=== PATIENT | male | born 1945 | race Caucasian/White ===

== ENCOUNTER → 2023-04-09 09:44 | Outpatient (REF) | payer OTHER, SELFPAY ==
[2023-04-09 10:12] VITALS: BP 131/87; BP_SYST 81
[2023-04-09 10:40] VITALS: BP 122/81
== END ==
LOC: RADI 09:44
PROVIDERS: ATTENDING PHYSICIAN Nurse Practitioner Family; FAMILY PHYSICIAN Nurse Practitioner Family; REFERRING PHYSICIAN Internal Medicine Hematology & Oncology
DX: J90 Pleural effusion, not elsewhere classified (principal)
CPT/HCPCS: 32555; 71045

== ENCOUNTER → 2023-04-30 11:28 | Outpatient (REF) | payer OTHER, SELFPAY ==
[2023-04-30 11:45] VITALS: BP 126/90; BP_SYST 73
[2023-04-30 12:21] VITALS: BP 122/90; BP_SYST 67
== END ==
LOC: RADI 11:28
PROVIDERS: ATTENDING PHYSICIAN Internal Medicine Hematology & Oncology; FAMILY PHYSICIAN Nurse Practitioner Family
DX: C91.10 Chronic lymphocytic leukemia of B-cell type not having achieved remission (principal); J91.0 Malignant pleural effusion
CPT/HCPCS: 32555; 71045; 71260; 74177; Q9967

== ENCOUNTER → 2023-06-01 10:08 | Outpatient (REF) | payer OTHER, SELFPAY ==
[2023-06-01 10:19] VITALS: BP 119/83; BP_SYST 94
[2023-06-01 10:51] VITALS: BP 105/76
== END ==
LOC: RADI 10:08
PROVIDERS: ATTENDING PHYSICIAN Nurse Practitioner Family
DX: J90 Pleural effusion, not elsewhere classified (principal); R06.02 Shortness of breath
CPT/HCPCS: 32555; 71045

== ENCOUNTER → 2023-07-03 09:33 | Outpatient (REF) | payer OTHER, SELFPAY ==
[2023-07-03 10:45] VITALS: BP 142/98; BP_SYST 94
[2023-07-03 12:22] LABS: Blood Urea Nitrogen 17 mg/dl (9-20); Calcium 9.2 mg/dl (8.4-10.2); Carbon Dioxide 29 mmol/L (22-30); Chloride 104 mmol/L (98-107); Glucose 109 mg/dl (70-99); Potassium 4.4 mmol/L (3.5-5.1); Sodium 142 mmol/L (135-145); eGFR > 60.00
[2023-07-03 12:26] LABS: Body Fluid Mononuclear 66.7 %; Body Fluid Polymorphonuclear 33.3 %; Body Fluid WBC 285 /CUMM
[2023-07-03 12:32] LABS: Body Fluid pH 7.47
[2023-07-03 12:52] LABS: TSH Reflex To Free T4 1.55 uIU/ml (0.47-4.68)
[2023-07-03 12:57] LABS: Body Fluid Second Tech BP
[2023-07-03 13:04] LABS: Body Fluid Creatinine 0.8 mg/dl; Body Fluid Glucose 120 mg/dl; Body Fluid LDH 150 U/L
[2023-07-03 13:06] LABS: Body Fluid Triglycerides < 30 mg/dl
[2023-07-03 13:20] LABS: Body Fluid Protein 3.7 g/dl
== END ==
LOC: RADI 09:33
PROVIDERS: Nurse Practitioner Family; ATTENDING PHYSICIAN Nurse Practitioner Family
DX: J90 Pleural effusion, not elsewhere classified (principal); R06.02 Shortness of breath
CPT/HCPCS: 88305; 32555; 36415; 71045; 80048; 82570; 82945; 83615; 83986; 84157; 84443; 84478; 87015; 87070; 87102; 87116; 87205; 88112; 88341; 88342; 89051

== ENCOUNTER → 2023-07-20 06:42 | Outpatient (REF) | payer OTHER, SELFPAY | LOC: HWRAD 06:42 | PROVIDERS: ATTENDING PHYSICIAN Internal Medicine Critical Care Medicine; FAMILY PHYSICIAN Nurse Practitioner Family | DX: J90 Pleural effusion, not elsewhere classified (principal) | CPT/HCPCS: 76700; 93975 ==

== ENCOUNTER → 2023-07-27 09:12 | Outpatient (REF) | payer OTHER, SELFPAY ==
[2023-07-27 09:45] VITALS: BP 134/92; BP_SYST 96
[2023-07-27 10:18] VITALS: BP 111/87; BP_SYST 89
[2023-07-27 10:36] VITALS: BP 111/87
== END ==
LOC: RADI 09:12
PROVIDERS: ATTENDING PHYSICIAN Nurse Practitioner Family
DX: J90 Pleural effusion, not elsewhere classified (principal); I10 Essential (primary) hypertension; E78.5 Hyperlipidemia, unspecified; Z86.73 Personal history of transient ischemic attack (TIA), and cerebral infarction without residual deficits
CPT/HCPCS: 32555; 71045

== ENCOUNTER → 2023-08-16 09:24 | Outpatient (REF) | payer OTHER, SELFPAY ==
[2023-08-16 09:30] VITALS: BP 121/92; BP_SYST 76
[2023-08-16 10:30] VITALS: BP 113/89; BP_SYST 80
== END ==
LOC: RADI 09:24
PROVIDERS: ATTENDING PHYSICIAN Internal Medicine Critical Care Medicine
DX: J90 Pleural effusion, not elsewhere classified (principal)
CPT/HCPCS: 88305; 32555; 71045; 88112

== ENCOUNTER → 2023-09-12 10:56 | Outpatient (REF) | payer OTHER, SELFPAY ==
[2023-09-12 11:21] VITALS: BP 128/90; BP_SYST 77
[2023-09-12 11:45] VITALS: BP 105/77
== END ==
LOC: RADI 10:56
PROVIDERS: ATTENDING PHYSICIAN Internal Medicine Critical Care Medicine; FAMILY PHYSICIAN Nurse Practitioner Family
DX: J90 Pleural effusion, not elsewhere classified (principal); J81.1 Chronic pulmonary edema
CPT/HCPCS: 32555; 71045

== ENCOUNTER → 2023-09-25 06:54 | Outpatient (REF) | payer OTHER, SELFPAY | LOC: PAVMRI 06:54 | PROVIDERS: ATTENDING PHYSICIAN Orthopaedic Surgery; FAMILY PHYSICIAN Nurse Practitioner Family | DX: M54.50 Low back pain, unspecified (principal) | CPT/HCPCS: 72148 ==

== ENCOUNTER → 2023-10-05 08:24 | Outpatient (REF) | payer OTHER, SELFPAY ==
[2023-10-05 08:48] VITALS: BP 131/90; BP_SYST 85
[2023-10-05 09:13] VITALS: BP 114/79; BP_SYST 82
== END ==
LOC: RADI 08:24
PROVIDERS: ATTENDING PHYSICIAN Nurse Practitioner Family
DX: J90 Pleural effusion, not elsewhere classified (principal)
CPT/HCPCS: 32555; 71045

== ENCOUNTER → 2023-11-02 08:19 | Outpatient (REF) | payer OTHER, SELFPAY ==
[2023-11-02 08:30] VITALS: BP 119/85; BP_SYST 76
[2023-11-02 09:15] VITALS: BP 124/88
== END ==
LOC: RADI 08:19
PROVIDERS: ATTENDING PHYSICIAN Internal Medicine Critical Care Medicine
DX: J90 Pleural effusion, not elsewhere classified (principal)
CPT/HCPCS: 32555; 71045

== ENCOUNTER → 2023-11-05 07:38 | Outpatient (REF) | payer OTHER, SELFPAY | LOC: HWRAD 07:38 | PROVIDERS: ATTENDING PHYSICIAN Internal Medicine Hematology & Oncology; FAMILY PHYSICIAN Nurse Practitioner Family | DX: C91.10 Chronic lymphocytic leukemia of B-cell type not having achieved remission (principal); D64.9 Anemia, unspecified | CPT/HCPCS: 71260; 74177; Q9967 ==

== ENCOUNTER → 2023-11-23 11:57 | Outpatient (REF) | payer OTHER, SELFPAY ==
[2023-11-23 12:30] VITALS: BP 125/90; BP_SYST 73
== END ==
LOC: RADI 11:57
PROVIDERS: ATTENDING PHYSICIAN Internal Medicine Critical Care Medicine; FAMILY PHYSICIAN Nurse Practitioner Family
DX: J90 Pleural effusion, not elsewhere classified (principal)
CPT/HCPCS: 32555; 71045

== ENCOUNTER → 2023-12-19 08:24 | Outpatient (REF) | payer OTHER, SELFPAY ==
[2023-12-19 08:39] VITALS: BP 125/76; BP_SYST 75
[2023-12-19 09:07] VITALS: BP 107/76; BP_SYST 69
== END ==
LOC: RADI 08:24
PROVIDERS: ATTENDING PHYSICIAN Nurse Practitioner Family; FAMILY PHYSICIAN Nurse Practitioner Family
DX: J90 Pleural effusion, not elsewhere classified (principal)
CPT/HCPCS: 32555; 71045

== ENCOUNTER → 2024-01-03 09:53 | Outpatient (REF) | payer OTHER, SELFPAY | LOC: HWRAD 09:53 | PROVIDERS: ATTENDING PHYSICIAN Nurse Practitioner Family | DX: R06.09 Other forms of dyspnea (principal) | CPT/HCPCS: 71046 ==

== ENCOUNTER → 2024-01-04 07:14 | Outpatient (REF) | payer OTHER, SELFPAY ==
[2024-01-04 07:25] VITALS: BP 127/94; BP_SYST 98
[2024-01-04 08:06] VITALS: BP 115/88; BP_SYST 86
[2024-01-04 08:17] VITALS: BP 115/88
== END ==
LOC: RADI 07:14
PROVIDERS: ATTENDING PHYSICIAN Nurse Practitioner Family; FAMILY PHYSICIAN Nurse Practitioner Family
DX: J90 Pleural effusion, not elsewhere classified (principal)
CPT/HCPCS: 32555; 71045

== ENCOUNTER → 2024-01-18 07:06 | Outpatient (REF) | payer OTHER, SELFPAY ==
[2024-01-18 07:15] VITALS: BP 130/93; BP_SYST 96
[2024-01-18 08:05] VITALS: BP 122/84; BP_SYST 88
== END ==
LOC: RADI 07:06
PROVIDERS: ATTENDING PHYSICIAN Nurse Practitioner Family; FAMILY PHYSICIAN Nurse Practitioner Family
DX: J90 Pleural effusion, not elsewhere classified (principal)
CPT/HCPCS: 32555; 71045

== ENCOUNTER → 2024-01-31 07:29 | Outpatient (REF) | payer OTHER, SELFPAY ==
[2024-01-31 07:55] VITALS: BP 138/103; BP_SYST 94
[2024-01-31 08:12] VITALS: BP 96/75
== END ==
LOC: RADI 07:29
PROVIDERS: ATTENDING PHYSICIAN Nurse Practitioner Family
DX: J90 Pleural effusion, not elsewhere classified (principal)
CPT/HCPCS: 32555; 71045

== ENCOUNTER → 2024-02-11 09:19 | Outpatient (REF) | payer OTHER, SELFPAY ==
[2024-02-11 09:50] VITALS: BP 124/71; BP_SYST 87
[2024-02-11 10:10] VITALS: BP 111/64
== END ==
LOC: RADI 09:19
PROVIDERS: ATTENDING PHYSICIAN Nurse Practitioner Family
DX: J90 Pleural effusion, not elsewhere classified (principal)
CPT/HCPCS: 32555; 71045

== ENCOUNTER → 2024-02-25 14:54 | Outpatient (REF) | payer OTHER, SELFPAY ==
[2024-02-25 08:58] VITALS: BP 132/93; BP_SYST 92
== END ==
LOC: RADI 14:54
PROVIDERS: ATTENDING PHYSICIAN Nurse Practitioner Family
DX: J90 Pleural effusion, not elsewhere classified (principal)
CPT/HCPCS: 32555; 71045

== ENCOUNTER → 2024-03-05 09:13 | Outpatient (REF) | payer OTHER, SELFPAY ==
[2024-03-05 09:25] VITALS: BP 128/78; BP_SYST 85
[2024-03-05 10:25] VITALS: BP 110/84
== END ==
LOC: RADI 09:13
PROVIDERS: ATTENDING PHYSICIAN Nurse Practitioner Family
DX: J90 Pleural effusion, not elsewhere classified (principal); C91.10 Chronic lymphocytic leukemia of B-cell type not having achieved remission
CPT/HCPCS: 88305; 32555; 71045; 88112

== ENCOUNTER → 2024-03-14 09:48 | Outpatient (REF) | payer OTHER, SELFPAY ==
[2024-03-14 09:55] VITALS: BP 125/81; BP_SYST 91
== END ==
LOC: RADI 09:48
PROVIDERS: ATTENDING PHYSICIAN Nurse Practitioner Family
DX: J90 Pleural effusion, not elsewhere classified (principal)
CPT/HCPCS: 32555; 71045

== ENCOUNTER → 2024-03-19 09:18 | Outpatient (REF) | payer OTHER, SELFPAY | LOC: PET 09:18 | PROVIDERS: ATTENDING PHYSICIAN Internal Medicine Medical Oncology | DX: C91.10 Chronic lymphocytic leukemia of B-cell type not having achieved remission (principal) | CPT/HCPCS: 78815; A9552 ==

== ENCOUNTER → 2024-03-24 09:05 | Outpatient (REF) | payer OTHER, SELFPAY ==
[2024-03-24 09:30] VITALS: BP 115/69; BP_SYST 87
[2024-03-24 10:15] VITALS: BP 103/79
== END ==
LOC: RADI 09:05
PROVIDERS: ATTENDING PHYSICIAN Nurse Practitioner Family
DX: J90 Pleural effusion, not elsewhere classified (principal)
CPT/HCPCS: 32555; 71045

== ENCOUNTER → 2024-04-01 09:25 | Outpatient (REF) | payer OTHER, SELFPAY ==
[2024-04-01 09:35] VITALS: BP 114/71; BP_SYST 88
[2024-04-01 10:21] VITALS: BP 111/83; BP_SYST 92
[2024-04-01 10:54] VITALS: BP 111/83
== END ==
LOC: RADI 09:25
PROVIDERS: ATTENDING PHYSICIAN Nurse Practitioner Family; FAMILY PHYSICIAN Nurse Practitioner Family
DX: J90 Pleural effusion, not elsewhere classified (principal)
CPT/HCPCS: 32555; 71045

== ENCOUNTER → 2024-04-09 09:26 | Outpatient (REF) | payer OTHER, SELFPAY ==
[2024-04-09 09:44] VITALS: BP 121/75; BP_SYST 96
[2024-04-09 10:18] VITALS: BP 104/74
== END ==
LOC: RADI 09:26
PROVIDERS: ATTENDING PHYSICIAN Internal Medicine Critical Care Medicine; FAMILY PHYSICIAN Nurse Practitioner Family
DX: J90 Pleural effusion, not elsewhere classified (principal)
CPT/HCPCS: 32555; 71045

== ENCOUNTER → 2024-04-21 13:03 | Outpatient (REF) | payer OTHER, SELFPAY | LOC: RAD 13:03 | PROVIDERS: ATTENDING PHYSICIAN Nurse Practitioner Adult Health; FAMILY PHYSICIAN Nurse Practitioner Family | DX: M79.89 Other specified soft tissue disorders (principal) | CPT/HCPCS: 93971 ==

== ENCOUNTER → 2024-04-23 09:01 | Outpatient (REF) | payer OTHER, SELFPAY ==
[2024-04-23 09:15] VITALS: BP 110/79; BP_SYST 103
[2024-04-23 09:39] VITALS: BP 114/94; BP_SYST 95
== END ==
LOC: RADI 09:01
PROVIDERS: ATTENDING PHYSICIAN Internal Medicine Critical Care Medicine; FAMILY PHYSICIAN Nurse Practitioner Family
DX: J90 Pleural effusion, not elsewhere classified (principal)
CPT/HCPCS: 32555; 71045

== ENCOUNTER → 2024-04-30 09:47 | Outpatient (REF) | payer OTHER, SELFPAY ==
[2024-04-30 10:04] VITALS: BP 122/99; BP_SYST 98
[2024-04-30 10:40] VITALS: BP 101/83
== END ==
LOC: RADI 09:47
PROVIDERS: ATTENDING PHYSICIAN Nurse Practitioner Family; FAMILY PHYSICIAN Nurse Practitioner Family
DX: J90 Pleural effusion, not elsewhere classified (principal)
CPT/HCPCS: 32555; 71045

== ENCOUNTER → 2024-05-06 12:40 | Outpatient (REF) | payer OTHER, SELFPAY ==
[2024-05-06 12:45] VITALS: BP 120/88; BP_SYST 89
[2024-05-06 12:59] VITALS: BP 102/77
[2024-05-06 13:30] VITALS: BP 90/65; BP_SYST 82
[2024-05-06 13:35] VITALS: BP 90/65
== END ==
LOC: RADI 12:40
PROVIDERS: ATTENDING PHYSICIAN Internal Medicine Critical Care Medicine; FAMILY PHYSICIAN Nurse Practitioner Family
DX: J90 Pleural effusion, not elsewhere classified (principal)
CPT/HCPCS: 32555; 71045

== ENCOUNTER 2024-05-13 12:25 | Inpatient (IN) | payer OTHER, SELFPAY ==
[2024-05-13] VITALS (15 sets, daily range): BP systolic 87–133; BP diastolic 63–82; BMI 33.0; BMI 27.9
[2024-05-13 07:29] LABS: % Basophils 0.3 % (0-2); % Eosinophils 0.5 % (0-6); % Immature Granulocytes 0.6 % (0-0.5); % Lymphocytes 32.2 % (20.5-51.1); % Monocytes 6.1 % (1.7-9.3); % Neutrophils 60.3 % (42.2-75.2); Absolute Eosinophils 0.1 10^3/uL (0-0.7); Absolute Immature Granulocytes 0.1 10^3/uL (0-0.05); Absolute Lymphocytes 4.5 10^3/uL (1.2-3.4); Absolute Monocytes 0.9 10^3/uL (0.1-0.6); Absolute Neutrophils 8.5 10^3/uL (1.4-6.5); Hematocrit 33.7 % (39.0-52.0); Hemoglobin 10.2 g/dL (13.0-18.0); Mean Corp Hgb Conc. 30.3 g/dL (33.0-37.0); Mean Corpuscular Hgb 24.8 pg (27.0-31.0); Mean Platelet Volume 10.1 fL (7.4-10.4); Nucleated Red Blood Cells % 0.1 % (-); Platelet Count 207 10^3/uL (130-400); Red Blood Cell Count 4.11 10^6/uL (4.70-6.10); Red Cell Dist. Width 17.7 % (11.5-14.5)
[2024-05-13 07:38] LABS: ALT (SGPT) 19 U/L (0-50); AST (SGOT) 20 U/L (17-59); Albumin 3.2 g/dl (3.5-5.0); Alkaline Phosphatase 84 U/L (38-126); Blood Urea Nitrogen 19 mg/dl (9-20); Calcium 8.8 mg/dl (8.4-10.2); Carbon Dioxide 28 mmol/L (22-30); Chloride 104 mmol/L (98-107); Estimated Creatinine Clearance 88 ml/min; Glucose 211 mg/dl (70-99); Potassium 4.2 mmol/L (3.5-5.1); Sodium 140 mmol/L (135-145); Total Bilirubin 1.2 mg/dl (0.2-1.3); Total Protein 5.9 g/dl (6.3-8.2); eGFR > 60.00
--- NOTE | 2024-05-13 07:46 | ED.GENMED ---
History of Present Illness
General
Chief Complaint: Cardiac Symptoms
Source: patient
Exam Limitations: none
Time Seen by Provider: 05/13/24 06:43
Nursing documentation reviewed up to this point in time: agreed with
History of Present Illness
History of Present Illness:
78-year-old male with a past medical history of hypertension, hyperlipidemia, CLL who presents to the emergency room with for evaluation of shortness of breath. Patient is currently receiving treatment through [facility] for CLL; he
has recurrent pleural effusions and has been receiving frequent thoracentesis via interventional radiology here at [place] and in fact is scheduled for thoracentesis later this afternoon. He presents to the emergency room today with his for
evaluation of increased shortness of breath and edema. The symptoms have been ongoing for at least the past week although weight gain and edema have been ongoing for about a month�patient cites about a 25 pound weight gain. Over the past few days
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 was not able to
convince him to come to the hospital until today when shortness of breath was worsening. He denies any chest pain. He denies any fever, chills, cough. He denies any other complaints. He does take daily Lasix 40 mg p.o. however says he is
only intermittently compliant.
Past History
Past History
ED Past Medical History: CVA, HTN, Hypercholesterolemia and Other (Hernia)
ED Past Surgical History: None
Social History
Tobacco: Non-smoker
Alcohol: Occasional
Drug: None
Personal:
Living: with family
Employment: Employed
Family History
Family History: Other (Noncontributory)
Review of Systems
Review of Systems
All Other Systems: ROS reviewed and negative except as documented in HPI and ROS
Constitutional: Reports weight gain and fatigue; Denies fever or chills
Respiratory: Reports trouble breathing; Denies cough
Cardiac: Denies chest pain
ABD/GI: Denies abdominal pain, nausea or vomiting
: Denies flank pain
Musculoskeletal: Reports edema
Neurological: Denies headache
Phy Exam
Physical Exam
Physical Exam:
General: Awake, alert, oriented x3; chronically ill appearing
Head: Normocephalic, atraumatic
Eyes: Conjunctiva normal, sclera anicteric
Throat: Airway intact, handling secretions
Neck: Trachea midline, + JVD noted
Lungs: Tachypnea with mild hypoxia requiring 2 L nasal cannula; breath sounds are diminished at the lung bases and he has faint rales bilaterally
Heart: Regular rate and irregular rhythm, no murmurs, gallops, or rubs�triage tachycardia resolved by my assessment
Abd: Soft, non distended, nontender
Neuro: No gross deficits
Extremities: Anasarca with edema in all extremities; extremities are warm and well-perfused
Scores
Heart Failure Risk
Heart Failure Risk Score: Yes
History of Stroke or TIA: Yes
History of intubation for respiratory distress: No
Heart rate on ED arrival >/= 110: Yes
SaO2 <90% on arrival on room air: Yes
HR >/=110 during 3min walk test (or too ill to perform test): Yes
ECG has acute ischemic changes: No
Urea >/=12mmol/L (BUN 33.6mg/dL): No
Serum CO2>/=35mmol/L: No
Troponin I or T elevated to [place] Level (0.4mg/dL): No
NT-proBNP >/=5,000ng/L (5,000pg/ml): Yes
HF Risk Score: 5
Admission Status: VERY HIGH RISK 39.8% Consider admission to hospital
Heart Score for Chest Pain Patients
STEMI patient?: Not applicable
Withdrawal Assessment of Alcohol
Withdrawal Assessment Completed?: Not applicable
Course
Orders/Labs/Results
Orders:
Orders
05/13/24 06:43
Electrocardiogram (*1) Urgent
Reason for Study: Shortness of Breath
EKG- Treatment ONCE
CR Chest Portable - 1 View Urgent
Comment:
Reason For Exam: sob
Reason Study Needs to be Portable: Unable to Transport
05/13/24 07:16
Complete Blood Count/With Diff Urgent
Comprehensive Metabolic Panel Urgent
NT-proBNP Urgent
05/13/24 07:42
IRAD CONSULT Urgent
Consulting Provider: Desmond Iyer
Was physician already notified: Yes
Reason for Consult/Procedure: throracentesis
Acknowledgement that appropriate orders are entered: Yes
05/13/24 07:46
Furosemide [Lasix] 40 mg IV NOW STA
Abnormal Lab Results
05/13/24
07:16
WBC 14.0 H 10^3/uL
(4.8-10.8)
RBC 4.11 L 10^6/uL
(4.70-6.10)
Hgb 10.2 L g/dL
(13.0-18.0)
Hct 33.7 L %
(39.0-52.0)
MCH 24.8 L pg
(27.0-31.0)
MCHC 30.3 L g/dL
(33.0-37.0)
RDW 17.7 H %
(11.5-14.5)
Abs Immat Gran (auto) 0.1 H 10^3/uL
(0-0.05)
Absolute Neuts (auto) 8.5 H 10^3/uL
(1.4-6.5)
Absolute Lymphs (auto) 4.5 H 10^3/uL
(1.2-3.4)
Absolute Monos (auto) 0.9 H 10^3/uL
(0.1-0.6)
Immature Gran % 0.6 H %
(0-0.5)
Glucose 211 H mg/dl
(70-99)
Total Protein 5.9 L g/dl
(6.3-8.2)
Albumin 3.2 L g/dl
(3.5-5.0)
05/13/24 07:16
05/13/24 07:16
Vital Signs
Initial and Last Documented VS:
Initial Vital Signs
Pulse Resp BP Pulse Ox
116 28 112/82 100
05/13/24 06:38 05/13/24 06:38 05/13/24 06:38 05/13/24 06:38
Last Documented Vital Signs
Pulse Resp BP Pulse Ox
93 23 112/82 95
05/13/24 07:30 05/13/24 07:30 05/13/24 06:38 05/13/24 07:36
MDM/Problems Addressed
Differential Diagnosis Includes:
CHF, pneumonia, anemia, pleural effusion
MDM/Problems Addressed:
78-year-old male presents for evaluation of shortness of breath associated with weight gain and edema; known history of CLL and recurrent pleural effusions scheduled for outpatient thoracentesis later today. Vitals and exam as above�certainly by
exam he appears volume overloaded and suspect there is an element of CHF. Although likely pleural effusion contributing as well. Will place an IV check labs including a CBC and a CMP, proBNP. Check an EKG and chest x-ray. Monitor closely
reassess after the above.
Labs reviewed: CBC shows leukocytosis in the setting of known CLL; mild anemia essentially stable. CMP shows random glucose 211 no other clinically significant abnormalities, no signs of DKA. Chest x-ray reviewed by me does show bilateral pleural
effusions as well as pulmonary edema. EKG shows A-fib. Will plan to treat with IV diuretic. Discussed with interventional radiology to notify that patient will be admitted to the hospital and to facilitate thoracentesis inpatient. Case discussed
with hospitalist for admission for continued management of acute hypoxic respiratory failure secondary to CHF and recurrent pleural effusions.
Chronic conditions affecting care:
CLL
*Radiology
Radiology exam reviewed: preliminary read by ED provider
*Pulse Oximetry
Patient hypoxic: yes
*EKG
Interpreted by ED Provider?: Yes
Heart Rate: 127
Rate: tachycardiac
Rhythm: a-fib
[place]: normal axis
Interval: normal interval
QRS Pattern: low voltage
Ischemia: other (Nonspecific T wave abnormality)
*Critical Care Note
Total Time (30-74mins, 75-104mins- exclusive of procedures): Not Applicable
Data Reviewed
Review of Other/Old Records Reveals: Labs and Records
Source: patient, records and spouse
Patient Management
Discussion with other providers: Hospitalist (Discussed with hospitalist) and Optician Manager (Discussed with interventional radiologist)
Escalation/DeEscalation of care consider admission/obs:
Admission indicated
ED Attending Note
-
Portions of this chart may have been created with voice recognition software.� Occasional wrong word or��sound alike� substitutions may have occurred due to the inherent limitations of voice recognition software.
Discharge Plan
Departure
Patient Disposition: Admit
Date of Disposition: 05/13/24
Time of Disposition: 07:59
Admit to doctor: Montiel
Presentation/result/management discussed w/ accepting MD/DO: Hospitalist
Discharge Problem:
Acute hypoxic respiratory failure, Pleural effusion, CHF (congestive heart failure), Anasarca, Atrial fibrillation, Hyperglycemia
Prescriptions:
No Action
latanoprost 0.005 % Drops
1 drp LEFT EYE HS
fluticasone propionate [Flonase] 50 mcg/actuation [place],Suspension
1 spray INTRANASAL BIDPRN PRN (Reason: allergies)
rosuvastatin [Crestor] 40 mg Tablet
40 mg PO DAILY
furosemide 40 mg Tablet
40 mg PO DAILY
cyanocobalamin (vitamin B-12) [Vitamin B-12] 1,000 mcg Tablet
1,000 mcg PO DAILY
famotidine 20 mg Tablet
20 mg PO DAILY
Brukinsa 80 mg Capsule
160 mg PO BID
acyclovir 400 mg Tablet
400 mg PO BID
aspirin 81 mg Tablet
81 mg PO DAILY
Interventions
Interventions:
*Risk Screen - Suicide Last Done: 05/13/24 06:38
*General Assessment Last Done: 05/13/24 07:09
*Neglect/Abuse Screening Last Done: 05/13/24 06:38
*ED- Fall Risk Assessment Last Done: 05/13/24 07:09
*ED COVID-19 Vaccine History Last Done: 05/13/24 07:09
ED- Pulmonary Assessment Last Done: 05/13/24 07:36
ED- Cardiac Assessment Last Done: 05/13/24 07:11
Discharge Date and Time
Print Language: MACEDONIAN
[2024-05-13 07:47] LABS: NT-proBNP 1470 pg/ml
[2024-05-13] MEDS: LASIX 40 MG IV (07:56)
--- NOTE | 2024-05-13 10:22 | CON.CAR ---
Addendum entered and electronically signed by Kiel Mcclain MD 05/13/24 11:18:
I saw and examined the patient.
The ROUTE DELIVERY DRIVER or PA's note was reviewed and I agree with the note.
Comment: General: Well developed, well nourished in NAD.
Neck: Supple, no JVD, HJR, carotids +2 B/L, no bruits bilaterally.
Heart: Non displaced PMI, RRR, no murmurs, No S3, S4, no rubs.
Lungs: Scattered rhonchi at the bases
Extremities: No clubbing, cyanosis or edema bilaterally.
Neuro: Grossly nonfocal, awake, alert and oriented x3.
Jaxson has a history of CLL on Brukinsa since January 2023 and more recently on [facility] followed by [place] [facility], recurrent pleural effusions with thoracenteses approximately once per week, hypertension, hyperlipidemia, CVA in October 2019. He was
seen in our office on 05/12/2024 with lower extremity edema and shortness of breath. He was scheduled for outpatient thoracentesis later this week but presented with short of breath and found to be in CHF with bilateral pleural effusions and a
proBNP of 1470. Telemetry with episodes of likely atrial tachycardia
Will treat with IV Lasix. Will check echocardiogram. Will add low-dose Toprol for atrial tachycardia episodes if blood pressure tolerates.
Addendum entered and electronically signed by Gillian Chen PA-C 05/13/24 11:12:
of note, patient's reports on prior thoracentesis, malignant cells were found in fluid.
Original Note:
Consultation
Consultation Request
Date/Time Consultation Performed: 05/13/24
Requesting Provider: Dr. Argueta
Performing Provider: Gillian Chen PA-C for Dr. Mcclain
Reason for Consultation: CHF, B/L pleural effusions
Medical History
-
Chief Complaint: SOB
History of Present Illness:
Patient is a 78 yo M with PMH of CLL on Brukinsa since 01/2023 and more recently [facility] followed by [place] [facility], recurrent pleural effusions with thoracenteses approximately once per week (dose of Brukinsa had been decreased in past as felt to be
contributing to effusions), hypertension, hyperlipidemia, history of stroke in 10/2019 who was seen in cardiology office 05/12/24 with SOB, LE edema. He was scheduled for OP thoracentesis today and is planned for echo on Tuesday 05/16. CXR with evidence
of CHF with chronic B/L pleural effusions. ProBNP 1470. Not chronically on supp O2 at home although patient and feel would be beneficial to patient. There has been question in past about atrial fibrillation, and historically has not been felt
to have afib but SR with frequent PACs and brief runs of atrial tachycardia. Cardiology consulted for evaluation.
PMH:
recurrent pleural effusions with thoracenteses approximately once per week (dose of Brukinsa had been decreased in past as felt to be contributing to effusions)
Chronic HFpEF
CLL on Brukinsa since 01/2023 and more recently [facility] followed by [place] [facility]
PACs
Paroxysmal atrial tachycardia
hypertension
hyperlipidemia
history of stroke in 10/2019
GERD
Past Medical History
Past Medical History: Other (in HPI)
Social History
Tobacco: Non-Smoker
Personal:
Living: With Family
Employment: Retired
Family History
Family History: Diabetes
Allergies / Home Medications
Allergy/AdvReac Type Severity Reaction Status Date / Time
No Known Allergies Allergy Verified 04/23/24 09:37
�Medication �Instructions �Recorded �Confirmed �Type
fluticasone propionate 50 1 spray intranasal BIDPRN PRN 12/07/22 05/13/24 History
mcg/actuation nasal allergies
spray,suspension
latanoprost 0.005 % eye drops 1 drp LEFT EYE HS 12/07/22 05/13/24 History
rosuvastatin 40 mg tablet (Crestor) 40 mg PO HS 12/07/22 05/13/24 History
cyanocobalamin (vitamin B-12) 1,000 mcg PO DAILY 12/14/22 05/13/24 History
1,000 mcg tablet (Vitamin B-12)
famotidine 20 mg tablet 20 mg PO DAILY 12/14/22 05/13/24 History
furosemide 40 mg tablet 80 mg PO DAILY 12/14/22 05/13/24 History
zanubrutinib 80 mg capsule 160 mg PO BID 02/26/23 05/13/24 History
(Brukinsa)
acyclovir 400 mg tablet 400 mg PO Q12H 04/09/24 05/13/24 History
Beet Root Gummy 1 gummy PO DAILY 05/13/24 History
aspirin 81 mg tablet,delayed 81 mg PO DAILY 05/13/24 05/13/24 History
release
dextromethorphan-guaifenesin 30 2 tab PO DAILYPRN PRN COUGH 05/13/24 05/13/24 History
mg-600 mg tablet extended
hr (Mucinex DM)
assfqbeb-ichtwrpw-vad C 250 1 tab PO DAILY 05/13/24 05/13/24 History
mg-herbal no.124 11.66 mg
chewable tablet (Airborne Gummy)
obinutuzumab 1,000 mg/40 mL 1,000 mg IV QMONTH 05/13/24 05/13/24 History
intravenous solution
potassium chloride 20 mEq 40 meq PO DAILY 05/13/24 05/13/24 History
tablet,extended release
therapeutic multivitamin 1 tab PO DAILY 05/13/24 05/13/24 History
Review of Systems
-
History Source: Patient and Family
All other systems: Negative unless noted
Physical Exam
Vital Signs
Temp Pulse Resp BP Pulse Ox
98.6 F 104 21 109/80 92
05/13/24 09:53 05/13/24 09:30 05/13/24 09:30 05/13/24 09:00 05/13/24 09:30
Lab Results
05/13/24 07:16
05/13/24 07:16
Oxx-F-Qlpaawqqlbd Pept 1470 pg/ml 05/13/24 07:16
Physical Exam
General: No Apparent Distress, Comfortable and Other (on supp O2)
HEENT: Normocephalic, Anicteric and Moist Mucous Membranes
Respiratory: Non Labored Respirations and Other (decreased BS B/L)
Cardiac: S1/S2, Regular Rhythm and Other (brief runs of atach on tele while in room)
GI: Soft, Non Tender, Non Distended and Normal Bowel Sounds
Musculoskeletal: No Clubbing, No Cyanosis and Edema (3+ edema of B/L LE)
Skin: Warm and Dry
Neuro: AO x 3
Impression / Plan
-
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
Assessment:
Presentation with SOB
Recurrent, symptomatic pleural effusions with thoracenteses approximately once per week (dose of Brukinsa had been decreased in past as felt to be contributing to effusions)
s/p thoracenteses 12/15/2022, 02/26/2023, 04/09/2023, 04/30/2023, 06/01/2023, 07/03/2023, 07/27/2023, 08/16/2023, 09/12/2023, 10/05/2023, 11/02/2023, 11/23/2023, 12/19/2023, 01/04/2024, 01/31/2024, 02/11/2024, 02/25/2024, 03/05/2024, 03/14/2024, 03/24/2024,
04/01/2024, 04/09/2024, 04/23/2024, 04/30/2024, 05/06/2024
Acute on chronic HFpEF
Leukocytosis
CLL on Brukinsa since 01/2023 and more recently [facility] followed by [place] [facility]
PACs
Paroxysmal, rapid atrial tachycardia
hypertension
hyperlipidemia
history of stroke in 10/2019
GERD
Hypoalbuminemia, mild
Chronic anemia
ECHO 12/07/22: EF 60 to 65%, technically difficult study, no significant valvular pathology, trivial pericardial effusion, pleural effusion noted, IVC dilated and does not collapse
Plan:
-Patient with known CLL, followed by [place] [facility] also with history of chronic heart failure with preserved EF who has undergone B/L thoracenteses, if counts of correctly totaling 25 procedures with an the last year and a half. He was seen in the
office yesterday and felt to be significantly volume overloaded and had complained of shortness of breath at rest. He was referred to the ER. He was scheduled for outpatient thoracentesis today and echo Tuesday 05/16.
-Per patient's , pleural effusions felt to be at least in part secondary to his CLL. He is on Brukinsa, of which dose has been decreased in the past as felt to be contributing to effusions.
-She tells me that in past he was not felt to be a candidate for Pleurx catheter due to elevated risk of infection, and was not requiring thoracenteses frequently enough. Within the last several months he has essentially been requiring
thoracentesis once per week. would consider repeat eval for pleurx catheter
-no recent fluid analysis noted. d/w hospitalist, will obtain with thoracentesis today
-proBNP 1470. CXR with evidence of CHF superimposed on chronic pleural effusions. continue diuresis with IV lasix. on po lasix 80mg daily as OP
-check echo, last from 2022 as above
-wean supp O2 as able. not on supp O2 as OP. will eval for home O2 prior to DC.
-noted to be in SR with PACs and brief runs of rapid atach on review of tele in ER. no clear atrial fibrillation. will follow on admission. will attempt to add low dose BB as BP allows, low but stable in ER.
-prognosis regarding cancer unclear at this time. would recommend inpatient oncology evaluation.
- reports palliative care was previously discussed to some extent however per primary oncologist, he was 'not felt to be there yet' when previously discussed. appears palliative care would be appropriate
-will need to confirm code status.
-d/w patient and at bedside in detail.
Data Reviewed
-
EKG: Tracing Personally Visualized and interpreted
Radiology: Report Reviewed by me
Medical Tests (Nuc Med, Echo etc): Report Reviewed by me
Labs: Labs Reviewed by me
Old Records: Reviewed
[2024-05-13 11:21] LABS: Body Fluid pH 7.45
[2024-05-13 11:32] LABS: LDH 202 U/L (120-246)
[2024-05-13 11:53] LABS: Body Fluid Amylase < 30 U/L; Body Fluid Glucose 125 mg/dl; Body Fluid LDH 132 U/L; Body Fluid Protein < 2.0 g/dl; Body Fluid Triglycerides < 30 mg/dl
--- NOTE | 2024-05-13 11:56 | HPS.HSE ---
Family Physician
-
Family Physician: NOEL Hubbard
Chief Complaint
-
CHF
History of Present Illness
78 y/o M with PMH of CLL on Brukinsa since 01/2023 and more recently [facility] followed by [facility], recurrent pleural effusions with thoracenteses approximately once per week (dose of Brukinsa had been decreased in past as felt to be contributing
to effusions), hypertension, hyperlipidemia, history of stroke in 10/2019 presents to today for SOB and edema. Ongoing for past 1 week although weight increasing for 1 month - roughly 25 lbs. He was seen in cardiology office 05/12/24 with SOB, LE
edema. He was scheduled for OP thoracentesis today and for echo on Tuesday 05/16. in ER, CXR showed bilateral pleural effusions and elvated BNP. Weight up 25 lbs from dry weight. Patient was sent to IR for thoracentesis and admitted for IV diuresis.
Cards consulted.
Medical History
Past Medical History
Past Medical History: Reports Other (PMH of CLL on Brukinsa since 01/2023 and more recently [facility] followed by [facility], recurrent pleural effusions with thoracenteses approximately once per week (dose of Brukinsa had been decreased in past as
felt to be contributing to effusions), hypertension, hyperlipidemia, history of stroke i)
Past Surgical History: Reports None
Social History
Tobacco: Non-smoker
Alcohol: Occasional
Drug: None
Personal:
Living: With Family
Employment: Employed
Family History
Family History: Not pertinent
Allergies / Home Medications
Allergies reflects when Allergies were last updated in [facility].
Home Medications with original date entered in [facility]
Allergy/Medication List:
Allergies
Allergy/AdvReac Type Severity Reaction Status Date / Time
No Known Allergies Allergy Verified 04/23/24 09:37
Home Medications
fluticasone propionate 50 mcg/actuation nasal spray,suspension 1 spray intranasal BIDPRN PRN allergies 12/07/22
latanoprost 0.005 % eye drops 1 drp LEFT EYE HS 12/07/22
rosuvastatin 40 mg tablet (Crestor) 40 mg PO HS 12/07/22
cyanocobalamin (vitamin B-12) 1,000 mcg tablet (Vitamin B-12) 1,000 mcg PO DAILY 12/14/22
famotidine 20 mg tablet 20 mg PO DAILY 12/14/22
furosemide 40 mg tablet 80 mg PO DAILY 12/14/22
zanubrutinib 80 mg capsule (Brukinsa) 160 mg PO BID 02/26/23
acyclovir 400 mg tablet 400 mg PO Q12H 04/09/24
Beet Root Gummy 1 gummy PO DAILY 05/13/24
Immune Retore 1 cap PO DAILY 05/13/24
aspirin 81 mg tablet,delayed release 81 mg PO DAILY 05/13/24
dextromethorphan-guaifenesin 30 mg-600 mg tablet extended hr (Mucinex DM) 2 tab PO DAILYPRN PRN COUGH 05/13/24
sbrudzcg-fldcsybn-vde C 250 mg-herbal no.124 11.66 mg chewable tablet (Airborne Gummy) 1 tab PO DAILY 05/13/24
obinutuzumab 1,000 mg/40 mL intravenous solution 1,000 mg IV QMONTH 05/13/24
potassium chloride 20 mEq tablet,extended release 40 meq PO DAILY 05/13/24
therapeutic multivitamin 1 tab PO DAILY 05/13/24
Review of Systems
-
A 12 point ROS was completed and negative except as noted: Yes
Physical Exam
Vital Signs
Vital Signs
Temp Pulse Resp BP Pulse Ox
98 F 105 15 105/73 95
05/13/24 10:05 05/13/24 11:00 05/13/24 10:57 05/13/24 11:00 05/13/24 10:27
Physical Exam
General: No Apparent Distress and Appears Chronically Ill
HEENT: NormoCephalic, Anicteric and Other (+JVD)
Respiratory: Crackles and Decreased Breath Sounds
Cardiac: Irregular Rhythm
GI: Soft and Non Tender
Musculoskeletal: Edema, Left Lower Extremity and Edema, Right Lower Extremity
Neuro: AO x 3
Psych: Calm
Laboratory Results
-
05/13/24 07:16
05/13/24 07:16
Laboratory Results
Total Bilirubin 1.2 mg/dl (0.2-1.3) 05/13/24 07:16
AST 20 U/L (17-59) 05/13/24 07:16
ALT 19 U/L (0-50) 05/13/24 07:16
Alkaline Phosphatase 84 U/L (38-126) 05/13/24 07:16
Data Reviewed
-
Lab Data: Labs Reviewed by me
Impression/Plan
-
Assessment:
Acute on chronic HFpEF
- tele admission
- continue IV Lasix - requires intensive monitoring of I/Os, weights, lytes
- check Echo
- DCA Cards following
- salt and fluid restrictions
Bilateral pleural effusions
Recurrent, symptomatic pleural effusions with thoracenteses approximately once per week (dose of Brukinsa had been decreased in past as felt to be contributing to effusions)
- s/p L thoracentesis 05/13: 1500 cc removed. fluid labs pending
- may need to consider PleurX placement as nearly 25 procedures in last 18 months.
Leukocytosis
CLL on Brukinsa since 01/2023 and more recently [facility] followed by [facility]
- Onc consult for prognosis.
PACs
Paroxysmal, rapid atrial tachycardia
- low dose beta-qiana
Essential hypertension
hyperlipidemia
- statin
history of stroke in 10/2019
- continue ASA
GERD
Hypoalbuminemia, mild
Chronic anemia
DVT ppx: Lovenox
Code: Full
[2024-05-13 12:02] LABS: Body Fluid Polymorphonuclear 38.2 %; Body Fluid WBC 225 /CUMM
[2024-05-13 12:03] LABS: Body Fluid Mononuclear 61.8 %
[2024-05-13 12:05] LABS: Body Fluid Second Tech CF
[2024-05-13] MEDS: TOPROL XL PO (13:06)
--- NOTE | 2024-05-13 15:48 | CARDSERVLU ---
Echocardiogram with Lumason completed after protocol screening completed. Allergies verified.
Patent IV site: _Right antecubital IV site clear____
IV site flushed with 0.9% NaCl pre and post administration.
Diluted bolus method utilized to enhance visualization of ventricular herbert.
Total volume given: __4__ mL
Patient tolerated all procedures well without complications.
[2024-05-13] MEDS: TOPROL XL 12.5 MG PO (16:56)
[2024-05-13] MEDS: LOVENOX 40 MG SC (16:56)
[2024-05-13] MEDS: ZOVIRAX 400 MG PO (20:46)
[2024-05-13] MEDS: NON-FORMULARY ITEM 160 MG PO (20:48)
[2024-05-13] MEDS: CRESTOR 40 MG PO (20:53)
[2024-05-13] MEDS: XALATAN OPHTHALMIC SOLUTION 1 DROP LEFT EYE (20:54)
[2024-05-14] VITALS (7 sets, daily range): BP systolic 94–116; BP diastolic 59–80; PULSE 78–135; O2SAT 94; BMI 27.6
[2024-05-14] MEDS: ASPIR LOW (ENTERIC COATED) 81 MG PO (08:17)
[2024-05-14] MEDS: KCL 40 MEQ PO (08:23)
[2024-05-14] MEDS: PEPCID 20 MG PO (08:23)
[2024-05-14] MEDS: VITAMIN B-12 1000 MCG PO (08:24)
[2024-05-14] MEDS: THERAGRAN 1 TABLET PO (08:24)
[2024-05-14] MEDS: TOPROL XL PO (08:24)
[2024-05-14] MEDS: NON-FORMULARY ITEM 160 MG PO ×2 (08:25→21:16)
[2024-05-14] MEDS: ZOVIRAX 400 MG PO ×2 (08:27→21:16)
--- NOTE | 2024-05-14 08:38 | CON.ONC ---
Impression
Impression
78 year old male
CLL
Recurrent BL Pleural Effusions
Plan
Plan
- WBC counts are slightly elevated at 14 with lymphocytes 32%, outpatient WBC counts have been stable. Leukocytosis at this time is more likely reactive to BL pleural effusions than disease progression of CLL.
- Flow cytometry on fluid analysis from 03/15/24 demonstrating 18% monoclonal B-cells with CD5 and partial CD23 compatible with CLL. Fluid analysis from 05/13/24 overall is exudative by Light's criteria. Will follow repeat fluid cytology results from
05/13/24.
- On Brukinsa and Gazyva for CLL, will continue. Has follow up with [facility] in May.
- Given stable cell counts, lack of constitutional symptoms and PET scan imaging from 03/19, these recurrent pleural effusions seem less likely to be due to CLL progression, though there is likely some contribution. Would recommend Pulmonology
evaluation for Pleurex catheter placement.
Patient History
History of Present Illness
Shiv is a 78 year old man with a past medical history of CLL initially followed by Dr. Blanc but recently switched to [facility], on Brukinsa and Gazyva, h/o frequent recurrent bilateral pleural effusions with increasing frequency of
therapeutic thoracentesis, hypertension, hyperlipidemia, h/o CVA in 2019 who presented to the ED with complaints of worsening SOB and lower extremity edema. He was seen as OP by Cardiology on 05/13/24 and scheduled for thoracentesis on 05/16, however
he presented to the ED before he could receive it. He has not been having any fevers, chills, night sweats or other constitutional symptoms during this time period. He cannot recall his oncologists name nor whether they had a comment on what they
felt was the cause of the pleural effusions. He had been evaluated in the past for a pleurex catheter but at that time was not felt to be a good candidate. He reports that he takes his Furosemide daily, but that it will work intermittently. When
asked how much he takes, he said 'three of the 20s,' however, his home dose is listed as 80mg.
Past-Medical/Surgical History
Past Medical History: CLL, Hypertension, Hyperlipidemia, h/o CVA, Back pain, hernia, arthritis
Past Surgical History: Robotic hernia repair 2021, wisdom tooth extraction
Patient Medication
�Medication �Instructions �Recorded �Confirmed �Last Taken �Type
fluticasone propionate 50 1 spray intranasal BIDPRN PRN 12/07/22 05/13/24 05/06/24 History
mcg/actuation nasal allergies
spray,suspension
latanoprost 0.005 % eye drops 1 drp LEFT EYE HS Eye Condition 12/07/22 05/13/24 05/12/24 History
rosuvastatin 40 mg tablet (Crestor) 40 mg PO HS High Cholesterol 12/07/22 05/13/24 05/12/24 History
cyanocobalamin (vitamin B-12) 1,000 mcg PO DAILY Supplement 12/14/22 05/13/24 05/12/24 History
1,000 mcg tablet (Vitamin B-12)
famotidine 20 mg tablet 20 mg PO DAILY Gastrointestinal 12/14/22 05/13/24 05/12/24 History
Issue
furosemide 40 mg tablet 80 mg PO DAILY Fluid 12/14/22 05/13/24 05/12/24 History
Retention/Swelling
zanubrutinib 80 mg capsule 160 mg PO BID Cancer 02/26/23 05/13/24 05/13/24 History
(Brukinsa)
acyclovir 400 mg tablet 400 mg PO Q12H Infection 04/09/24 05/13/24 05/13/24 History
Beet Root Gummy 1 gummy PO DAILY 05/13/24 05/13/24 05/12/24 History
Immune Retore 1 cap PO DAILY 05/13/24 05/13/24 05/12/24 History
aspirin 81 mg tablet,delayed 81 mg PO DAILY Blood Clot 05/13/24 05/13/24 05/12/24 History
release Prevention/Tx
dextromethorphan-guaifenesin 30 2 tab PO DAILYPRN PRN COUGH 05/13/24 05/13/24 Unknown History
mg-600 mg tablet extended
hr (Mucinex DM)
hpsapjhg-ltqbynuw-cun C 250 1 tab PO DAILY Supplement 05/13/24 05/13/24 05/12/24 History
mg-herbal no.124 11.66 mg
chewable tablet (Airborne Gummy)
obinutuzumab 1,000 mg/40 mL 1,000 mg IV QMONTH Cancer 05/13/24 05/13/24 05/08/24 History
intravenous solution
potassium chloride 20 mEq 40 meq PO DAILY Supplement 05/13/24 05/13/24 05/12/24 History
tablet,extended release
therapeutic multivitamin 1 tab PO DAILY Supplement 05/13/24 05/13/24 05/12/24 History
Active Medications
Generic Name Dose Route Start Last Admin
Trade Name Freq PRN Reason Stop Dose Admin
Acetaminophen 650 mg 05/13/24 15:34
Acetaminophen 325 Mg Tablet PO 06/10/24 15:33
Q4HPRN PRN
mild pain/FRIEND/temp> 100.4F
Acyclovir Sodium 400 mg 05/13/24 20:00 05/13/24 20:46
Acyclovir Sodium 200 Mg Capsule PO 05/23/24 19:59 400 mg
Q12 BIBI Administration
Aspirin 81 mg 05/14/24 08:00
Aspirin 81 Mg (Enteric Coated) Tablet PO 06/11/24 07:59
DAILY BIBI
Bisacodyl 10 mg 05/13/24 14:38
Bisacodyl 10 Mg Rectal Suppository RECTAL 06/10/24 14:37
[id number] PRN
constipation
Cyanocobalamin 1,000 mcg 05/14/24 08:00
Cyanocobalamin 1,000 Mcg Tablet PO 06/11/24 07:59
DAILY BIBI
Enoxaparin Sodium 40 mg 05/13/24 18:00 05/13/24 16:56
Enoxaparin Sodium 40 Mg/0.4 Ml Syringe SC 06/10/24 17:59 40 mg
QPM BIBI Administration
Famotidine 20 mg 05/14/24 08:00
Famotidine 20 Mg Tablet PO 06/11/24 07:59
DAILY BIBI
Furosemide 80 mg 05/14/24 08:00
Furosemide 100 Mg (10 Mg/Ml) 10 Ml Vial IV 06/11/24 07:59
DAILY BIBI
Latanoprost 0 drop 05/13/24 22:00 05/13/24 20:54
Latanoprost 0.005% (Ophthalmic Solution) 2.5 Ml Bottle LEFT EYE 06/10/24 21:59 1 drop
HS BIBI Administration
Metoprolol Succinate 12.5 mg 05/13/24 12:00 05/13/24 13:06
Metoprolol 12.5 Mg Extended Release Dose (1/2 Of 25 Mg Xl Tablet) PO 06/10/24 11:59 Not Given
DAILY BIBI
Metoprolol Tartrate 2.5 mg 05/13/24 16:03
Metoprolol 5 Mg/5 Ml Vial IV 06/10/24 16:02
Q6HPRN PRN
sustained tachycardia, HR>130
Multivitamins Therapeutic 1 tablet 05/14/24 08:00
Multivitamin Tablet PO 06/11/24 07:59
DAILY BIBI
Zanubrutinib [ 0 mg 05/13/24 20:00 05/13/24 20:48
Brukinsa] 80 Mg PO 06/10/24 19:59 160 mg
Capsule: Two BID BIBI Administration
Capsules (160mg) Po
Twice Daily
Ondansetron HCl 4 mg 05/13/24 14:38
Ondansetron 4 Mg/2 Ml Vial IV 06/10/24 14:37
Q6HPRN PRN
nausea and vomiting
Polyethylene Glycol 17 grams 05/13/24 14:38
Polyethylene Glycol Powder 17 Grams Packet PO 06/10/24 14:37
DAILYPRN PRN
constipation
Potassium Chloride 40 meq 05/14/24 08:00
Potassium Chloride 20 Meq Extended Release Tablet PO 06/11/24 07:59
DAILY BIBI
Rosuvastatin Calcium 40 mg 05/13/24 22:00 05/13/24 20:53
Rosuvastatin (Crestor) 40 Mg Tablet PO 06/10/24 21:59 40 mg
HS BIBI Administration
Senna/Docusate Sodium 1 tablet 05/13/24 15:36
Docusate W/Senna (Meseret-Colace) Tablet PO 06/10/24 15:35
BIDPRN PRN
constipation
Sodium Chloride 0 flush 05/13/24 14:00
Sodium Chloride 0.9% (Flush) Syringe IV 06/10/24 13:59
PER PROTOCOL BIBI
Review of Systems
-
History Source: Patient
All Other Systems: Reviewed and Negative
Constitutional: Reports Weight Gain; Denies Fever, Fatigue, Night Sweats or Chills
EENT: Reports No Symptoms
Respiratory: Reports Cough and Trouble Breathing; Denies Wheezing or Pleurisy
Cardiac: Denies Chest Pain, Diaphoresis, Palpitations or Syncope
GI: Denies Abdominal Pain, Nausea, Vomiting, Diarrhea or Constipated
Breast: Reports N/A
: Reports No Symptoms
Musculoskeletal: Reports Edema
Skin: Reports No Symptoms
Neuro: Reports No Symptoms
Endocrine: Reports No Symptoms
Hematologic/Lymphatic: Denies Swollen Glands, Bruising or Lymphedema
Physical Exam
-
General: Well Developed, Well Nourished, No Apparent Distress and Comfortable
HEENT: Moist Mucous Membranes; Negative Jaundice
Cardiology: S1, S2, Irregular Rate/Rhythm and No Murmur
Pulmonary: Rales; Negative Clear, Wheezes or Rhonchi
GI: Soft and Normal Bowel Sounds
Musculoskeletal: No Clubbing, No Cyanosis, Edema. Left Upper Extrem, Edema, Right Lower Extrem and Edema, Left Lower Extrem
Neurology: Non Focal
Skin: Warm, Dry and IV Access / Catheter Site
Hematologic / Lymphatic: No Petechiae
Psych: Other (Forgetful)
Labs
Lab Results
WBC 14.0 10^3/uL (4.8-10.8) H 05/13/24 07:16
RBC 4.11 10^6/uL (4.70-6.10) L 05/13/24 07:16
Hgb 10.2 g/dL (13.0-18.0) L 05/13/24 07:16
Hct 33.7 % (39.0-52.0) L 05/13/24 07:16
MCV 82.0 fL (80.0-94.0) 05/13/24 07:16
MCH 24.8 pg (27.0-31.0) L 05/13/24 07:16
MCHC 30.3 g/dL (33.0-37.0) L 05/13/24 07:16
RDW 17.7 % (11.5-14.5) H 05/13/24 07:16
Plt Count 207 10^3/uL (130-400) 05/13/24 07:16
MPV 10.1 fL (7.4-10.4) 05/13/24 07:16
Abs Immat Gran (auto) 0.1 10^3/uL (0-0.05) H 05/13/24 07:16
Absolute Neuts (auto) 8.5 10^3/uL (1.4-6.5) H 05/13/24 07:16
Absolute Lymphs (auto) 4.5 10^3/uL (1.2-3.4) H 05/13/24 07:16
Absolute Monos (auto) 0.9 10^3/uL (0.1-0.6) H 05/13/24 07:16
Absolute Eos (auto) 0.1 10^3/uL (0-0.7) 05/13/24 07:16
Absolute Basos (auto) 0.0 10^3/uL (0-0.2) 05/13/24 07:16
Immature Gran % 0.6 % (0-0.5) H 05/13/24 07:16
Neutrophils % 60.3 % (42.2-75.2) 05/13/24 07:16
Lymphocytes % 32.2 % (20.5-51.1) 05/13/24 07:16
Monocytes % 6.1 % (1.7-9.3) 05/13/24 07:16
Eosinophils % 0.5 % (0-6) 05/13/24 07:16
Basophils % 0.3 % (0-2) 05/13/24 07:16
Creatinine 0.7 mg/dL (0.7-1.3) 05/13/24 07:16
Vital Signs
Vital Signs
Temp Pulse Resp BP Pulse Ox
98.1 F 89 22 94/59 95
05/14/24 08:06 05/14/24 08:06 05/14/24 08:06 05/14/24 08:06 05/14/24 08:06
[2024-05-14 09:30] LABS: Hematocrit 30.5 % (39.0-52.0); Mean Corp Hgb Conc. 29.5 g/dL (33.0-37.0); Mean Corpuscular Hgb 24.3 pg (27.0-31.0); Mean Corpuscular Volume 82.4 fL (80.0-94.0); Platelet Count 201 10^3/uL (130-400); Red Cell Dist. Width 17.7 % (11.5-14.5); White Blood Cell Count 10.1 10^3/uL (4.8-10.8)
[2024-05-14] MEDS: TOPROL XL 12.5 MG PO (09:46)
[2024-05-14 10:33] LABS: Blood Urea Nitrogen 17 mg/dl (9-20); Calcium 8.1 mg/dl (8.4-10.2); Carbon Dioxide 30 mmol/L (22-30); Chloride 103 mmol/L (98-107); Estimated Creatinine Clearance 77 ml/min; Glucose 84 mg/dl (70-99); Magnesium 2.1 mg/dl (1.6-2.3); Potassium 4.3 mmol/L (3.5-5.1); Sodium 139 mmol/L (135-145); eGFR > 60.00
[2024-05-14] MEDS: LASIX 80 MG IV (11:34)
--- NOTE | 2024-05-14 11:44 | W.PN.CARDCBS ---
Addendum entered and electronically signed by Carl Duggan MD 05/14/24 15:26:
I saw and examined the patient.
The Bridge Rigger's note was reviewed and I agree with the note.
Comment:
GEN: No distress, awake, Ox3
HEENT: supple, anicteric, mmm
LUNGS: dec Bs at base
CV: Reg, S1/S2, 02/24 syst LSB, no gallop
ABD: soft, BS+, NT/ND
EXT: No edema
NEURO: Gross non-focal
SKIN: No rash
Plan:
Feels better after thoracentesis. Would consider pulmonary evaluation to help manage continued pleural effusions.
Continue IV Lasix. Would switch to oral torsemide as an outpatient. Weight is overall down to 192.
Continue Toprol.
Echo does have some RV dysfunction.
Original Note:
Today's Communication / Plan
-
continue IV lasix
thora fluid exudative
consider pulm consult
toprol 12.5mg daily
Impression / Plan
-
Primary Faculty Support Coordinator: Dr. Mcclain
Assessment:
Presentation with SOB
Recurrent, symptomatic pleural effusions with thoracenteses approximately once per week (dose of Brukinsa had been decreased in past as felt to be contributing to effusions)
s/p thoracenteses 12/15/2022, 02/26/2023, 04/09/2023, 04/30/2023, 06/01/2023, 07/03/2023, 07/27/2023, 08/16/2023, 09/12/2023, 10/05/2023, 11/02/2023, 11/23/2023, 12/19/2023, 01/04/2024, 01/31/2024, 02/11/2024, 02/25/2024, 03/05/2024, 03/14/2024, 03/24/2024,
04/01/2024, 04/09/2024, 04/23/2024, 04/30/2024, 05/06/2024, 05/13/24
Acute on chronic HFpEF
Leukocytosis
CLL on Brukinsa since 01/2023 and more recently Cristina followed by [facility]
PACs
Paroxysmal, rapid atrial tachycardia
hypertension
hyperlipidemia
history of stroke in 10/2019
GERD
Hypoalbuminemia, mild
Chronic anemia
ECHO 12/07/22: EF 60 to 65%, technically difficult study, no significant valvular pathology, trivial pericardial effusion, pleural effusion noted, IVC dilated and does not collapse
ECHO 05/13/24: EF 60 to 65%, mild concentric LVH, aortic sclerosis, trace AR, top normal size, pleural effusion, enlarged RV size with reduced RV systolic function
Plan:
-He has had 26 thoracenteses in the last year and a half, most recent was 05/13/2024
-by light's criteria, fluid from tap 05/13 is exudative.
-patient's had told me yesterday that there had been concern in past that pleural fluid was secondary to brukinsa and his dose was decreased. she also relayed that there were previously malignant cells in pleural fluid.
-echo with normal EF. suspect component of acute CHF however likely multifactorial as do not feel his degree of CHF should necessitate weekly thoracenteses
-patient very agitated today and wants to leave. we discussed he is not ready for discharge at this time and if he would leave it would be AMA.
-I discussed pulmonary evaluation for pleurx catheter. he states he does not want a pleurx and that he is fine coming in for a tap once a week. we discussed that his need for taps will likely increase over time and this may impact his quality of
life. per discussion with yesterday he also previously declined palliative care. he has poor insight into his illnesses and their severity. he is a DNR. prognosis appears poor
-continue IV lasix. was on po lasix 80mg daily as OP, consider transition to torsemide upon DC
-noted to be in SR with PACs and brief runs of rapid atach and SVT on review of tele in ER. no clear atrial fibrillation and not sustained. patient asymptomatic. continue toprol 12.5mg daily.
-d/w nursing, hospitalist.
Progress Note - Faculty Support Coordinator
Subjective
Date of Service: May 14, 2024
angry. wants to leave. no SOB
Objective
Labs:
05/14/24 07:24
05/14/24 07:24
Labs
Hgb 9.0 g/dL (13.0-18.0) L 05/14/24 07:24
Hct 30.5 % (39.0-52.0) L 05/14/24 07:24
Plt Count 201 10^3/uL (130-400) 05/14/24 07:24
Sodium 139 mmol/L (135-145) 05/14/24 07:24
Potassium 4.3 mmol/L (3.5-5.1) 05/14/24 07:24
BUN 17 mg/dl (9-20) 05/14/24 07:24
Creatinine 0.8 mg/dL (0.7-1.3) 05/14/24 07:24
Glucose 84 mg/dl (70-99) 05/14/24 07:24
Vital Signs and I&O:
Vital Signs
Temp Pulse Resp BP Pulse Ox
98.1 F 77 22 97/68 95
05/14/24 08:06 05/14/24 09:46 05/14/24 08:06 05/14/24 09:46 05/14/24 08:06
Vital Signs
Temp Pulse Resp BP Pulse Ox
98.1 F 77 22 97/68 95
05/14/24 08:06 05/14/24 09:46 05/14/24 08:06 05/14/24 09:46 05/14/24 08:06
Intake & Output
05/12/24 05/13/24 05/14/24 05/15/24
07:59 07:59 07:59 07:59
Intake Total 240 / 240
Balance 240 / 240
Physical Exam
Physical Exam
GEN: No distress, awake, alert, oriented x3. sitting in chair
HEENT: supple, anicteric, mmm, eomi
LUNGS: Crackles LLB, no wheezes
CV: Reg, S1/S2, no murmur
ABD: soft, BS+, NT/ND
EXT: No cyanosis, clubbing. 1+ edema of B/L LE
NEURO: Gross non-focal
SKIN: Warm, pink, dry. No rash
--- NOTE | 2024-05-14 11:49 | W.PN.HOSP.TC ---
Today's Communication/Plan
-
continue IV Lasix
continue rate control with Toprol XL
Assessment / Plan
Assessment / Plan
Assessment:
Acute on chronic HFpEF
- continue IV Lasix - requires intensive monitoring of I/Os, weights, lytes
- Echo: Normal left ventricular chamber size. Normal left ventricular systolic function. Left ventricular ejection fraction is 60-65%. Normal regional wall motion. Mild concentric left ventricular hypertrophy. Diastolic function normal. Aortic valve
opens normally. Aortic sclerosis without stenosis. Trace aortic regurgitation is seen. Top normal aorta size. Ao Sinus Diameter 3.7 m. Pleural effusion present. Enlarged right ventricular size. Reduced right ventricular systolic function. Since
echo November 2022, right ventricle is dilated and hypokinetic.
- [facility] Cards following
- salt and fluid restrictions
Bilateral pleural effusions
Recurrent, symptomatic pleural effusions with thoracenteses approximately once per week (dose of Brukinsa had been decreased in past as felt to be contributing to effusions)
- s/p L thoracentesis 05/13: 1500 cc removed. fluid labs suggestive of transudative process
- discussed PleurX placement as nearly 25 procedures for thoracentesis in last 18 months. Patient refusing on account of higher risk of infection concern as discussed previously with his treating doctors at [facility]
Leukocytosis
CLL on Brukinsa since 01/2023 and more recently Cristina followed by [facility]
- Onc following; reporting 'relatively good prognosis as patient does not have significant familia disease or hematologic involvement from his CLL'
- Follow up with [facility] in May
PACs
Paroxysmal, rapid atrial tachycardia
- continue Toprol XL
Essential hypertension
hyperlipidemia
- statin
history of stroke in 10/2019
- continue ASA
GERD
Hypoalbuminemia, mild
Chronic anemia
DVT ppx: Lovenox
Code: Full
Anticipated Discharge: > 48 hours
Subjective/Interval History
-
Date of Service: May 14, 2024
denies any SOB
refuses PleurX placement; states his prior doctors recommended against it due to infection risk
Objective Data
-
Labs:
Laboratory Results
05/14/24
07:24
WBC 10.1
Hgb 9.0 L
Hct 30.5 L
Plt Count 201
Sodium 139
Potassium 4.3
Chloride 103
Carbon Dioxide 30
BUN 17
Creatinine 0.8
Glucose 84
Calcium 8.1 L
Vital Signs:
Vital Signs
Temp Pulse Resp BP Pulse Ox
98.1 F 77 22 97/68 95
05/14/24 08:06 05/14/24 09:46 05/14/24 08:06 05/14/24 09:46 05/14/24 08:06
I&O
05/13/24 05/14/24 05/15/24
06:59 06:59 06:59
Intake Total 240 / 240
Balance 240 / 240
Physical Exam
-
General: No Apparent Distress
HEENT: Normocephalic and Atraumatic
Respiratory: Crackles and Decreased Breath Sounds
Cardiac: Irregular Rhythm and Tachycardic
GI: Soft
Genito-urinary: No Costovertebral Tender
Neuro: AO x 3
Psych: Calm
Data Reviewed
-
Total Time Spent with Patient (in minutes): 51
Labs: Labs Reviewed by me
--- NOTE | 2024-05-14 16:43 | CON.PUL ---
Consultation
Consultation Request
Date/Time Consultation Requested: 05/14/2024
Date/Time Consultation Performed: 05/14/2024
Requesting Provider:
Performing Provider: Dr. Aaron Jaeger
Reason for Consultation: Recurrent pleural effusion
Medical History
-
History of Present Illness:
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
October 2019 presented to [facility] complaining of shortness of breath and edema.
Symptoms worsen for about a week but his weight has been increasing over a month apparently.
He is up 25 pounds compared to prior.
Evaluation showed a chest x-ray with bilateral pleural effusion, elevated proBNP.
He was admitted for IV diuresis
We were consulted on 05/14/2024 for evaluation of pleural effusions.
He is known to me from the outpatient office, last time seen in our office 04/29/2024
Evaluation in the past including flow cytometry showed monoclonal spike of cell consistent with his history of lymphoma/CLL.
Otherwise negative, negative liver function, no proteinuria, no central airway obstruction, no other malignancy on cytology.
Past Medical History
Past Medical History: Other (See assessment and plan)
Social History
Tobacco: Non-smoker
Alcohol: None
Drug: None
Family History
Family History: Reviewed & Not Pertinent
Allergies / Home Medications
Allergies
Allergy/AdvReac Type Severity Reaction Status Date / Time
No Known Allergies Allergy Verified 04/23/24 09:37
Home Medications
�Medication �Instructions �Recorded �Confirmed �Last Taken �Type
fluticasone propionate 50 1 spray intranasal BIDPRN PRN 12/07/22 05/13/24 05/06/24 History
mcg/actuation nasal allergies
spray,suspension
latanoprost 0.005 % eye drops 1 drp LEFT EYE HS Eye Condition 10/19/23 03/25/25 03/24/25 History
rosuvastatin 40 mg tablet (Crestor) 40 mg PO HS High Cholesterol 12/07/22 05/13/24 05/12/24 History
cyanocobalamin (vitamin B-12) 1,000 mcg PO DAILY Supplement 12/14/22 05/13/24 05/12/24 History
1,000 mcg tablet (Vitamin B-12)
famotidine 20 mg tablet 20 mg PO DAILY Gastrointestinal 12/14/22 05/13/24 05/12/24 History
Issue
furosemide 40 mg tablet 80 mg PO DAILY Fluid 12/14/22 05/13/24 05/12/24 History
Retention/Swelling
zanubrutinib 80 mg capsule 160 mg PO BID Cancer 02/26/23 05/13/24 05/13/24 History
(Brukinsa)
acyclovir 400 mg tablet 400 mg PO Q12H Infection 04/09/24 05/13/24 05/13/24 History
Beet Root Gummy 1 gummy PO DAILY 05/13/24 05/13/24 05/12/24 History
Immune Retore 1 cap PO DAILY 05/13/24 05/13/24 05/12/24 History
aspirin 81 mg tablet,delayed 81 mg PO DAILY Blood Clot 05/13/24 05/13/24 05/12/24 History
release Prevention/Tx
dextromethorphan-guaifenesin 30 2 tab PO DAILYPRN PRN COUGH 05/13/24 05/13/24 Unknown History
mg-600 mg tablet extended
hr (Mucinex DM)
stagowts-msmvltrs-taq C 250 1 tab PO DAILY Supplement 05/13/24 05/13/24 05/12/24 History
mg-herbal no.124 11.66 mg
chewable tablet (Airborne Gummy)
obinutuzumab 1,000 mg/40 mL 1,000 mg IV QMONTH Cancer 05/13/24 05/13/24 05/08/24 History
intravenous solution
potassium chloride 20 mEq 40 meq PO DAILY Supplement 05/13/24 05/13/24 05/12/24 History
tablet,extended release
therapeutic multivitamin 1 tab PO DAILY Supplement 05/13/24 05/13/24 05/12/24 History
Review of Systems
-
History Source: Patient
All other systems: Negative unless noted
Vitals / Labs / Diagnostic Testing
Vital Signs
Temp Pulse Resp BP Pulse Ox
98.1 F 82 16 96/60 96
05/14/24 15:12 05/14/24 15:12 05/14/24 15:12 05/14/24 15:12 05/14/24 15:12
Lab Data
05/14/24 07:24
05/14/24 07:24
Microbiology
05/13/24 10:45 Pleural Fluid Fungal Smear - Final
No yeast or fungal elements seen.
05/13/24 10:45 Pleural Fluid Fungal Culture - Preliminary
Culture in progress.
Positive cultures are reported as soon as detected.
Final report to follow in four to five weeks.
05/13/24 10:45 Pleural Fluid Body Fluid Culture - Preliminary
No Growth After 18-24 Hours
05/13/24 10:45 Pleural Fluid Gram Stain - Preliminary
Diagnostic Testing:
Physical Exam
-
HEENT: Normocephalic
Cardiovascular: S1/S2
Respiratory: Non-Labored Respirations
GI: Soft and Non Distended
Neurology: Awake, Alert, AO x 3 and No Motor Deficits
Skin: Warm and Other (Anasarca)
General: Comfortable
Assessment
-
78-year-old man known to my office for recurrent pleural effusions. Since 2022 has been having recurrent bilateral pleural effusions. More recently in question the reaccumulation on the left. Also reaccumulation in the right but more slowly. In
the past flow cytometry with monoclonal population of lymphocytes consistent with lymphoproliferative disorder. Readmitted with shortness of breath and anasarca. We were consulted for evaluation of recurrent pleural effusions.
Bilateral recurrent pleural effusion status post left thoracentesis-over 25 thoracentesis in the last 2 years.
Based on [facility] records patient in the past decline intrapleural catheter.
1500 cc of clear yellow pleural fluid
pH 7.45/white blood cells 225/61% mononuclear/38% polymorphs/125 glucose/total protein less than 2/LDH 132/fluid amylase less than 30/triglycerides less than 30.
Cytology: Few reactive mesothelial cells. Numerous macrophages present. Mixed inflammatory cells.
Last right thoracentesis 04/23/2024:
Cytology on the right 03/05/2024: Lymphocytes present. No evidence for malignancy. 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
Acute on chronic heart failure with preserved ejection fraction.
Elevated proBNP 1470
Conditions present prior admission:
History of CLL
Hypertension
Hyperlipidemia
Prior history of CVA-residual slurred speech from a stroke.
Recurrent pleural effusion
Atrial fibrillation
Chronic anemia
Assessment and plan:
Recurrent bilateral pleural effusions thought to be related to underlying lymphoproliferative disorder based on flow cytometry, also possibly cardiac etiology.
-
No other etiology has been found in the past: Normal liver, no proteinuria, cytology negative for other type of malignancy, in 2022 echocardiogram was normal as well.
With thought that chemotherapeutic -CLL on [facility] since 01/2023 and more recently [facility] followed by [place] [facility].
Echocardiogram 05/13/2024: Normal LVEF. Normal regional wall motion. Mild LVH enlarged right ventricular size. Reduced right ventricular size and function.(RV dysfunction is new compared to 2022)
-
Unfortunately for the last year or so reaccumulation has been rapid. More recently undergoing thoracentesis almost weekly.
12/15/2022, 02/26/2023, 04/09/2023, 04/30/2023, 06/01/2023, 07/03/2023, 07/27/2023, 08/16/2023, 09/12/2023, 10/05/2023, 11/02/2023, 11/23/2023, 12/19/2023, 01/04/2024, 01/31/2024, 02/11/2024, 02/25/2024, 03/05/2024, 03/14/2024, 03/24/2024, 04/01/2024, 04/09/2024,
04/23/2024, 04/30/2024, 05/06/2024, 05/13/24.
-
Improved after left thoracentesis this admission.
-
In the outpatient setting intrapleural catheter has been discussed and he has declined. Now it is evident that unfortunately thoracentesis can be performed on a weekly basis.
He has declined palliative care.
Currently he is DNR.
-
It has been discussed with him in the outpatient setting in the past regarding more aggressive intervention such as VATS pleurodesis versus intrapleural catheter. He has declined based on [facility] records and my recollection.
-
Now he has mild hypoproteinemia that may be contributing. In the past his albumin was normal.
-
Continue with diuresis for now.
It is uncertain why patient has RV dysfunction which is new compared to 2022.
Lower extremity Dopplers 04/21/2024: No evidence for deep venous thrombosis on the left upper extremity.
Will obtain lower extremity Dopplers to start.
May need to obtain CT angiogram to evaluate for pulmonary embolism.
Continue DVT prophylaxis for now.
-
I have offered him to arrange for intrapleural catheter. He is more agreeable and would like to think about it. Would recommend to place it on left as right side appears loculated. I will discuss with him in AM.
-
Will follow
--- NOTE | 2024-05-14 16:53 | CM ---
Attempted to meet with patient to obtain information for assessment, however he stated to defer to his as he has had difficulty communicating since his stroke. Placed a call to patient's . She stated that patient lives with her in a
bilevel single home with one step to enter and a full flight to get to the upstairs. Patient's stated that she assists patient with all of his personal care, ADLs, bathing and dressing. She does all the oleo hasher and renderer, cooing, cleaning and
laundry. She stated that patient is very difficult to interact with and often gets hostile verbally. She stated that she would like to explore whether hospice is an option as per his , patient has not had any quality of life.
Patient has a prescription plan and uses, [facility] [place].
Patient's PCP is Aleksey Torres.
Will update attending that patient's was asking about hospice and if that is appropriate as she feels that patient is tired and she is not sure that he will get better.
Plan: Case management will continue to follow and assist with discharge planning. Will explore options as stated that she feels patient is at end of life. Will contact attending.
[2024-05-14] MEDS: LOVENOX 40 MG SC (17:24)
--- NOTE | 2024-05-14 18:09 | PTCARENOTE ---
at 0832, patient's b/p 94/59, HR spiking to 140's to 160's (afib)while sitting at rest then will go down to 80's spontaneously. asymptomatic. Dr. Argueta notified via tiger text as patient due to get Lasix 80mgs IV and Toprol to be held per
parameters. Dr. Argueta wanted to wait to give Lasix. at 0836 ordering EKG and EKG results 0845 were NSR with PACS and PVCS. at 0908 b/p 97/68 and HR 77. at 0911 communicating with Gillian LYNCH and she is changing Toprol parameters and Toprol to
be given. at 11:07 b/p 103/64 and HR 80. Lasix to be given. at 11:28 after PT and OT, b/p 116/80 and HR 78. placed on Room air during therapy session with sao2 92%, will continue to monitor.
[2024-05-14] MEDS: CRESTOR 40 MG PO (21:16)
[2024-05-14] MEDS: XALATAN OPHTHALMIC SOLUTION 1 DROP LEFT EYE (21:16)
[2024-05-15 03:00] VITALS: BP 114/75
--- NOTE | 2024-05-15 04:37 | PTCARENOTE ---
Pt appeared agitated this morning. Per PCT, pt awake, OOB and unsteady. Attempted to educate patient re: fall risk and O2 needs and patient reports 'I just woke up and I want to be left alone.' This RN instructed patient to call for assistance
with ambulating, and patient replied 'I can walk out of here if I wanted to.' Per dayshift RN report, pt had verbalized possibly leaving AMA. Discussed with dry charge process attendant and TALLIER made aware. Pt remains alert and oriented. Per patient report, he went
to that bathroom and had about 3 small urine output. Re-educated patient to call RN prior to voiding or use urinal to properly document I/Os.
--- NOTE | 2024-05-15 04:55 | PTCARENOTE ---
Hygiene was not performed on patient because they refused.
[2024-05-15 06:00] VITALS: BMI 27.0
[2024-05-15 06:49] LABS: Blood Urea Nitrogen 20 mg/dl (9-20); Calcium 8.3 mg/dl (8.4-10.2); Carbon Dioxide 32 mmol/L (22-30); Chloride 101 mmol/L (98-107); Estimated Creatinine Clearance 77 ml/min; Glucose 110 mg/dl (70-99); Potassium 4.2 mmol/L (3.5-5.1); Sodium 139 mmol/L (135-145); eGFR > 60.00
[2024-05-15 06:50] LABS: Hematocrit 30.7 % (39.0-52.0); Hemoglobin 9.3 g/dL (13.0-18.0); Mean Corp Hgb Conc. 30.3 g/dL (33.0-37.0); Mean Corpuscular Hgb 24.7 pg (27.0-31.0); Mean Corpuscular Volume 81.4 fL (80.0-94.0); Mean Platelet Volume 10.5 fL (7.4-10.4); Platelet Count 208 10^3/uL (130-400); Red Blood Cell Count 3.77 10^6/uL (4.70-6.10); Red Cell Dist. Width 17.6 % (11.5-14.5); White Blood Cell Count 10.3 10^3/uL (4.8-10.8)
[2024-05-15 07:31] VITALS: BP 127/75
[2024-05-15] MEDS: ASPIR LOW (ENTERIC COATED) 81 MG PO (08:10)
[2024-05-15] MEDS: KCL 40 MEQ PO (08:11)
[2024-05-15] MEDS: PEPCID 20 MG PO (08:12)
[2024-05-15] MEDS: TOPROL XL 12.5 MG PO (08:13)
[2024-05-15] MEDS: THERAGRAN 1 TABLET PO (08:13)
[2024-05-15] MEDS: VITAMIN B-12 1000 MCG PO (08:14)
[2024-05-15] MEDS: NON-FORMULARY ITEM 160 MG PO ×2 (08:15→21:26)
[2024-05-15] MEDS: ZOVIRAX 400 MG PO ×2 (08:16→21:25)
[2024-05-15] MEDS: LASIX 80 MG IV (08:17)
--- NOTE | 2024-05-15 09:39 | W.PN.HOSP.TC ---
Today's Communication/Plan
-
IRAD consult for intrapleural catheter
follow pulm recs
follow Cards recs; continue IV Lasix. Likely Torsemide at dc
Assessment / Plan
Assessment / Plan
Assessment:
Acute on chronic HFpEF
- continue IV Lasix - requires intensive monitoring of I/Os, weights, lytes
- Echo: Normal left ventricular chamber size. Normal left ventricular systolic function. Left ventricular ejection fraction is 60-65%. Normal regional wall motion. Mild concentric left ventricular hypertrophy. Diastolic function normal. Aortic valve
opens normally. Aortic sclerosis without stenosis. Trace aortic regurgitation is seen. Top normal aorta size. Ao Sinus Diameter 3.7 m. Pleural effusion present. Enlarged right ventricular size. Reduced right ventricular systolic function. Since
echo November 2022, right ventricle is dilated and hypokinetic.
- [facility] Cards following
- salt and fluid restrictions
Bilateral pleural effusions
Recurrent, symptomatic pleural effusions with thoracenteses approximately once per week (dose of Brukinsa had been decreased in past as felt to be contributing to effusions)
- s/p L thoracentesis 05/13: 1500 cc removed. fluid labs suggestive of transudative process
- discussed PleurX placement as nearly 25 procedures for thoracentesis in last 18 months. Patient refusing on account of higher risk of infection concern as discussed previously with his treating doctors at [facility]; but now agreeable after
re-evaluation and discussion with Pulmonary. IRAD consulted.
Leukocytosis
CLL on Brukinsa since 01/2023 and more recently Gazyva followed by [place] [facility]
- Onc following; reporting 'relatively good prognosis as patient does not have significant familia disease or hematologic involvement from his CLL'
- Follow up with [facility] in May
PACs
Paroxysmal, rapid atrial tachycardia
- continue Toprol XL
Essential hypertension
hyperlipidemia
- statin
history of stroke in 10/2019
- continue ASA
GERD
Hypoalbuminemia, mild
Chronic anemia
DVT ppx: Lovenox
Code: Full
Anticipated Discharge: 24 - 48 hours
Subjective/Interval History
-
Date of Service: May 15, 2024
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
weight down to 85kg
now agreeable to intrapleural catheter.
Objective Data
-
Labs:
Laboratory Results
05/15/24
06:15
WBC 10.3
Hgb 9.3 L
Hct 30.7 L
Plt Count 208
Sodium 139
Potassium 4.2
Chloride 101
Carbon Dioxide 32 H
BUN 20
Creatinine 0.8
Glucose 110 H
Calcium 8.3 L
Vital Signs:
Vital Signs
Temp Pulse Resp BP Pulse Ox
98.0 F 80 18 127/75 94
05/15/24 07:31 05/15/24 08:17 05/15/24 07:31 05/15/24 08:17 05/15/24 07:31
I&O
05/14/24 05/15/24 05/16/24
06:59 06:59 06:59
Intake Total 240 / 240 1470 / 1470
Output Total 900 / 900
Balance 240 / 240 570 / 570
Physical Exam
-
General: No Apparent Distress
HEENT: Normocephalic and Atraumatic
Respiratory: Decreased Breath Sounds; Negative Wheezes
Cardiac: Regular Rhythm and S1/S2
GI: Soft and Nontender
Neuro: AO x 3
Psych: Calm
Data Reviewed
-
Total Time Spent with Patient (in minutes): 51
Labs: Labs Reviewed by me
--- NOTE | 2024-05-15 09:42 | W.PN.CARDCBS ---
Today's Communication / Plan
-
On discharge will start torsemide 20 mg daily (likely tomorrow)
We will arrange an outpatient office visit and BMP/proBNP in 1 week
Defer Pleurx catheter to primary service and pulmonary.
Impression / Plan
-
Primary Service Captain: Dr. Mcclain
Assessment:
Presentation with SOB
Recurrent, symptomatic pleural effusions with thoracenteses approximately once per week (dose of Brukinsa had been decreased in past as felt to be contributing to effusions)
s/p thoracenteses 12/15/2022, 02/26/2023, 04/09/2023, 04/30/2023, 06/01/2023, 07/03/2023, 07/27/2023, 08/16/2023, 09/12/2023, 10/05/2023, 11/02/2023, 11/23/2023, 12/19/2023, 01/04/2024, 01/31/2024, 02/11/2024, 02/25/2024, 03/05/2024, 03/14/2024, 03/24/2024,
04/01/2024, 04/09/2024, 04/23/2024, 04/30/2024, 05/06/2024, 05/13/24
Acute on chronic HFpEF
Leukocytosis
CLL on Brukinsa since 01/2023 and more recently [place] followed by [place] [facility]
PACs
Paroxysmal, rapid atrial tachycardia
hypertension
hyperlipidemia
history of stroke in 10/2019
GERD
Hypoalbuminemia, mild
Chronic anemia
ECHO 12/07/22: EF 60 to 65%, technically difficult study, no significant valvular pathology, trivial pericardial effusion, pleural effusion noted, IVC dilated and does not collapse
ECHO 05/13/24: EF 60 to 65%, mild concentric LVH, aortic sclerosis, trace AR, top normal size, pleural effusion, enlarged RV size with reduced RV systolic function
Plan:
Acute on chronic heart failure with preserved ejection fraction in the setting of mild right ventricular dysfunction, CLL (positive cells in pleural fluid prior) and volume overload. I visually reviewed both echo as noted above and feel that there
was limited views of the right ventricle 11/2022 and likely the suggestion of right ventricular dysfunction at that time also. It is possible that right ventricular dysfunction is multifactorial and may be in part related to recurrent pleural
effusions and increased volume.
-He has had 26 thoracenteses in the last year and a half, most recent was 05/13/2024
-by light's criteria, fluid from tap 05/13 is exudative.
-Given heart failure with preserved ejection fraction discussed with the patient and his at great length diuretic treatment. Will start torsemide 20 mg daily on discharge in place of IV Lasix with close follow-up in the office. We will
arrange an outpatient office visit and BMP/proBNP in 1 week. They know to call if he gains 3 pounds in 1 day or 5 pounds in 1 week.
-It is possible in addition that Brukinsa is contributing to increased volume that patient has however unclear if contributing to pleural effusions.
-Echo with normal EF. Mild right ventricular dysfunction. No significant valve disease.
-He was seen by pulmonary and plan for pleurx catheter. He is agreeable to that currently. W
-As noted in prior notes during this admission discussion with in which he previously declined palliative care. He has poor insight into his illnesses and their severity. He is a DNR. Overall prognosis appears poor given multiple medical
problems.
-Telemetry reviewed noted to be in SR with PACs and brief runs of rapid atach and SVT on review of tele in ER. No o clear atrial fibrillation and not sustained. Continue toprol 12.5mg daily.
-d/w hospitalist. Discussed planning with the patient and his at great length. Discussed pathophysiology of heart failure in addition.
Progress Note - Service Captain
Subjective
Date of Service: May 15, 2024
He feels that his breathing is better overall and his edema has improved but still present. His is at the bedside.
Objective
Labs:
05/15/24 06:15
05/15/24 06:15
Labs
Hgb 9.3 g/dL (13.0-18.0) L 05/15/24 06:15
Hct 30.7 % (39.0-52.0) L 05/15/24 06:15
Plt Count 208 10^3/uL (130-400) 05/15/24 06:15
Sodium 139 mmol/L (135-145) 05/15/24 06:15
Potassium 4.2 mmol/L (3.5-5.1) 05/15/24 06:15
BUN 20 mg/dl (9-20) 05/15/24 06:15
Creatinine 0.8 mg/dL (0.7-1.3) 05/15/24 06:15
Glucose 110 mg/dl (70-99) H 05/15/24 06:15
Vital Signs and I&O:
Vital Signs
Temp Pulse Resp BP Pulse Ox
98.0 F 80 18 127/75 94
05/15/24 07:31 05/15/24 08:17 05/15/24 07:31 05/15/24 08:17 05/15/24 07:31
Vital Signs
Temp Pulse Resp BP Pulse Ox
98.0 F 80 18 127/75 94
05/15/24 07:31 05/15/24 08:17 05/15/24 07:31 05/15/24 08:17 05/15/24 07:31
Intake & Output
05/13/24 05/14/24 05/15/24 05/16/24
06:59 06:59 06:59 06:59
Intake Total 240 / 240 1470 / 1470
Output Total 900 / 900
Balance 240 / 240 570 / 570
Physical Exam
Physical Exam
General: Well developed, well nourished in NAD.
Heart: Distant heart sounds regular
Lungs: Decreased breath sounds at the bases bilateral.
Extremities: No clubbing, cyanosis +1 edema bilaterally.
Neuro: Awake and answers questions
--- NOTE | 2024-05-15 09:50 | W.PN.ONC2 ---
Today's Communication / Plan
-
Discussion with pulm/IRAD for Pleurex catheter placement. Has follow up with [facility] May 26 to discuss further medication adjustment in lieu of continuing pleural effusions with evidence of CLL involvement.
Impression
Impression
78 year old male
CLL
Recurrent BL Pleural Effusions
HFpEF
Plan
Plan
- Leukocytosis has resolved, remains afebrile
- Seen by pulm, will discuss Pleurex catheter placement.
- Plan to switch to Torsemide on d/c as he continued to have edema/pleural effusions despite po Lasix
- Flow cytometry on fluid analysis from 03/15/24 demonstrating 18% monoclonal B-cells with CD5 and partial CD23 compatible with CLL. Fluid analysis from 05/13/24 overall is exudative by Light's criteria; cytology showing few reactive mesothelial
cells, numerous macrophages and mixed inflammatory cells. No Flow was done.
- Currently on Brukinsa and Gazyva for CLL. He has follow up with [facility] scheduled in May.
- Given stable cell counts, lack of constitutional symptoms and PET scan imaging from 03/19, these recurrent pleural effusions seem less likely to be due to CLL progression, though there is likely some contribution to his overall presentation.
Subjective/Objective
Chief Complaint
Recurrent Pleural Effusions
CLL
Subjective
Feeling better today, swelling has improved. Still feeling a bit short of breath but O2 sats are >92. No new fevers, chills. No other acute complaints at this time.
Vital Signs:
Vital Signs
Temp Pulse Resp BP Pulse Ox
98.0 F 80 18 127/75 94
05/15/24 07:31 05/15/24 08:17 05/15/24 07:31 05/15/24 08:17 05/15/24 07:31
Lab Results:
Laboratory Data
WBC 10.3 10^3/uL (4.8-10.8) 03/27/25 06:15
Hgb 9.3 g/dL (13.0-18.0) L 05/15/24 06:15
Plt Count 208 10^3/uL (130-400) 05/15/24 06:15
eGFR > 60.00 05/15/24 06:15
Physical Exam
HEENT: Moist Mucous Membranes; No Jaundice
Cardiology: S1, S2, Irregular rate/rhythm and Other (tachycardic); No Murmur
Pulmonary: Rales (improved from yesterday, minimal); No Wheezes or Rhonchi
GI: Soft and Normal Bowel Sounds; No Distended
Extremities: Edema (BL LE edema, 1+, improved. LUE edema, 2+, worse at the wrist, improving. )
Review of Systems
Review of Systems
Constitutional: Denies Fever or Fatigue
Head: Denies Sore Throat
Respiratory: Reports Dyspnea; Denies Cough
Cardiovascular: Denies Chest Pain or Palpitations
Gastrointestinal: Denies Nausea/Vomiting or Diarrhea
Genitourinary: Denies Hematuria
Skin: Denies Rash
Neurological: Denies Headache
Hem/Lymphatic: Denies Easy Bruising or Night Sweats
--- NOTE | 2024-05-15 10:12 | W.PN.PUL3 ---
Today's Communication / Plan
-
Intrapleural catheter evaluation by interventional radiology
Wait for lower extremity Dopplers
Diuresis as able
Will follow
Assessment
-
78-year-old man known to my office for recurrent pleural effusions. Since 2022 has been having recurrent bilateral pleural effusions. More recently in question the reaccumulation on the left. Also reaccumulation in the right but more slowly. In
the past flow cytometry with monoclonal population of lymphocytes consistent with lymphoproliferative disorder. Readmitted with shortness of breath and anasarca. We were consulted for evaluation of recurrent pleural effusions.
Bilateral recurrent pleural effusion status post left thoracentesis-over 25 thoracentesis in the last 2 years.
Based on [facility] records patient in the past decline intrapleural catheter.
1500 cc of clear yellow pleural fluid
pH 7.45/white blood cells 225/61% mononuclear/38% polymorphs/125 glucose/total protein less than 2/LDH 132/fluid amylase less than 30/triglycerides less than 30.
Cytology: Few reactive mesothelial cells. Numerous macrophages present. Mixed inflammatory cells.
Last right thoracentesis 04/23/2024:
Cytology on the right 03/05/2024: Lymphocytes present. No evidence for malignancy. 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
Acute on chronic heart failure with preserved ejection fraction.
Elevated proBNP 1470
Conditions present prior admission:
History of CLL
Hypertension
Hyperlipidemia
Prior history of CVA-residual slurred speech from a stroke.
Recurrent pleural effusion
Atrial fibrillation
Chronic anemia
Assessment and plan:
Recurrent bilateral pleural effusions thought to be related to underlying lymphoproliferative disorder based on flow cytometry, also possibly cardiac etiology.
-
No other etiology has been found in the past: Normal liver, no proteinuria, cytology negative for other type of malignancy, in 2022 echocardiogram was normal as well.
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
Echocardiogram 05/13/2024: Normal LVEF. Normal regional wall motion. Mild LVH enlarged right ventricular size. Reduced right ventricular size and function.(RV dysfunction is new compared to 2022)
-
Unfortunately for the last year or so reaccumulation has been rapid. More recently undergoing thoracentesis almost weekly.
12/15/2022, 02/26/2023, 04/09/2023, 04/30/2023, 06/01/2023, 07/03/2023, 07/27/2023, 08/16/2023, 09/12/2023, 10/05/2023, 11/02/2023, 11/23/2023, 12/19/2023, 01/04/2024, 01/31/2024, 02/11/2024, 02/25/2024, 03/05/2024, 03/14/2024, 03/24/2024, 04/01/2024, 04/09/2024,
04/23/2024, 04/30/2024, 05/06/2024, 05/13/24.
-
Symptomsb improved after left thoracentesis this admission.
-
In the outpatient setting intrapleural catheter has been discussed and he has declined.
Now it is evident that unfortunately, thoracentesis can't be performed on a weekly basis.
He has declined palliative care.
Currently he is DNR.
-
It has been discussed with him in the outpatient setting in the past regarding more aggressive intervention such as VATS pleurodesis versus intrapleural catheter. He has declined based on [facility] records and my recollection.
--
Patient today 05/15/2024 more agreeable to intrapleural catheter. Interventional radiology has been contacted.
Case management aware.
He will follow-up with Dr. Jaeger.
-
Continue with diuresis for now.
-
It is uncertain why patient has RV dysfunction which is new compared to 2022.
Lower extremity Dopplers 04/21/2024: No evidence for deep venous thrombosis on the left upper extremity.
Will obtain lower extremity Dopplers to start. Pending.
Not hypotensive. Not requiring supplemental oxygen. Doubt thromboembolic disease. Will continue to monitor.
Continue DVT prophylaxis for now.
-
Will follow
Subjective Data
-
Date of Service:
Date of Service: May 15, 2024
Chief Complaint: Pulmonary Follow Up (Pleural effusion)
Subjective:
Patient denies any complaints this morning
Shortness of breath improved after thoracentesis
Denies chest pain
Review of Systems
General: Fever (n)
Cardiopulmonary: Dyspnea (n)
GI: Abdominal Pain (n)
Objective Data
Data Reviewed
Vital Signs / I&O / Oxygen:
Vital Signs
Temp Pulse Resp BP Pulse Ox
98.0 F 80 18 127/75 94
05/15/24 07:31 05/15/24 08:17 05/15/24 07:31 05/15/24 08:17 05/15/24 10:07
Intake and Output
05/14/24 05/15/24 05/16/24
06:59 06:59 06:59
Intake Total 240 / 240 1470 / 1470
Output Total 900 / 900
Balance 240 / 240 570 / 570
SaO2 94
Nasal Cannula flow liters per 2
minute
Labs/Micro/Reports
Lab Data
05/15/24 06:15
05/15/24 06:15
Microbiology
05/13/24 10:45 Pleural Fluid Fungal Smear - Final
No yeast or fungal elements seen.
05/13/24 10:45 Pleural Fluid Fungal Culture - Preliminary
Culture in progress.
Positive cultures are reported as soon as detected.
Final report to follow in four to five weeks.
05/13/24 10:45 Pleural Fluid Body Fluid Culture - Preliminary
No Growth After 18-24 Hours
05/13/24 10:45 Pleural Fluid Gram Stain - Preliminary
[2024-05-15 11:34] VITALS: BP 123/63
[2024-05-15 15:18] VITALS: BP 99/62
--- NOTE | 2024-05-15 16:32 | CM ---
Spoke with attending to relay that patient's was wondering if patient is appropriate for hospice. At this time, it does not appear to be an option. Patient doing very well in PT. Will be able to go home with VN. Will talk to patient's and
update her as to the indication when it is time for discharge.
Plan: Case management will continue to follow and assist with discharge planning. Home with VN.
[2024-05-15] MEDS: LOVENOX 40 MG SC (17:33)
[2024-05-15 19:30] VITALS: BP 99/60
[2024-05-15] MEDS: XALATAN OPHTHALMIC SOLUTION 1 DROP LEFT EYE (21:26)
[2024-05-15] MEDS: CRESTOR 40 MG PO (21:26)
[2024-05-15 23:09] VITALS: BP 101/74
[2024-05-16 03:10] VITALS: BP 108/65
[2024-05-16 06:00] VITALS: BMI 26.9
[2024-05-16 06:23] LABS: Hematocrit 30.6 % (39.0-52.0); Hemoglobin 9.1 g/dL (13.0-18.0); Mean Corp Hgb Conc. 29.7 g/dL (33.0-37.0); Mean Corpuscular Hgb 24.2 pg (27.0-31.0); Mean Corpuscular Volume 81.4 fL (80.0-94.0); Mean Platelet Volume 10.5 fL (7.4-10.4); Platelet Count 194 10^3/uL (130-400); Red Blood Cell Count 3.76 10^6/uL (4.70-6.10); Red Cell Dist. Width 17.3 % (11.5-14.5); White Blood Cell Count 9.5 10^3/uL (4.8-10.8)
[2024-05-16 06:40] LABS: Blood Urea Nitrogen 20 mg/dl (9-20); Calcium 8.1 mg/dl (8.4-10.2); Carbon Dioxide 31 mmol/L (22-30); Chloride 101 mmol/L (98-107); Estimated Creatinine Clearance 77 ml/min; Glucose 102 mg/dl (70-99); Potassium 4.3 mmol/L (3.5-5.1); Sodium 137 mmol/L (135-145); eGFR > 60.00
[2024-05-16 07:30] VITALS: BP 103/68
[2024-05-16] MEDS: KCL 40 MEQ PO (08:23)
[2024-05-16] MEDS: ASPIR LOW (ENTERIC COATED) 81 MG PO (08:23)
[2024-05-16] MEDS: PEPCID 20 MG PO (08:23)
[2024-05-16] MEDS: TOPROL XL 12.5 MG PO (08:23)
[2024-05-16] MEDS: DEMADEX 20 MG PO (08:24)
[2024-05-16] MEDS: THERAGRAN 1 TABLET PO (08:24)
[2024-05-16] MEDS: VITAMIN B-12 1000 MCG PO (08:24)
[2024-05-16] MEDS: ZOVIRAX 400 MG PO (08:25)
[2024-05-16] MEDS: NON-FORMULARY ITEM 160 MG PO (08:25)
--- NOTE | 2024-05-16 09:35 | FALL ---
Description of Fall:
Patient scheduled for CXR. Patient's states she was rushing pt to walk to the stretcher and volunteer wasn't ready for pt. Pt fell on the floor. Patient denies hitting his head. states 'he is fine he didn't hit his head'. No injuries noted
at this time. Dr. Argueta notified.
Injuries Noted:
No injuries noted at this time.
Name of Provider Notified:
Dr. Argueta
--- NOTE | 2024-05-16 10:20 | CM ---
Spoke with attending who stated that patient may be discharged today. Spoke with patient's who stated that she gets off of work at 14:00. She will be able to transport home. VN referral made as per previous discussion with patient's ,
she felt that VN would be beneficial.
Plan: Case management will continue to follow and assist with discharge planning. Home with VN.
--- NOTE | 2024-05-16 10:44 | W.PN.CARDCBS ---
Addendum entered and electronically signed by Roberto Daniels MD 05/16/24 12:30:
I saw and examined the patient.
The Vp Clinical's note was reviewed and I agree with the note.
Comment: Briefly, 78-year-old man past medical history of recurrent pleural effusion and CLL presenting in acute decompensated heart failure. Patient was initial volume overloaded with significant edema and hypoxic requiring supplemental oxygen
but with thoracentesis and IV diuresis this has resolved. Appears euvolemic on exam
From my standpoint, okay to transition to oral Torsemide 20 mg daily and continue on discharge
Ongoing discussion regarding Pleurx catheter placement, sounds like this may occur as an outpatient
Requesting home O2. Will defer to pulmonary medicine.
We will sign off, please recall as needed
Outpatient follow-up has been arranged
Discussed with patient's at bedside
Original Note:
Today's Communication / Plan
-
R pleurx catheter placement prior to DC today vs as OP
po torsemide 20mg daily
BMP/proBNP in 1 week upon DC
toprol 12.5mg daily
OP cardiac follow up arranged
ok for DC to home today
Impression / Plan
-
Primary Busher Helper: Dr. Mcclain
Assessment:
Presentation with SOB
Recurrent, symptomatic pleural effusions with thoracenteses approximately once per week (dose of Brukinsa had been decreased in past as felt to be contributing to effusions)
s/p thoracenteses 12/15/2022, 02/26/2023, 04/09/2023, 04/30/2023, 06/01/2023, 07/03/2023, 07/27/2023, 08/16/2023, 09/12/2023, 10/05/2023, 11/02/2023, 11/23/2023, 12/19/2023, 01/04/2024, 01/31/2024, 02/11/2024, 02/25/2024, 03/05/2024, 03/14/2024, 03/24/2024,
04/01/2024, 04/09/2024, 04/23/2024, 04/30/2024, 05/06/2024, 05/13/24
Acute on chronic HFpEF
Leukocytosis
CLL on Brukinsa since 01/2023 and more recently Cristina followed by [facility]
PACs
Paroxysmal, rapid atrial tachycardia
hypertension
hyperlipidemia
history of stroke in 10/2019
GERD
Hypoalbuminemia, mild
Chronic anemia
ECHO 12/07/22: EF 60 to 65%, technically difficult study, no significant valvular pathology, trivial pericardial effusion, pleural effusion noted, IVC dilated and does not collapse
ECHO 05/13/24: EF 60 to 65%, mild concentric LVH, aortic sclerosis, trace AR, top normal size, pleural effusion, enlarged RV size with reduced RV systolic function
Plan:
-He presented with acute on chronic heart failure with preserved EF in setting of mild RV dysfunction and CLL. He has had 26 thoracenteses in the last year and a half, most recently 05/13/2024
-By review of prior echoes, it is felt that RV dysfunction was noted previously and is likely multifactorial secondary to recurrent pleural effusions
-By lights criteria, fluid from tap 05/13 was exudative. He also has prior evidence of CLL in pleural fluid
-He is being arranged for R Pleurx catheter prior to discharge today versus in next 1 to 2 weeks as outpatient through pulmonary and primary service
-Will transition to torsemide 20 mg daily on discharge in place of Lasix which he had been on previously
-BMP and proBNP in 1 week's time
-Possibly Brukinsa contributing to increased volume however unclear if contributing to recurrent pleural effusions
-He previously declined palliative care. He has poor insight into his illnesses and severity. He is a DNR. Overall prognosis appears poor
-Continue low-dose Toprol for paroxysmal atrial tach/SVT of which patient is asymptomatic. Up titration has been limited by hypotension. No clear atrial fibrillation
-Plan for discharge to home today
-outpatient cardiac follow-up arranged
-Discussed with hospitalist
Progress Note - Busher Helper
Subjective
Date of Service: May 16, 2024
Feeling well. Eager for discharge
Objective
Labs:
05/16/24 06:05
05/16/24 06:05
Labs
Hgb 9.1 g/dL (13.0-18.0) L 05/16/24 06:05
Hct 30.6 % (39.0-52.0) L 05/16/24 06:05
Plt Count 194 10^3/uL (130-400) 05/16/24 06:05
Sodium 137 mmol/L (135-145) 05/16/24 06:05
Potassium 4.3 mmol/L (3.5-5.1) 05/16/24 06:05
BUN 20 mg/dl (9-20) 05/16/24 06:05
Creatinine 0.8 mg/dL (0.7-1.3) 05/16/24 06:05
Glucose 102 mg/dl (70-99) H 05/16/24 06:05
Vital Signs and I&O:
Vital Signs
Temp Pulse Resp BP Pulse Ox
98.8 F 70 18 103/68 95
05/16/24 07:30 05/16/24 08:24 05/16/24 07:30 05/16/24 08:24 05/16/24 07:30
Vital Signs
Temp Pulse Resp BP Pulse Ox
98.8 F 70 18 103/68 95
05/16/24 07:30 05/16/24 08:24 05/16/24 07:30 05/16/24 08:24 05/16/24 07:30
Intake & Output
05/14/24 05/15/24 05/16/24 05/17/24
07:59 07:59 07:59 07:59
Intake Total 240 / 240 1470 / 1470 1080 / 1080
Output Total 900 / 900 300 / 300
Balance 240 / 240 570 / 570 780 / 780
Physical Exam
Physical Exam
GEN: No distress, awake, alert, oriented x3. sitting in chair
HEENT: supple, anicteric, mmm, eomi
LUNGS: CTA B/L, no wheezes
CV: Reg, S1/S2, no murmur
ABD: soft, BS+, NT/ND
EXT: No cyanosis, clubbing. 1+ edema of B/L LE. 1+ edema of LUE
NEURO: Gross non-focal
SKIN: Warm, pink, dry. No rash
[2024-05-16 10:49] VITALS: BP 110/81
--- NOTE | 2024-05-16 12:22 | W.PN.PUL3 ---
Today's Communication / Plan
-
Intrapleural catheter in the outpatient setting
Outpatient follow-up with Dr. Jaeger
Sign off
Assessment
-
78-year-old man known to my office for recurrent pleural effusions. Since 2022 has been having recurrent bilateral pleural effusions. More recently in question the reaccumulation on the left. Also reaccumulation in the right but more slowly. In
the past flow cytometry with monoclonal population of lymphocytes consistent with lymphoproliferative disorder. Readmitted with shortness of breath and anasarca. We were consulted for evaluation of recurrent pleural effusions.
Bilateral recurrent pleural effusion status post left thoracentesis-over 25 thoracentesis in the last 2 years.
Based on [facility] records patient in the past decline intrapleural catheter.
1500 cc of clear yellow pleural fluid
pH 7.45/white blood cells 225/61% mononuclear/38% polymorphs/125 glucose/total protein less than 2/LDH 132/fluid amylase less than 30/triglycerides less than 30.
Cytology: Few reactive mesothelial cells. Numerous macrophages present. Mixed inflammatory cells.
Last right thoracentesis 04/23/2024:
Cytology on the right 03/05/2024: Lymphocytes present. No evidence for malignancy. 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
Acute on chronic heart failure with preserved ejection fraction.
Elevated proBNP 1470
Conditions present prior admission:
History of CLL
Hypertension
Hyperlipidemia
Prior history of CVA-residual slurred speech from a stroke.
Recurrent pleural effusion
Atrial fibrillation
Chronic anemia
Assessment and plan:
Recurrent bilateral pleural effusions thought to be related to underlying lymphoproliferative disorder based on flow cytometry, also possibly cardiac etiology.
-
No other etiology has been found in the past: Normal liver, no proteinuria, cytology negative for other type of malignancy, in 2022 echocardiogram was normal as well.
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
Echocardiogram 05/13/2024: Normal LVEF. Normal regional wall motion. Mild LVH enlarged right ventricular size. Reduced right ventricular size and function.(RV dysfunction is new compared to 2022)
-
Unfortunately for the last year or so reaccumulation has been rapid. More recently undergoing thoracentesis almost weekly.
12/15/2022, 02/26/2023, 04/09/2023, 04/30/2023, 06/01/2023, 07/03/2023, 07/27/2023, 08/16/2023, 09/12/2023, 10/05/2023, 11/02/2023, 11/23/2023, 12/19/2023, 01/04/2024, 01/31/2024, 02/11/2024, 02/25/2024, 03/05/2024, 03/14/2024, 03/24/2024, 04/01/2024, 04/09/2024,
04/23/2024, 04/30/2024, 05/06/2024, 05/13/24.
-
Symptomsb improved after left thoracentesis this admission.
-
In the outpatient setting intrapleural catheter has been discussed and he has declined.
Now it is evident that unfortunately, thoracentesis can't be performed on a weekly basis.
He has declined palliative care.
Currently he is DNR.
-
It has been discussed with him in the outpatient setting in the past regarding more aggressive intervention such as VATS pleurodesis versus intrapleural catheter. He has declined based on [facility] records and my recollection.
--
Patient today 05/15/2024 more agreeable to intrapleural catheter. Interventional radiology has been contacted.
Case management aware.
Repeat chest x-ray with small amount of left-sided fluid postthoracentesis
Intrapleural catheter will be performed in the outpatient setting. My office will arrange.
He will follow-up with Dr. Jaeger.
-
Continue with diuresis for now.
-
It is uncertain why patient has RV dysfunction which is new compared to 2022.
Lower extremity Dopplers 04/21/2024: No evidence for deep venous thrombosis on the left upper extremity.
Ultrasound legs negative.
Not hypotensive. Not requiring supplemental oxygen. Doubt thromboembolic disease. Will continue to monitor.
Continue DVT prophylaxis for now.
-
Okay to discharge from my perspective.
Sign off
Subjective Data
-
Date of Service:
Date of Service: May 16, 2024
Chief Complaint: Pulmonary Follow Up (Pleural effusion)
Subjective:
No new complaints
Eager to go home
Objective Data
Data Reviewed
Vital Signs / I&O / Oxygen:
Vital Signs
Temp Pulse Resp BP Pulse Ox
97.8 F 126 18 110/81 95
05/16/24 10:49 05/16/24 10:49 05/16/24 10:49 05/16/24 10:49 05/16/24 11:20
Intake and Output
05/15/24 05/16/24 05/17/24
06:59 06:59 06:59
Intake Total 1470 / 1470 1080 / 1080
Output Total 900 / 900 300 / 300
Balance 570 / 570 780 / 780
SaO2 95
Nasal Cannula flow liters per 2
minute
Physical Exam
General: Comfortable
HEENT: Normocephalic
Cardiovascular: S1-S2
Respiratory: Non-Labored Respirations
GI: Non Distended
Neurology: Awake, Oriented and No Motor Deficits
Labs/Micro/Reports
Lab Data
05/16/24 06:05
05/16/24 06:05
Microbiology
05/13/24 10:45 Pleural Fluid Body Fluid Culture - Final
No Growth After 72 Hours
05/13/24 10:45 Pleural Fluid Gram Stain - Final
05/13/24 10:45 Pleural Fluid Acid Fast Bacilli Smear - Preliminary
05/13/24 10:45 Pleural Fluid Acid Fast Bacilli Culture - Preliminary
05/13/24 10:45 Pleural Fluid Fungal Smear - Final
No yeast or fungal elements seen.
05/13/24 10:45 Pleural Fluid Fungal Culture - Preliminary
Culture in progress.
Positive cultures are reported as soon as detected.
Final report to follow in four to five weeks.
--- NOTE | 2024-05-16 13:14 | W.PN.HOSP.TC ---
Today's Communication/Plan
-
dc to home/VN
OP pulm cath placement; pulm f/u
Assessment / Plan
Assessment / Plan
Assessment:
Acute on chronic HFpEF
- s/p IV Lasix course; dc on Torsemide
- Echo: Normal left ventricular chamber size. Normal left ventricular systolic function. Left ventricular ejection fraction is 60-65%. Normal regional wall motion. Mild concentric left ventricular hypertrophy. Diastolic function normal. Aortic valve
opens normally. Aortic sclerosis without stenosis. Trace aortic regurgitation is seen. Top normal aorta size. Ao Sinus Diameter 3.7 m. Pleural effusion present. Enlarged right ventricular size. Reduced right ventricular systolic function. Since
echo November 2022, right ventricle is dilated and hypokinetic.
- [facility] Cards following
- salt and fluid restrictions
Bilateral pleural effusions
Recurrent, symptomatic pleural effusions with thoracenteses approximately once per week (dose of Brukinsa had been decreased in past as felt to be contributing to effusions)
- s/p L thoracentesis 05/13: 1500 cc removed. fluid labs suggestive of transudative process
- discussed PleurX placement as nearly 25 procedures for thoracentesis in last 18 months. Patient refusing on account of higher risk of infection concern as discussed previously with his treating doctors at [facility]; but now agreeable after
re-evaluation and discussion with Pulmonary. [facility] consulted; planning for outpatient
Leukocytosis
CLL on Brukinsa since 01/2023 and more recently Cristina followed by [facility]
- Onc following; reporting 'relatively good prognosis as patient does not have significant familia disease or hematologic involvement from his CLL'
- Follow up with [facility] in May
PACs
Paroxysmal, rapid atrial tachycardia
- continue Toprol XL
Essential hypertension
hyperlipidemia
- statin
history of stroke in 10/2019
- continue ASA
GERD
Hypoalbuminemia, mild
Chronic anemia
DVT ppx: Lovenox
Code: Full
More than 30 minutes spent in discharge including
Final examination of the patient
Summarizing hospital stay
Instructions for continuing care to all relevant caregivers
Preparation of discharge records, prescriptions, and referral forms
Total time spent (in minutes):41
Anticipated Discharge: Today
Subjective/Interval History
-
Date of Service: May 16, 2024
denies any complaints
Objective Data
-
Labs:
Laboratory Results
05/16/24
06:05
WBC 9.5
Hgb 9.1 L
Hct 30.6 L
Plt Count 194
Sodium 137
Potassium 4.3
Chloride 101
Carbon Dioxide 31 H
BUN 20
Creatinine 0.8
Glucose 102 H
Calcium 8.1 L
Vital Signs:
Vital Signs
Temp Pulse Resp BP Pulse Ox
97.8 F 126 18 110/81 95
05/16/24 10:49 05/16/24 10:49 05/16/24 10:49 05/16/24 10:49 05/16/24 11:20
I&O
05/15/24 05/16/24 05/17/24
06:59 06:59 06:59
Intake Total 1470 / 1470 1080 / 1080
Output Total 900 / 900 300 / 300
Balance 570 / 570 780 / 780
Physical Exam
-
General: No Apparent Distress
HEENT: Normocephalic and Atraumatic
Respiratory: Negative Wheezes
Cardiac: Regular Rhythm and S1/S2
GI: Soft
Musculoskeletal: No Edema
Neuro: AO x 3
Psych: Calm
Data Reviewed
-
Total Time Spent with Patient (in minutes): 41
Labs: Labs Reviewed by me
--- NOTE | 2024-05-16 13:18 | W.DS.TRANS ---
DC Summary - Occupational Therapy Co Director
-
Discharge Instructions:
Discharge Diagnosis/Procedures acute CHF, recurrent pleural effusions. s/p
thoracentesis 05/13
Diet Low Cholesterol,2 Gram Sodium,Restrict fluids to
48 oz
Activity As tolerated
Bathing Restrictions None
Blood Work BMP/proBNP in 1 week - script given
Other Services VN
Specialty Instructions Weigh Daily
Instructions: *[facility] Heart Failure Instructions
Stand-Alone Forms:
Changes to Home Medications: Yes
Discharge Medications:
DC Medications w/original date entered in [facility]
fluticasone propionate 50 mcg/actuation nasal spray,suspension 1 spray intranasal BIDPRN PRN allergies 12/07/22
latanoprost 0.005 % eye drops 1 drp LEFT EYE HS Eye Condition 12/07/22
rosuvastatin 40 mg tablet (Crestor) 40 mg PO HS High Cholesterol 12/07/22
cyanocobalamin (vitamin B-12) 1,000 mcg tablet (Vitamin B-12) 1,000 mcg PO DAILY Supplement 12/14/22
famotidine 20 mg tablet 20 mg PO DAILY Gastrointestinal Issue 12/14/22
zanubrutinib 80 mg capsule (Brukinsa) 160 mg PO BID Cancer 02/26/23
acyclovir 400 mg tablet 400 mg PO Q12H prophylaxis-assisted 04/09/24
Beet Root Gummy 1 gummy PO DAILY Supplement 05/13/24
Immune Retore 1 cap PO DAILY Supplement 05/13/24
aspirin 81 mg tablet,delayed release 81 mg PO DAILY Blood Clot Prevention/Tx 05/13/24
dextromethorphan-guaifenesin 30 mg-600 mg tablet extended [id number] hr (Mucinex DM) 2 tab PO DAILYPRN PRN cough 05/13/24
cisthfwc-laskpzor-fny C 250 mg-herbal no.124 11.66 mg chewable tablet (Airborne Gummy) 1 tab PO DAILY Supplement 05/13/24
obinutuzumab 1,000 mg/40 mL intravenous solution 1,000 mg IV QMONTH Cancer 05/13/24
potassium chloride 20 mEq tablet,extended release 40 meq PO DAILY Electrolyte Repletion 05/13/24
therapeutic multivitamin 1 tab PO DAILY Supplement 05/13/24
metoprolol succinate 25 mg tablet,extended release 24 hr 12.5 mg (1/2 x 25 mg) PO DAILY #30 tabs 05/16/24
torsemide 20 mg tablet 20 mg PO DAILY #30 tabs 05/16/24
Home Medication Changes
metoprolol new
diuretic is now torsemide
Pending Results: No
Total time spent discharging patient (in min): 41
[2024-05-16 14:23] VITALS: BP 116/80
--- NOTE | 2024-05-16 15:23 | W.PN.ONC2 ---
Today's Communication / Plan
-
D/c today
Impression
Impression
78 year old male
CLL
Recurrent BL Pleural Effusions
HFpEF
Plan
Plan
- Pleurex catheter to be done as outpatient
- Will be d/c on Torsemide
- Has follow up with [facility] scheduled early May for continued chemo management of Brukinsa/Gazyva
- Will be d/c'd today
Subjective/Objective
Chief Complaint
Shortness of Breath
Subjective
Feeling much better today. Shortness of breath continuing to improve. no new fevers or chills. No other acute complaints.
Vital Signs:
Vital Signs
Temp Pulse Resp BP Pulse Ox
97.5 F 78 16 116/80 95
05/16/24 14:23 05/16/24 14:23 05/16/24 14:23 05/16/24 14:23 05/16/24 14:23
Lab Results:
Laboratory Data
WBC 9.5 10^3/uL (4.8-10.8) 05/16/24 06:05
Hgb 9.1 g/dL (13.0-18.0) L 05/16/24 06:05
Plt Count 194 10^3/uL (130-400) 05/16/24 06:05
eGFR > 60.00 05/16/24 06:05
Physical Exam
HEENT: Moist Mucous Membranes; No Jaundice
Cardiology: S1, S2 and Irregular rate/rhythm; No Murmur
Pulmonary: Clear and Rales; No Wheezes or Rhonchi
GI: Soft and Normal Bowel Sounds; No Distended
Extremities: No C/C/E
Neuro: Non Focal
Review of Systems
Review of Systems
Constitutional: Denies Fever or Fatigue
Head: Denies Sore Throat or Hearing Loss
Respiratory: Reports Other (SOB; improving); Denies Dyspnea or Cough
Cardiovascular: Denies Chest Pain or Palpitations
Gastrointestinal: Denies Nausea/Vomiting or Diarrhea
Genitourinary: Denies Hematuria
Skin: Denies Rash
Neurological: Denies Headache
Hem/Lymphatic: Denies Night Sweats
--- NOTE | 2024-05-19 09:40 | W.HF.CON ---
Heart Failure
- LV Function
Left ventricular function study result: LV Ejection fraction >/= 50%
Ejection Fraction Percentage: 60-65
- ARNI
Patient already on ARNI: No
Heart Failure ARNI Not Indicated: LV Ejection Fraction >/= 40%
- ACEI/ARB
Patient already on ACEI/ARB: No
Heart Failure ACEI/ARB Not Indicated: LV Ejection Fraction > 40%
- Beta Nancy
Patient already on Evidence Based Beta Nancy: Yes
- Mineralocorticord Receptor Antagonist
Patient already on MRA: No
Heart Failure MRA Not Indicated: LV Ejection Fraction > 40%
- SGLT-2 Inhibitor
Patient already on SGLT-2 Inhibitor: No
Heart Failure SGLT-2 Inhibitor Contraindication: Patient Refusal
- Afib Anticoagulation
Patient already on Anticoagulation for Afib: No
Heart Failure Afib Anticoagulation Contraindication: Blood Dyscrasias (anemia, CLL)
- NYHA CHF Classification
NYHA CHF Classification Level: Class III - Symptoms w/ min exertion, interferes w/ nml daily activity
- ACC/AHA Stage
ACC/AHA Stage: Stage C: Symptomatic Heart Failure
== END 2024-05-16 15:30 | disposition home health service (06) | DRG 291 ==
LOC: 3 WEST ACU 12:25
PROVIDERS: Radiology Diagnostic Radiology; ADMITTING PHYSICIAN Internal Medicine; CONSULT PHYSICIAN Internal Medicine Cardiovascular Disease; CONSULT PHYSICIAN Internal Medicine Critical Care Medicine; EMERGENCY PHYSICIAN Emergency Medicine; FAMILY PHYSICIAN Nurse Practitioner Family; OTHER PHYSICIAN Internal Medicine Hematology & Oncology
PROC: 0W9B3ZZ Drainage of Left Pleural Cavity, Percutaneous Approach (ICD-10-PCS; 2024-05-13)
DX: I11.0 Hypertensive heart disease with heart failure (principal); I50.33 Acute on chronic diastolic (congestive) heart failure; J96.01 Acute respiratory failure with hypoxia; C91.10 Chronic lymphocytic leukemia of B-cell type not having achieved remission; I47.19 Other supraventricular tachycardia; E78.00 Pure hypercholesterolemia, unspecified; K21.9 Gastro-esophageal reflux disease without esophagitis; E88.09 Other disorders of plasma-protein metabolism, not elsewhere classified; D64.9 Anemia, unspecified; R47.81 Slurred speech; E77.8 Other disorders of glycoprotein metabolism; I70.0 Atherosclerosis of aorta; I48.91 Unspecified atrial fibrillation; E11.65 Type 2 diabetes mellitus with hyperglycemia; Z66 Do not resuscitate; I69.328 Other speech and language deficits following cerebral infarction; Z91.148 Patient's other noncompliance with medication regimen for other reason; Z79.82 Long term (current) use of aspirin
CPT/HCPCS: 88305; 32555; 71045; 71046; 80048; 80053; 82150; 82945; 83615; 83735; 83880; 83986; 84157; 84478; 85025; 85027; 87015; 87070; 87102; 87116; 87205; 87206; 88112; 89051; 93005; 93306; 93970; 94762; 96374; 97162; 97167; 97535; 99285; Q9950

== ENCOUNTER → 2024-05-29 10:21 | Outpatient (REF) | payer OTHER, SELFPAY ==
[2024-05-29 10:45] VITALS: BP 113/71; BP_SYST 91
[2024-05-29 11:30] VITALS: BP 105/73
[2024-05-29 12:09] LABS: Body Fluid pH 7.5
[2024-05-29 12:31] LABS: Body Fluid Glucose 127 mg/dl; Body Fluid LDH 111 U/L; Body Fluid Protein 2.1 g/dl
[2024-05-29 13:27] LABS: Body Fluid Mononuclear 86.6 %; Body Fluid Polymorphonuclear 13.4 %; Body Fluid WBC 238 /CUMM
[2024-05-29 13:30] LABS: Body Fluid Second Tech SS
== END ==
LOC: RADI 10:21
PROVIDERS: ATTENDING PHYSICIAN Nurse Practitioner Family; FAMILY PHYSICIAN Nurse Practitioner Family
DX: J90 Pleural effusion, not elsewhere classified (principal)
CPT/HCPCS: 88305; 32555; 71045; 82945; 83615; 83986; 84157; 87015; 87070; 87102; 87116; 87205; 88112; 89051

== ENCOUNTER → 2024-06-13 09:29 | Outpatient (REF) | payer OTHER, SELFPAY ==
[2024-06-13 09:45] VITALS: BP 106/76; BP_SYST 90
[2024-06-13 10:12] VITALS: BP 113/76
== END ==
LOC: RADI 09:29
PROVIDERS: ATTENDING PHYSICIAN Nurse Practitioner Family; FAMILY PHYSICIAN Nurse Practitioner Family
DX: J90 Pleural effusion, not elsewhere classified (principal)
CPT/HCPCS: 32555; 71045

== ENCOUNTER → 2024-07-08 10:24 | Outpatient (REF) | payer OTHER, SELFPAY ==
[2024-07-08 11:11] VITALS: BP 114/89; BP_SYST 81
[2024-07-08 11:29] VITALS: BP 114/89
== END ==
LOC: RADI 10:24
PROVIDERS: ATTENDING PHYSICIAN Nurse Practitioner Family; FAMILY PHYSICIAN Nurse Practitioner Family
DX: J90 Pleural effusion, not elsewhere classified (principal)
CPT/HCPCS: 32555; 71045

== ENCOUNTER → 2024-08-15 12:03 | Outpatient (REF) | payer OTHER, SELFPAY ==
[2024-08-15 12:26] VITALS: BP 142/109; BP_SYST 83
[2024-08-15 12:28] VITALS: BP_SYST 160
[2024-08-15 13:00] VITALS: BP 120/109; BP_SYST 140
[2024-08-15 13:05] VITALS: BP 132/80
== END ==
LOC: RADI 12:03
PROVIDERS: ATTENDING PHYSICIAN Nurse Practitioner Family; FAMILY PHYSICIAN Nurse Practitioner Family
DX: J90 Pleural effusion, not elsewhere classified (principal)
CPT/HCPCS: 32555; 71045; 93005

== ENCOUNTER 2024-08-22 15:46 | Emergency (ER) | payer OTHER, SELFPAY ==
[2024-08-22] VITALS (7 sets, daily range): BP systolic 100–129; BP diastolic 71–100; BMI 29.7
--- NOTE | 2024-08-22 16:34 | ED.GENMED ---
History of Present Illness
General
Chief Complaint: Fainting/Passed Out
Time Seen by Provider: 08/22/24 15:59
History of Present Illness
History of Present Illness:
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 Prior to arrival patient was outside working on
his car. When he came to the house, was shaking. witnessed the tremulousness and patient subsequently fell on the carpet, onto his knees. He was able to get up and went onto the sofa. He subsequently had a syncopal episode. Patient does
not remember the syncopal episode. Patient also notes that he has been having severe back pain, took some old gabapentin from his , which she says was 600 mg. This medication is not prescribed to him. He also did not sleep well, has been up
since 2 AM did not drink anything prior to going outside. Denies any associated chest pain or difficulty breathing. Denies weakness or numbness to his extremities. Denies abdominal pain. Denies any nausea. Denies any head strike. Denies
additional acute medical complaints
Past History
Past History
ED Past Medical History: CVA, HTN, Hypercholesterolemia and Other (Hernia)
ED Past Surgical History: None
Social History
Tobacco: Non-smoker
Alcohol: Occasional
Drug: None
Personal:
Living: with family
Employment: Employed
Family History
Family History: Other (Noncontributory)
Phy Exam
Physical Exam
Physical Exam:
General: Well-appearing, no clinical signs of dehydration, nontoxic and in no acute distress
HEENT: protecting airway
Neck: appears supple
CV: Normal heart rate, regular rhythm, no evidence of cyanosis
Resp: No accessory muscle use, no increased work of breathing, lungs clear to auscultation bilaterally
Abd: Soft and non-distended, no tenderness to palpation
Extremities: 3+ pitting edema to bilateral lower extremities which she notes is chronic. Pitting edema to left upper extremity, also reported as chronic. Healing wound to the right rosario without significant erythema or warmth
Neuro: alert, no focal neurologic deficit
: deferred
Rectal: deferred
Psych: Normal affect
Skin: Intact
Course
Orders/Labs/Results
Orders:
Orders
08/22/24 16:12
0.9% Sodium Chloride 500 ml [Nss] 500 ml IV BOLUS
08/22/24 16:14
Electrocardiogram (*1) Stat
Reason for Study: Other
Other Reason for Exam: chest pain
EKG- Treatment ONCE
CR Chest - 2 Views Urgent
Comment:
Reason For Exam: syncope
08/22/24 16:50
Complete Blood Count/No Diff Urgent
Comprehensive Metabolic Panel Urgent
Magnesium Urgent
PTT Urgent
Prothrombin Time Urgent
Troponin I Urgent
08/22/24 18:15
EKG- Treatment ONCE
08/22/24 19:28
Troponin I Urgent
08/22/24 19:30
Electrocardiogram (*1) Urgent
Reason for Study: Other
Other Reason for Exam: syncope
Abnormal Lab Results
08/22/24
16:50
RBC 4.18 L 10^6/uL
(4.70-6.10)
Hgb 12.0 L g/dL
(13.0-18.0)
Hct 37.2 L %
(39.0-52.0)
MCHC 32.3 L g/dL
(33.0-37.0)
Carbon Dioxide 31 H mmol/L
(22-30)
BUN 25 H mg/dl
(9-20)
Glucose 115 H mg/dl
(70-99)
08/22/24 16:50
08/22/24 16:50
Vital Signs
Initial and Last Documented VS:
Initial Vital Signs
Temp Pulse Resp BP Pulse Ox
98.4 F 129 16 129/96 92
08/22/24 15:48 08/22/24 15:48 08/22/24 15:48 08/22/24 15:48 08/22/24 15:48
Last Documented Vital Signs
Temp Pulse Resp BP Pulse Ox
97.8 F 87 15 115/95 94
08/22/24 17:00 08/22/24 18:30 08/22/24 18:30 08/22/24 18:30 08/22/24 18:30
MDM/Problems Addressed
MDM/Problems Addressed:
79-year-old male with history of CHF with recurrent effusions, CLL on Brukinsa, atrial tachycardia, hypertension, hyperlipidemia, anemia presenting after syncopal episode. Vital signs on arrival are significant for tachycardia.
On exam, patient is resting comfortably, currently asymptomatic. No physical signs of trauma. Regarding etiology of syncope, suspect vasovagal quality. Patient was outside preceding event, did not drink anything prior to going outside, and did
not sleep very well last evening. Additionally patient took 600 mg of gabapentin which is not prescribed to him, which may have contributed to symptoms. However no concern for any significant overdose. EKG obtained, appears unchanged from prior,
low voltage with PACs. Plan for laboratory analysis to ensure no electrolyte derangements or POONAM. Will start on gentle IV fluids in the setting of volume depletion, given history of CHF and chronic edema. Patient also with history of recurrent
pleural effusions, will obtain chest x-ray imaging. Will continue to closely monitor.
18:45 - Labs relatively unremarkable. Troponin within normal range. Will repeat. Chest x-ray shows stable pleural effusions. Patient is feeling much better after some fluids, more alert and conversational. Likely disposition home after repeat
Trop
20:30 -repeat troponin is unchanged and EKG appears unchanged. Patient would prefer to go home, feel this is reasonable given hemodynamic stability and improvement of symptoms. Cautioned against using medications that are not prescribed to him and
also maintaining appropriate hydration. Return precautions discussed patient verbalized understanding
*Pulse Oximetry
SaO2: 93
Oxygen Mode of Delivery: Room air
Patient hypoxic: no
*EKG
Interpreted by ED Provider?: Yes
EKG Intrepretation Date: 08/22/24
EKG Intrepretation Time: 16:43
Interpretation: normal
Comparison EKG: no changes (08/16/23)
Heart Rate: 73
Rate: normal
Rhythm: sinus and PAC's
[place]: normal axis
Interval: normal interval
QRS Pattern: low voltage
Ischemia: no ischemia
*Critical Care Note
Total Time (30-74mins, 75-104mins- exclusive of procedures): Not Applicable
ED Attending Note
-
Portions of this chart may have been created with voice recognition software.� Occasional wrong word or��sound alike� substitutions may have occurred due to the inherent limitations of voice recognition software.
Discharge Plan
Departure
Prescriptions:
No Action
latanoprost 0.005 % Drops
1 drp LEFT EYE HS
fluticasone propionate 50 mcg/actuation [place],Suspension
1 spray INTRANASAL BIDPRN PRN (Reason: allergies)
rosuvastatin [Crestor] 40 mg Tablet
40 mg PO HS
cyanocobalamin (vitamin B-12) [Vitamin B-12] 1,000 mcg Tablet
1,000 mcg PO DAILY
famotidine 20 mg Tablet
20 mg PO DAILY
Brukinsa 80 mg Capsule
160 mg PO BID
therapeutic multivitamin Tablet
1 tab PO DAILY
aspirin 81 mg Tablet,Delayed Release (Dr/Ec)
81 mg PO DAILY
Mucinex DM 30-600 mg Tablet Extended Release 12 Hr
2 tab PO DAILYPRN PRN (Reason: cough)
obinutuzumab 1,000 mg/40 mL Solution
1,000 mg IV QMONTH
potassium chloride 20 mEq Tablet Extended Release
40 meq PO DAILY
Airborne Gummy 250-11.66 mg Tablet,Chewable
1 tab PO DAILY
Beet Root Gummy
1 gummy PO DAILY
Immune Retore capsule
1 cap PO DAILY
torsemide 20 mg Tablet
20 mg PO DAILY Qty: 30 0RF
metoprolol succinate 25 mg Tablet Extended Release 24 Hr
12.5 mg PO DAILY Qty: 30 0RF
Referrals:
Aleksey Torres CRNP [Family Provider, Family Practice]
Interventions
Interventions:
*Risk Screen - Suicide Last Done: 08/22/24 15:48
*General Assessment Last Done: 08/22/24 15:48
*Neglect/Abuse Screening Last Done: 08/22/24 15:48
*ED- Fall Risk Assessment Last Done: 08/22/24 16:29
*ED COVID-19 Vaccine History Last Done: 08/22/24 16:29
ED- Cardiac Assessment Last Done: 08/22/24 18:05
ED- Neurological Assessment Last Done: 08/22/24 16:29
Discharge Date and Time
Print Language: UPPER SORBIAN
[2024-08-22] MEDS: NSS 500 IV (16:54)
[2024-08-22 17:09] LABS: INR 1.08; PT 14.3 Sec (11.4-14.6)
[2024-08-22 17:10] LABS: APTT 29.0 Sec (23.4-35.0)
[2024-08-22 17:14] LABS: ALT (SGPT) 20 U/L (0-50); AST (SGOT) 24 U/L (17-59); Albumin 3.9 g/dl (3.5-5.0); Alkaline Phosphatase 79 U/L (38-126); Blood Urea Nitrogen 25 mg/dl (9-20); Calcium 8.8 mg/dl (8.4-10.2); Carbon Dioxide 31 mmol/L (22-30); Chloride 101 mmol/L (98-107); Estimated Creatinine Clearance 58 ml/min; Glucose 115 mg/dl (70-99); Magnesium 2.2 mg/dl (1.6-2.3); Potassium 3.6 mmol/L (3.5-5.1); Sodium 137 mmol/L (135-145); Total Protein 6.5 g/dl (6.3-8.2); eGFR > 60.00
[2024-08-22 17:21] LABS: Troponin I 0.016 ng/ml
[2024-08-22 17:49] LABS: Hematocrit 37.2 % (39.0-52.0); Hemoglobin 12.0 g/dL (13.0-18.0); Mean Corp Hgb Conc. 32.3 g/dL (33.0-37.0); Mean Corpuscular Volume 89.0 fL (80.0-94.0); Platelet Count 176 10^3/uL (130-400)
--- NOTE | 2024-08-22 19:30 | EDRN ---
Report received, redrew labs and did EKG, patient is sleeping and calm at this time, call hull in reach.
[2024-08-22 20:21] LABS: Troponin I 0.016 ng/ml
--- NOTE | 2024-08-22 20:40 | EDRN ---
Dr. Rodriguez at bedside talking with patient and
== END 2024-08-22 21:34 | disposition home or self-care (01) ==
LOC: EMR 15:46
PROVIDERS: EMERGENCY PHYSICIAN Student in an Organized Health Care Education/Training Program; FAMILY PHYSICIAN Nurse Practitioner Family
DX: E86.0 Dehydration (principal); R55 Syncope and collapse; E78.00 Pure hypercholesterolemia, unspecified; I11.0 Hypertensive heart disease with heart failure; I50.9 Heart failure, unspecified; C91.10 Chronic lymphocytic leukemia of B-cell type not having achieved remission; Z86.73 Personal history of transient ischemic attack (TIA), and cerebral infarction without residual deficits; I49.1 Atrial premature depolarization; Z79.899 Other long term (current) drug therapy
CPT/HCPCS: 96360; 99285; 71046; 80053; 83735; 84484; 85027; 85610; 85730; 93005

== ENCOUNTER 2024-08-25 11:00 | Emergency (ER) | payer OTHER, SELFPAY ==
[2024-08-25 11:02] VITALS: BP 119/81
--- NOTE | 2024-08-25 12:33 | ED.SKININJ ---
HPI-Injury
General
Chief Complaint: Skin Problem
Source: patient
Exam Limitations: none
Time Seen by Provider: 08/25/24 11:31
Nursing documentation reviewed up to this point in time: agreed with
History of Present Illness-Injury
Initial Injury comments:
79-year-old male with history of CLL under chemotherapy, HTN, HLD, CVA, lymphedema both lower extremities presents for laceration of left lower extremity. States within the past 2 hours he was working in his garage and walked up against a razor
knife that was sticking out. He is unsure of his last tetanus immunization.
Patient is followed by wound care nurse for a wound on his bilateral LE lymphedema and right lower extremity which is healing well.
Past History
Past History
ED Past Medical History: Cancer (CLL), CVA, HTN, Hypercholesterolemia and Other (Hernia)
ED Past Surgical History: None
Social History
Tobacco: Non-smoker
Alcohol: Occasional
Drug: None
Personal:
Living: with family
Employment: Employed
Family History
Family History: Other (Noncontributory)
Review of Systems
Review of Systems
Allergies reviewed?: Yes
All Other Systems: ROS reviewed and negative except as documented in HPI and ROS
Skin: Reports other (Cut left lower leg)
Skin Exam
Laceration
Lateral left lower leg:
Length in cm: 6
Orientation: vertical
Type of Laceration: simple
Any active bleeding?: low grade venous oozing
Distal skin color and temperature: normal-warm & good color
Normal distal neurovascular exam: Yes
Range of motion: full
Phy Exam
Physical Exam
Physical Exam:
GENERAL: No acute distress. A&Ox3.
CONSTITUTIONAL: Afebrile.
RESPIRATORY: Regular respirations, nonlabored, lungs clear.
CARDIOVASCULAR: Regular rate and rhythm, no murmurs, no rubs.
GI: Soft, nontender, normal BS
MUSCULOSKELETAL: Moves with ease. Well perfused. Bilateral lower extremity lymphedema
SKIN: Warm, dry, pink. Laceration left lower leg
PSYCH: Normal mood and affect. Well kept, interactive and appropriate
NEUROLOGIC: Awake, alert and oriented. No focal neurological deficits
Course
Orders/Labs/Results
Orders:
Orders
08/25/24 12:04
Tetanus/Diphth/Acelpertussis [Adacel] 0.5 ml IM .ONCE ONE
Vital Signs
Initial and Last Documented VS:
Initial Vital Signs
Temp Pulse Resp BP Pulse Ox
97.7 F 86 20 119/81 95
08/25/24 11:02 08/25/24 11:02 08/25/24 11:02 08/25/24 11:02 08/25/24 11:02
Last Documented Vital Signs
Temp Pulse Resp BP Pulse Ox
98.3 F 66 16 107/77 92
08/25/24 12:58 08/25/24 12:42 08/25/24 12:42 08/25/24 12:42 08/25/24 12:42
Procedures
Laceration Closure
Lateral left lower leg:
Status of Wound: clean
Size of Wound in cm: 6
Description of Wound Edges: sharp
Preparation: cleaned with saline
Anesthesia: 1% Lidocaine with epi
Revision/Debridement: routine- no revision
Wound exploration: explored to base- no FB and no tendon involvement
Type of Closure: interrupted sutures
Skin Closure Material: 3-0 nylon
Number of sutures: 7
Additional information:
Antibiotic ointment, nonstick and gauze dressing applied
MDM/Problems Addressed
MDM/Problems Addressed:
79-year-old male with history of CLL under chemotherapy, HTN, HLD, CVA, lymphedema both lower extremities presents for laceration of right lower extremity. States within the past 2 hours he was working in his garage and walked up against a razor
knife that was sticking out. He is unsure of his last tetanus immunization.
Patient is followed by wound care nurse for a wound on his bilateral LE lymphedema and right lower extremity which is healing well.
Wound edges well-approximated with 3-0 nylon sutures.
Antibiotic ointment and dressing applied
Patient's wound care nurse is coming tomorrow
Due to his being immunocompromised on chemotherapy and his chronic lower extremity lymphedema, he is at greater risk for infection so Keflex 500 mg 4 times daily x 5 days ordered
*Pulse Oximetry
SaO2: 95
Oxygen Mode of Delivery: Room air
Patient hypoxic: not evaluated
*Critical Care Note
Total Time (30-74mins, 75-104mins- exclusive of procedures): Not Applicable
ED Attending Note
-
Portions of this chart may have been created with voice recognition software.� Occasional wrong word or��sound alike� substitutions may have occurred due to the inherent limitations of voice recognition software.
Discharge Plan
Departure
Patient Disposition: Home (Routine Discharge)
Date of Disposition: 08/25/24
Time of Disposition: 12:39
Patient with high blood pressure during this ER visit?: No
Condition: Good
Discharge Problem:
Laceration of left lower leg
Instructions: Wound Care (DC), Stitches - ED discharge instructions
Prescriptions:
New
cephalexin 500 mg capsule
500 mg PO QID 5 Days Qty: 20 0RF
No Action
latanoprost 0.005 % Drops
1 drp LEFT EYE HS
fluticasone propionate 50 mcg/actuation [place],Suspension
1 spray INTRANASAL BIDPRN PRN (Reason: allergies)
rosuvastatin [Crestor] 40 mg Tablet
40 mg PO HS
cyanocobalamin (vitamin B-12) [Vitamin B-12] 1,000 mcg Tablet
1,000 mcg PO DAILY
famotidine 20 mg Tablet
20 mg PO DAILY
Brukinsa 80 mg Capsule
160 mg PO BID
therapeutic multivitamin Tablet
1 tab PO DAILY
aspirin 81 mg Tablet,Delayed Release (Dr/Ec)
81 mg PO DAILY
Mucinex DM 30-600 mg Tablet Extended Release 12 Hr
2 tab PO DAILYPRN PRN (Reason: cough)
obinutuzumab 1,000 mg/40 mL Solution
1,000 mg IV QMONTH
potassium chloride 20 mEq Tablet Extended Release
40 meq PO DAILY
Airborne Gummy 250-11.66 mg Tablet,Chewable
1 tab PO DAILY
Beet Root Gummy
1 gummy PO DAILY
Immune Retore capsule
1 cap PO DAILY
torsemide 20 mg Tablet
20 mg PO DAILY Qty: 30 0RF
metoprolol succinate 25 mg Tablet Extended Release 24 Hr
12.5 mg PO DAILY Qty: 30 0RF
Activity Restrictions/Additional Instructions:
As we discussed, have the sutures removed in 10 to 12 days.
Cleanse the wound daily with mild soap and water as usual, dry well, apply antibiotic ointment and dressing
Have your wound care nurse look at the area tomorrow
I sent a prescription to your pharmacy for Keflex antibiotic to take 4 times a day for 5 days
Interventions
Interventions:
*Risk Screen - Suicide Last Done: 08/25/24 12:58
*General Assessment Last Done: 08/25/24 11:02
*Neglect/Abuse Screening Last Done: 08/25/24 12:58
*ED- Fall Risk Assessment Last Done: 08/25/24 12:58
*ED COVID-19 Vaccine History Last Done: 08/25/24 12:58
*Nursing Disposition Last Done: 08/25/24 12:58
ED-Skin Assessment Last Done: 08/25/24 12:17
Discharge Date and Time
Discharge Date/Time: 08/25/24 13:01
Print Language: KOSOVAN
[2024-08-25] MEDS: ADACEL 0.5 ML IM (12:40)
[2024-08-25 12:42] VITALS: BP 107/77
== END 2024-08-25 13:01 | disposition home or self-care (01) ==
LOC: EMR 11:00
PROVIDERS: EMERGENCY PHYSICIAN Emergency Medicine; FAMILY PHYSICIAN Nurse Practitioner Family
DX: S81.812A Laceration without foreign body, left lower leg, initial encounter (principal); W26.0XXA Contact with knife, initial encounter; C91.10 Chronic lymphocytic leukemia of B-cell type not having achieved remission; E78.00 Pure hypercholesterolemia, unspecified; I10 Essential (primary) hypertension; I89.0 Lymphedema, not elsewhere classified; Z79.60 Long term (current) use of unspecified immunomodulators and immunosuppressants; Z86.73 Personal history of transient ischemic attack (TIA), and cerebral infarction without residual deficits; Z23 Encounter for immunization
CPT/HCPCS: 12002; 90471; 99283; 90715

== ENCOUNTER → 2024-09-11 09:47 | Outpatient (REF) | payer OTHER, SELFPAY | LOC: PET 09:47 | PROVIDERS: ATTENDING PHYSICIAN Nurse Practitioner Adult Health | DX: C91.10 Chronic lymphocytic leukemia of B-cell type not having achieved remission (principal) | CPT/HCPCS: 78815; A9552 ==

== ENCOUNTER → 2024-10-16 13:05 | Outpatient (REF) | payer OTHER, SELFPAY ==
[2024-10-16 13:27] VITALS: BP 122/84; BP_SYST 78
[2024-10-16 14:10] VITALS: BP 108/85
== END ==
LOC: RADI 13:05
PROVIDERS: ATTENDING PHYSICIAN Nurse Practitioner Family; FAMILY PHYSICIAN Nurse Practitioner Family
DX: J90 Pleural effusion, not elsewhere classified (principal)
CPT/HCPCS: 32555; 71045

== ENCOUNTER → 2024-12-16 09:20 | Outpatient (REF) | payer OTHER, SELFPAY ==
[2024-12-16 10:05] VITALS: BP 114/85; BP_SYST 81
[2024-12-16 11:34] VITALS: BP 107/78; BP_SYST 70
== END ==
LOC: RADI 09:20
PROVIDERS: ATTENDING PHYSICIAN Nurse Practitioner Family; FAMILY PHYSICIAN Nurse Practitioner Family
DX: J90 Pleural effusion, not elsewhere classified (principal)
CPT/HCPCS: 32555; 71045

== ENCOUNTER → 2025-01-06 08:22 | Outpatient (REF) | payer OTHER, SELFPAY | LOC: HWRAD 08:22 | DX: R06.09 Other forms of dyspnea (principal); R05.3 Chronic cough | CPT/HCPCS: 71046 ==

== ENCOUNTER → 2025-01-07 09:28 | Outpatient (REF) | payer OTHER, SELFPAY ==
[2025-01-07 09:40] VITALS: BP 130/97; BP_SYST 76
[2025-01-07 10:20] VITALS: BP 99/81
== END ==
LOC: RADI 09:28
PROVIDERS: ATTENDING PHYSICIAN Nurse Practitioner Family; FAMILY PHYSICIAN Nurse Practitioner Family
DX: J90 Pleural effusion, not elsewhere classified (principal)
CPT/HCPCS: 32555; 71045

== ENCOUNTER → 2025-01-20 10:20 | Outpatient (REF) | payer OTHER, SELFPAY ==
[2025-01-20 10:30] VITALS: BP 114/89; BP_SYST 98
[2025-01-20 11:05] VITALS: BP 114/81; BP_SYST 82
[2025-01-20 11:20] VITALS: BP 114/81
== END ==
LOC: RADI 10:20
PROVIDERS: ATTENDING PHYSICIAN Nurse Practitioner Family
DX: J90 Pleural effusion, not elsewhere classified (principal)
CPT/HCPCS: 32555; 71045

== ENCOUNTER → 2025-01-27 12:53 | Outpatient (REF) | payer OTHER, SELFPAY ==
[2025-01-27 13:03] VITALS: BP 105/77; BP_SYST 113
[2025-01-27 13:26] VITALS: BP 104/72
== END ==
LOC: RADI 12:53
PROVIDERS: ATTENDING PHYSICIAN Nurse Practitioner Family
DX: J90 Pleural effusion, not elsewhere classified (principal)
CPT/HCPCS: 32555; 71045

== ENCOUNTER 2025-02-02 15:42 | Inpatient (IN) | payer OTHER, SELFPAY ==
[2025-02-02] VITALS (30 sets, daily range): BP systolic 82–117; BP diastolic 58–96; BMI 29.7; BMI 29.3
--- NOTE | 2025-02-02 12:49 | ED.GENMED ---
History of Present Illness
General
Chief Complaint: Swelling
Source: patient
Exam Limitations: none
Time Seen by Provider: 02/02/25 12:05
Nursing documentation reviewed up to this point in time: agreed with
History of Present Illness
History of Present Illness:
79-year-old male with a past medical history of CLL, chronic and recurrent pleural effusion, hypertension, hyperlipidemia, prior CVA, history of 'tachycardia' for which he sees cardiology (Dr. Mcclain) who presents to the emergency department with
his for evaluation of increased shortness of breath. Patient has chronic dyspnea related to his recurrent pleural effusions�recently has required increased frequency of thoracentesis to help manage his effusions. Most recent thoracentesis was
01/27/2025. Since then he has had increased shortness of breath from his typical to the point that was having trouble getting him around. He has had increased edema in his left arm (this is a chronic issue) as well as in both legs. He has
acute on chronic cough. Very fatigued. He has not had any chest pain. Denies any GI symptoms. Denies any other acute complaints. He was seen by his stock sheets cleaner inspector in the office last week and mention the symptoms and was told to increase his
diuretic but despite this symptoms worsening which prompted visit to the ER today.
Past History
Past History
ED Past Medical History: Cancer (CLL), CVA, HTN, Hypercholesterolemia and Other (Hernia)
ED Past Surgical History: None
Social History
Tobacco: Non-smoker
Alcohol: Occasional
Drug: None
Personal:
Living: with family
Employment: Employed
Family History
Family History: Other (Noncontributory)
Review of Systems
Review of Systems
All Other Systems: ROS reviewed and negative except as documented in HPI and ROS
Constitutional: Reports fatigue; Denies fever
Respiratory: Reports cough and trouble breathing
Cardiac: Denies chest pain or palpitations
ABD/GI: Denies abdominal pain, nausea or vomiting
: Denies flank pain
Musculoskeletal: Denies neck pain or back pain
Neurological: Denies dizzy or headache
Phy Exam
Physical Exam
Physical Exam:
General: Awake, alert, oriented x3; no acute distress
Head: Normocephalic, atraumatic
Eyes: Conjunctiva normal, sclera anicteric
Throat: Airway intact, handling secretions
Neck: Trachea midline, no JVD
Lungs: Patient has diminished breath sounds at the lung bases bilaterally with frequent coughing; he is hypoxic requiring 2 L nasal cannula but no tachypnea or accessory muscle use
Heart: Tachycardia with irregular rhythm, no murmurs, gallops, or rubs
Abd: Soft, non distended, nontender
Neuro: Grossly intact
Skin: Warm and dry, chronic venous stasis changes in the legs
Extremities: Patient has +2 pitting edema in the legs bilaterally he also has pitting edema in the left upper extremity, no edema in the right upper extremity; extremities are warm and well-perfused
Scores
Heart Failure Risk
Heart Failure Risk Score: Yes
History of Stroke or TIA: Yes
History of intubation for respiratory distress: No
Heart rate on ED arrival >/= 110: Yes
SaO2 <90% on arrival on room air: Yes
HR >/=110 during 3min walk test (or too ill to perform test): Yes
ECG has acute ischemic changes: No
Urea >/=12mmol/L (BUN 33.6mg/dL): No
Serum CO2>/=35mmol/L: No
Troponin I or T elevated to NH Level (0.4mg/dL): No
NT-proBNP >/=5,000ng/L (5,000pg/ml): No
HF Risk Score: 4
Admission Status: HIGH RISK 26.1% Consider SNF treatment or admission to hospital
Heart Score for Chest Pain Patients
STEMI patient?: Not applicable
Withdrawal Assessment of Alcohol
Withdrawal Assessment Completed?: Not applicable
Course
Orders/Labs/Results
Orders:
Orders
02/02/25 11:51
Electrocardiogram (*1) Urgent
Reason for Study: Other
Other Reason for Exam: Respiratory Distress
Cardiac Monitoring- Treatment ONCE
EKG- Treatment ONCE
IV Insert/Care/Rem.- Treatment PRN
CR Chest - 2 Views Urgent
Comment:
Reason For Exam: respiratory distress
O2 Therapy [RESP] Urgent
Titrate/Wean O2 to maintain O2 sat greater than (%): 93
Special Instructions: TO MAINTAIN CONTINUOUS O2 SATS >/= 93%
Pulse Ox/cont/shift [RESP] Urgent
Quantity: 1
Special Instructions: continuous pulse ox
02/02/25 12:48
IR[facility] CONSULT Urgent
Consulting Provider: Manjeet Mireles
Was physician already notified: Yes
Procedure being ordered, including laterality if applicable: left thoracentesis
Acknowledgement that appropriate orders are entered: Yes
02/02/25 13:15
Diltiazem HCl [Cardizem] 10 mg IV NOW STA
02/02/25 13:22
Complete Blood Count/With Diff Urgent
NT-proBNP Urgent
Troponin I Urgent
02/02/25 13:58
Body Fluid Cell Count Routine
What is the Body Fluid: pleural fluid
Date Specimen was Collected: 02/02/25
Time Specimen was Collected: 13:56
Comment: post procedure
Body Fluid Glucose Routine
Fluid Source: Pleural
Date Specimen was Collected: 02/02/25
Time Specimen was Collected: 13:56
Body Fluid LDH Routine
Fluid Source: Pleural
Date Specimen was Collected: 02/02/25
Time Specimen was Collected: 13:56
Body Fluid Protein Routine
Fluid Source: Pleural
Date Specimen was Collected: 02/02/25
Time Specimen was Collected: 13:56
Body Fluid Triglycerides Routine
Fluid Source: Pleural
Date Specimen was Collected: 02/02/25
Time Specimen was Collected: 13:56
CR Chest Single View Urgent
Comment:
Reason For Exam: post left thoracentesis
02/02/25 13:59
Fluid Culture with Gram Stain Routine
JAYCOB Source: Pleural Fluid
Specimen Description:
Date Specimen was Collected: 02/02/25
Time Specimen was Collected: 13:56
Comment: post procedure
02/02/25 14:03
Diltiazem 125 mg/125 ml Nss [Cardizem] 125 mg in 125 ml IV NOW
Initial dose in mg/hr, then titrate:: 5
Titrate to keep:: Heart rate 80-100 bpm
Titrate by mg/hr:: 5 mg/hr
Frequency of titrations (minutes):: 15
Maximum dose in mg/hr:: 15
02/02/25 14:34
Furosemide [Lasix] 40 mg IV NOW STA
02/02/25 14:40
Comprehensive Metabolic Panel Urgent
LDH Urgent
02/02/25 15:24
Admit/Transfer Patient As Directed
Co-Sign Provider:
Level of Care: Inpatient admission
Assign to:: IVU
Physician / Group: Mika Scott
Diagnosis: acute hypoxic respiratory failure, recurrent pleural effusion, cellulitis
Reason for Hospitalization: acute hypoxic respiratory failure, recurrent pleural effusion, cellulitis
Expected length of stay greater than two midnights?: Yes
ELOS- Estimated Length of Stay in days: 3
I certify the patient meets the requirements for IP care: Yes
PRN Pain Medication Management As Directed
May give lesser potent ordered pain med per pt: Yes
preference::
Protocol:: Medication orders for pain may be administered in a
manner that supports deferring to patient preference
when the pt is:
- Requesting an ordered lesser potent pain medication.
Least to most potent pain medications are defined
as: acetaminophen < NSAID < tramadol < opioids
(morphine, oxycodone, hydromorphone).
- Requesting a lesser dose of the same medication IF
ORDERED.
- Requesting a less intrusive route of administration
if both routes are prescribed by the provider (PO <
IV).
02/02/25 15:26
Code Status As Directed
Resuscitation Status: Full Code
Abnormal Lab Results
02/02/25 02/02/25
13:22 14:40
WBC 11.5 H 10^3/uL
(4.8-10.8)
RBC 3.85 L 10^6/uL
(4.70-6.10)
Hgb 12.0 L g/dL
(13.0-18.0)
Hct 36.7 L %
(39.0-52.0)
MCV 95.3 H fL
(80.0-94.0)
MCH 31.2 H pg
(27.0-31.0)
MCHC 32.7 L g/dL
(33.0-37.0)
RDW 15.1 H %
(11.5-14.5)
Absolute Neuts (auto) 9.3 H 10^3/uL
(1.4-6.5)
Absolute Lymphs (auto) 1.0 L 10^3/uL
(1.2-3.4)
Absolute Monos (auto) 1.1 H 10^3/uL
(0.1-0.6)
Neutrophils % 81.0 H %
(42.2-75.2)
Lymphocytes % 8.4 L %
(20.5-51.1)
Monocytes % 9.4 H %
(1.7-9.3)
Carbon Dioxide 31 H mmol/L
(22-30)
BUN 22 H mg/dl
(9-20)
Glucose 113 H mg/dl
(70-99)
Total Bilirubin 1.4 H mg/dl
(0.2-1.3)
Lactate Dehydrogenase 263 H U/L
(120-246)
02/02/25 13:22
02/02/25 14:40
Vital Signs
Initial and Last Documented VS:
Initial Vital Signs
Temp Pulse Resp BP Pulse Ox
36.5 C 104 19 116/85 88
02/02/25 11:47 02/02/25 11:47 02/02/25 11:47 02/02/25 11:47 02/02/25 11:47
Last Documented Vital Signs
Temp Pulse Resp BP Pulse Ox
36.5 C 138 23 106/76 97
02/02/25 11:47 02/02/25 14:49 02/02/25 14:30 02/02/25 14:49 02/02/25 14:30
MDM/Problems Addressed
Differential Diagnosis Includes:
Recurrent effusion, CHF, pneumonia, PE, pneumothorax
MDM/Problems Addressed:
79-year-old male with history as noted presents for evaluation of increased shortness of breath�acute on chronic in the setting of recurrent effusions. He is tachycardic and hypoxic but no tachypnea, no fever, normotensive. Physical exam is as
noted. Plan to check labs including a CBC and a CMP, troponin, proBNP. Check chest x-ray and EKG. Monitor closely reassess after the above.
EKG appears to show that patient is in atrial fibrillation with RVR�it sounds like there is a questionable history of A-fib according to his 'they always think he is in A-fib but the stock sheets cleaner inspector does not think it is anything more than
tachycardia.' Certainly it is a low voltage EKG but no discernible P waves, irregularly irregular and heart rate 140s would be unusual for sinus rhythm at age 79. He is not anticoagulated would not be candidate for cardioversion here in the ER.
Will rate control. I did review his chest x-ray he has significant pleural effusion bilaterally, left greater than right. No pneumothorax noted. No ah edema and no clear pneumonia. I did discuss with [facility] to consider for thoracentesis to help
with his symptoms. Overall suspect likely CHF possibly exacerbated by A-fib with RVR and recurrent pleural effusion. Will require admission pending rest of workup will plan for diuresis pending chemistry to evaluate electrolytes and renal function.
Chronic conditions affecting care:
CLL, recurrent effusions
*Radiology
Radiology exam reviewed: preliminary read by ED provider
*Pulse Oximetry
SaO2: 88
Oxygen Mode of Delivery: Room air
Patient hypoxic: yes (88)
*EKG
Interpreted by ED Provider?: Yes
Heart Rate: 143
Rate: tachycardiac
Rhythm: a-fib
[place]: normal axis
Interval: normal interval
QRS Pattern: low voltage
Ischemia: non-specific ST changes
*Critical Care Note
Total Time (30-74mins, 75-104mins- exclusive of procedures): Not Applicable
Data Reviewed
Review of Other/Old Records Reveals: Labs, Records, Operative Reports and Testing
Source: patient, records and spouse
Patient Management
Discussion with other providers: Hospitalist (Discussed with hospitalist)
Escalation/DeEscalation of care consider admission/obs:
Admission indicated
ED Attending Note
-
Portions of this chart may have been created with voice recognition software.� Occasional wrong word or��sound alike� substitutions may have occurred due to the inherent limitations of voice recognition software.
Discharge Plan
Departure
Patient Disposition: Admit
Date of Disposition: 02/02/25
Time of Disposition: 14:35
Admit to doctor: Tyler
Presentation/result/management discussed w/ accepting MD/DO: Hospitalist
Discharge Problem:
Atrial fibrillation with RVR, Acute hypoxemic respiratory failure, Pleural effusion
Interventions
Interventions:
*General Assessment Last Done: 02/02/25 11:47
*Neglect/Abuse Screening Last Done: 02/02/25 11:47
*ED COVID-19 Vaccine History Last Done: 02/02/25 13:55
*ED Influenza Vaccine History Last Done: 02/02/25 13:55
[facility] Fall Risk Assessment Tool Last Done: 02/02/25 13:20
*Risk Screen - Suicide (C-SSRS) Last Done: 02/02/25 11:47
ED- Cardiac Assessment Last Done: 02/02/25 13:20
ED- Pulmonary Assessment Last Done: 02/02/25 13:20
ED-Skin Assessment Last Done: 02/02/25 13:20
[2025-02-02] MEDS: CARDIZEM 10 MG IV (13:29)
[2025-02-02 13:40] LABS: Hematocrit 36.7 % (39.0-52.0); Hemoglobin 12.0 g/dL (13.0-18.0); Mean Corp Hgb Conc. 32.7 g/dL (33.0-37.0); Mean Corpuscular Volume 95.3 fL (80.0-94.0); Nucleated Red Blood Cells % 0 % (-); Platelet Count 311 10^3/uL (130-400); Red Cell Dist. Width 15.1 % (11.5-14.5)
[2025-02-02 14:12] LABS: Troponin I 0.023 ng/ml
--- NOTE | 2025-02-02 14:38 | HPS.HSE ---
Family Physician
-
Family Physician:
Chief Complaint
-
increased shortness of breath and generalized edema
History of Present Illness
Patient is a 79-year-old male with past medical history significant for HFpEF, essential hypertension, hyperlipidemia, paroxysmal atrial fibrillation, Hx CVA, CLL and recurrent pleural effusions who presented to [facility] ED for evaluation of increased
shortness of breath and generalized edema. Patient reports chronic dyspnea with pleural effusions. States he has been going every-other month for thoracentesis until last month when he has been needing thoracentesis every-other week. He reports last
one was 6 days ago and they drained 400cc. Patient had thoracentesis today for 1400cc. He also notes bilateral lower extremity erythema with warmth. Denies any fever, chills, cough, chest pain, nausea, vomiting, diarrhea or urinary symtpoms.
Medical History
Past Medical History
Past Medical History: Reports Other
Additional Past Medical History:
HFpEF
essential hypertension
hyperlipidemia
paroxysmal atrial fibrillation
Hx CVA
CLL on Brukinsa since 01/2023 and more recently [place] followed by [facility]
recurrent pleural effusions with thoracenteses approximately once per week
Past Surgical History: Reports None
Additional Past Surgical History:
FOBT 12/22/22- negative, repeat 1 year. (No record of Colonoscopy)
Scheduled 04/11/21 for robotic assisted inguinal hernia repair w/ mesh, Dr Fontana at
thoracentesis every 3 wks
Social History
Tobacco: Non-smoker
Alcohol: Occasional
Drug: None
Personal:
Living: With Family
Employment: Employed
Family History
Family History: Not pertinent
Allergies / Home Medications
Allergies reflects when Allergies were last updated in [employer].
Home Medications with original date entered in [employer]
Allergy/Medication List:
Allergies
Allergy/AdvReac Type Severity Reaction Status Date / Time
No Known Allergies Allergy Verified 01/20/25 10:37
Home Medications
latanoprost 0.005 % eye drops 1 drp LEFT EYE HS Eye Condition 12/07/22
rosuvastatin 40 mg tablet (Crestor) 40 mg PO HS High Cholesterol 12/07/22
zanubrutinib 80 mg capsule (Brukinsa) 160 mg PO BID Cancer 02/26/23
aspirin 81 mg tablet,delayed release 81 mg PO DAILY Blood Clot Prevention/Tx 05/13/24
potassium chloride 20 mEq tablet,extended release 40 meq PO DAILY Electrolyte Repletion 05/13/24
metoprolol succinate 25 mg tablet,extended release 24 hr 12.5 mg (1/2 x 25 mg) PO DAILY #30 tabs 05/16/24
acetaminophen 500 mg tablet (Tylenol Extra Strength) 1,000 mg PO Q6H PRN mild pain 02/02/25
ibuprofen 200 mg tablet (Advil) 200 mg PO Q6H PRN mild pain 02/02/25
oxymetazoline 0.05 % nasal spray 2 spray intranasal Q12H PRN congestion 02/02/25
torsemide 20 mg tablet 40 mg PO BID 02/02/25
Review of Systems
-
History Source: Patient
Constitutional: Reports Weight Gain; Denies Fever or Chills
EENT: Denies Sore Throat
Respiratory: Reports Trouble Breathing; Denies Cough or Hemoptysis
Cardiac: Denies Chest Pain, Diaphoresis, Palpitations or Syncope
Abdomen/GI: Denies Abdominal Pain, Nausea, Vomiting or Diarrhea
: Denies Dysuria, Frequency or Urgency
Musculoskeletal: Denies Joint Pain
Skin: Reports Other (BLLE erythema )
Neurological: Denies Dizzy, Headache, Weakness or Numbness
Physical Exam
Vital Signs
Vital Signs
Temp Pulse Resp BP Pulse Ox
97.7 F 112 23 108/82 97
02/02/25 11:47 02/02/25 14:30 02/02/25 14:30 02/02/25 14:00 02/02/25 14:30
Physical Exam
General: Well Developed, Well Nourished, No Apparent Distress, Comfortable and Conversant
HEENT: NormoCephalic, PERRLA, Nose Appears Normal and Ears Appear Normal
Respiratory: Clear, Non Labored Respirations, Decreased Breath Sounds and Other (O2 @ 2L via NC); No Wheezes, Rales or Rhonchi
Cardiac: S1/S2, Irregular Rhythm and Tachycardia; No Murmur, Rub or Gallop
GI: Soft, Non Tender, Non Distended and Normal Bowel Sounds
Musculoskeletal: No Clubbing and No Cyanosis
Skin: Warm, IV/Catheter Site and Other (BLLE erythema )
Neuro: Awake and AO x 3
Psych: Calm and Intact Judgment/Insight
Laboratory Results
-
02/02/25 13:22
Laboratory Results
Total Bilirubin Cancelled 02/02/25 13:22
AST Cancelled 02/02/25 13:22
ALT Cancelled 02/02/25 13:22
Alkaline Phosphatase Cancelled 02/02/25 13:22
Troponin I 0.023 ng/ml 02/02/25 13:22
Data Reviewed
-
Diagnostic Radiology: Report Reviewed by me (CXR: 1. Improved left pleural effusion following thoracentesis. No pneumothorax. 2. Mild pulmonary edema. Small residual bilateral pleural effusions.)
Medical Tests (Nuc Med, Echo, EKG etc): Report Reviewed by me (EKG: ATRIAL FIBRILLATION WITH RAPID VENTRICULAR RESPONSE LOW VOLTAGE QRS NONSPECIFIC T WAVE ABNORMALITY)
Lab Data: Labs Reviewed by me (WBC 11.5, Neut 81.0, pBNP 2620)
Impression/Plan
-
IMPRESSION/PLAN:
#acute hypoxic respiratory insufficiency
#increased shortness of breath and generalized edema 2/2 acute on chronic HF vs. recurrent pleural effusions vs. PNA
#recurrent pleural effusions with thoracenteses approximately once per week
WBC 11.5, Neut 81.0, pBNP 2620
EKG: ATRIAL FIBRILLATION WITH RAPID VENTRICULAR RESPONSE
LOW VOLTAGE QRS
NONSPECIFIC T WAVE ABNORMALITY
CXR: 1. Improved left pleural effusion following thoracentesis. No pneumothorax.
2. Mild pulmonary edema. Small residual bilateral pleural effusions.
Thoracentesis: Successful ultrasound-guided thoracentesis, yielding 1400 cc of serosanguineous pleural fluid.
- Admit to IVU
- pleural fluid cultures pending
- wean O2 as tolerated to maintain SpO2>93%
#atrial fibrillation with RVR
#paroxysmal atrial fibrillation
- Consult Cardiology
- diltiazem gtt
- continue metoprolol
#BLLE cellulitis
- IV Ancef
- supportive care
#HFpEF
- daily weights
- I & Os
- continue potassium chloride
- continue torsemide
#essential hypertension
- continue metoprolol
#hyperlipidemia
- continue rosuvastatin
#CLL
on Brukinsa since 01/2023 and more recently [place] followed by [facility]
- continue Brukinsa
#Hx CVA
Code status: full code
DVT prophylaxis: heparin sq
[2025-02-02] MEDS: LASIX 40 MG IV (14:49)
[2025-02-02] MEDS: CARDIZEM 125 IV (14:50)
--- NOTE | 2025-02-02 14:50 | EDRN ---
Patient medicated with Lasix 40mg IV and Cardizem drip started at 5mg/HR.
[2025-02-02 14:59] LABS: Body Fluid Second Tech EF
[2025-02-02 15:06] LABS: ALT (SGPT) 16 U/L (0-50); AST (SGOT) 24 U/L (17-59); Albumin 3.6 g/dl (3.5-5.0); Alkaline Phosphatase 70 U/L (38-126); Blood Urea Nitrogen 22 mg/dl (9-20); Calcium 8.7 mg/dl (8.4-10.2); Carbon Dioxide 31 mmol/L (22-30); Chloride 99 mmol/L (98-107); Estimated Creatinine Clearance 64 ml/min; Glucose 113 mg/dl (70-99); LDH 263 U/L (120-246); Potassium 3.7 mmol/L (3.5-5.1); Sodium 137 mmol/L (135-145); Total Protein 6.5 g/dl (6.3-8.2); eGFR > 60.00
--- NOTE | 2025-02-02 16:40 | CON.CAR ---
Addendum entered and electronically signed by Tico Andrade MD 02/02/25 19:23:
79-year-old man admitted with acute on chronic HFpEF and atrial fibrillation. Sent from IR today after thoracentesis for tachycardia
PMH: CLL requiring intermittent thoracenteses, onBrukinsa and Gazyva, chronic HFpEF, hyperlipidemia, hypertension, history of stroke 2019, GERD, paroxysmal atrial tachycardia
Outpatient meds: Aspirin 81 mg a day, Brukinsa, ibuprofen, Xalatan, metoprolol ER 12.5 twice daily, Oxy metolazone, potassium 40 meq daily, rosuvastatin 40 mg a day, torsemide 40 mg twice daily
104/74, pulse 95, respiratory rate 23, afebrile, Weight is 81 kg, was 90 kg in April, chronically ill,
Chest x-ray bilateral effusions, vascular congestion
Chest x-ray with bilateral effusions and vascular congestion
Thoracentesis earlier today, 1400 mL from left chest with serosanguineous fluid
White count 11.5, hemoglobin 12, platelets are 311, BUN and creatinine are 22 and 0.9, carbon dioxide is 31, potassium is 3.7, LDH is 263, proBNP is 2620, had been 1470, troponin is 0.023
ECG: Probable atrial tachycardia with intermittent sinus beats, low voltage
Echo:November 2022 EF 60-65%, no significant valvular pathology, pleural effusion, trace pericardial effusion
Impression:
Paroxysmal atrial tachycardia, paroxysmal atrial fibrillation not identified
Presumed lower extremity cellulitis
CLL on Brukinsa
Acute on chronic HFpEF
Hypertension
Hyperlipidemia
History of stroke
GERD
Plan:
He presents with acute on chronic HFpEF with bilateral pleural effusions, he feels better after thoracentesis for 1.4 L from the left chest today. He is on high-dose torsemide.
We asked to consult regarding atrial fibrillation but I think his current rhythm is atrial tachycardia. His tachycardia could be contributing to HFpEF. Previously he required thoracentesis every 2 months and now it is every 2 weeks.
By report, loculated effusion on right precludes thoracentesis. By Lights criteria, today's fluid has some characteristics of a transudate. It is conceivable that his fluid is both exudative from CLL but also possibly related to HFpEF. In
addition he has low voltage and has not had a recent echocardiogram, it will be important to exclude a significant pericardial effusion. At last echo, his pericardial effusion was trace in 2022
Also, with a long history of CLL, we should touch base with oncology to see if AL amyloidosis is a possibility that could be contributing to HFpEF.. If so, therapeutic options likely limited.
He is now on a diltiazem drip. Rates are better controlled.
Best option may be to add amiodarone. Will start 200 mg 3 times daily.
Given that we have not clearly established a diagnosis of atrial fibrillation we will hold Eliquis for now. Although we have not clearly seen atrial fibrillation, he is at high risk for atrial fibrillation in the future..
He may benefit from intensifying diuretics. If HFpEF is a contributor to his pleural effusions, we might be able to reduce the frequency of thoracenteses.
Original Note:
Consultation
Consultation Request
Date/Time Consultation Requested: 02/02/2025
Date/Time Consultation Performed: 02/02/2025
Requesting Provider: Dr. Scott
Performing Provider: Nancy Thomas PA-C for Dr. SHEKHAR Andrade
Reason for Consultation: CHF, Afib
Medical History
-
Chief Complaint: SOB
History of Present Illness:
HPI: Shiv is an 79-year-old male with past medical history of CLL on Brukinsa since 01/2023, recurrent pleural effusions with frequent thoracenteses, hypertension, hyperlipidemia, prior stroke 10/2019, paroxysmal atrial tachycardia, frequent PACs,
and GERD. Presented to [facility] for evaluation of increased shortness of breath and edema. He was seen in the cardiology office on 01/26/2025 and appeared volume overloaded, so he was placed on higher dose torsemide 40 mg twice daily. Did discuss
at that time that he would possibly need admission given symptoms. He did not improve with higher dose torsemide, so came to ER 02/02. Chest x-ray noted left pleural effusion and he underwent thoracentesis with 1400 cc removed. He notes
improvement in his breathing following this, however still has significant lower extremity edema. His weight has been slowly increasing as outpatient. Previously he was between 172 pounds, and weight has climbed to 179 pounds. Bilateral lower
extremity cellulitis noted on exam. He has been started on antibiotics by primary service. Cardiology consulted due to possible atrial fibrillation on the monitor. He previously has had a questionable history of atrial fibrillation, but
historically has been felt to be SR with frequent PACs and brief runs of atrial tachycardia. Remains on 2 L NC at this time, and is comfortably lying on stretcher in ER. Denies any chest pain.
PMH:
Recurrent pleural effusions with thoracenteses approximately once per week (dose of Brukinsa had been decreased in past as felt to be contributing to effusions)
Chronic HFpEF
CLL on Brukinsa since 01/2023 and more recently Cristina followed by [facility]
PACs
Paroxysmal atrial tachycardia
hypertension
hyperlipidemia
history of stroke in 10/2019
GERD
Past Medical History
Past Medical History: Other (in HPI)
Social History
Tobacco: Non-Smoker
Personal:
Living: With Family
Employment: Retired
Family History
Family History: Diabetes
Allergies / Home Medications
Allergy/AdvReac Type Severity Reaction Status Date / Time
No Known Allergies Allergy Verified 01/20/25 10:37
�Medication �Instructions �Recorded �Confirmed �Type
latanoprost 0.005 % eye drops 1 drp LEFT EYE HS Eye Condition 12/07/22 02/02/25 History
rosuvastatin 40 mg tablet (Crestor) 40 mg PO HS High Cholesterol 12/07/22 02/02/25 History
zanubrutinib 80 mg capsule 160 mg PO BID Cancer 02/26/23 02/02/25 History
(Brukinsa)
aspirin 81 mg tablet,delayed 81 mg PO DAILY Blood Clot 05/13/24 02/02/25 History
release Prevention/Tx
potassium chloride 20 mEq 40 meq PO DAILY Electrolyte 05/13/24 02/02/25 History
tablet,extended release Repletion
metoprolol succinate 25 mg 12.5 mg (1/2 x 25 mg) PO DAILY #30 05/16/24 02/02/25 Rx
tablet,extended release 24 hr tabs
acetaminophen 500 mg tablet 1,000 mg PO Q6H PRN mild pain 02/02/25 02/02/25 History
(Tylenol Extra Strength)
ibuprofen 200 mg tablet (Advil) 200 mg PO Q6H PRN mild pain 02/02/25 02/02/25 History
oxymetazoline 0.05 % nasal spray 2 spray intranasal Q12H PRN 02/02/25 02/02/25 History
congestion
torsemide 20 mg tablet 40 mg PO BID 02/02/25 02/02/25 History
Review of Systems
-
History Source: Patient
All other systems: Negative unless noted
Physical Exam
Vital Signs
Temp Pulse Resp BP Pulse Ox
97.7 F 95 23 104/74 96
02/02/25 11:47 02/02/25 16:07 02/02/25 16:07 02/02/25 16:07 02/02/25 14:49
Lab Results
02/02/25 13:22
02/02/25 14:40
Troponin I 0.023 ng/ml 02/02/25 13:22
Muj-X-Kblortwodcn Pept 2620 pg/ml 02/02/25 13:22
Physical Exam
General: Well Developed, Well Nourished and No Apparent Distress
HEENT: Normocephalic and Moist Mucous Membranes
Respiratory: Crackles and Non Labored Respirations
Cardiac: S1/S2 and Irregular Rhythm
Musculoskeletal: No Clubbing, No Cyanosis and Edema
Skin: Warm and Dry
Neuro: AO x 3 and Nonfocal/Grossly Intact
Psych: Calm
Impression / Plan
-
PCP: Tomás Leslie
Bullard Machine Operator: Dr. Mcclain
Impression:
Presented with SOB, weight gain, LE edema
b/l LE cellulitis
Recurrent, symptomatic pleural effusions with thoracenteses approximately once per week (dose of Brukinsa had been decreased in past as felt to be contributing to effusions)
s/p thoracenteses 12/15/2022, 02/26/2023, 04/09/2023, 04/30/2023, 06/01/2023, 07/03/2023, 07/27/2023, 08/16/2023, 09/12/2023, 10/05/2023, 11/02/2023, 11/23/2023, 12/19/2023, 01/04/2024, 01/31/2024, 02/11/2024, 02/25/2024, 03/05/2024, 03/14/2024, 03/24/2024,
04/01/2024, 04/09/2024, 04/23/2024, 04/30/2024, 05/06/2024, 05/13/24, 05/29/2024, 06/13/2024, 07/08/2024, 08/15/2024, 10/16/2024, 12/16/2024, 01/07/2025, 01/20/2025, 01/27/2025, 02/02/2025
Acute on chronic HFpEF
CLL on Brukinsa since 01/2023 and more recently Gazyva followed by [facility]
PACs
Paroxysmal, rapid atrial tachycardia
hypertension
hyperlipidemia
history of stroke in 10/2019
GERD
Hypoalbuminemia, mild
Chronic anemia
ECHO 12/07/22: EF 60 to 65%, technically difficult study, no significant valvular pathology, trivial pericardial effusion, pleural effusion noted, IVC dilated and does not collapse
ECHO 05/13/24: EF 60 to 65%, mild concentric LVH, aortic sclerosis, trace AR, top normal size, pleural effusion, enlarged RV size with reduced RV systolic function
Echo 02/02/2025: Study pending
Plan:
-Presented with shortness of breath, weight gain, and increased lower extremity edema despite increasing outpatient torsemide.
-s/p L thoracentesis with 1400 cc removed. Breathing somewhat improved, but still on supplemental O2.
-Given a dose of IV Lasix in ER. Would continue IV Lasix 80 mg daily. May need up titration of diuretics depending on response.
-Creat stable at 0.9. Follow with diuresis.
-Weight up approximately 7 pounds. Previously had been down to 172 pounds, but now up to 179 pounds at home.
-Follow daily weights, I&O's.
-Prior echo 05/13/2024 with preserved EF with reduced RV systolic function. Will repeat echo to reassess.
-Appears to be in atrial fibrillation by initial EKG and on review of telemetry.
-Heart rates improving on Cardizem gtt. Continue metoprolol 12.5 mg daily for now. BP borderline.
-There has been question of atrial fibrillation in the past, however rhythm has previously been felt to more likely be sinus rhythm with frequent PACs and brief runs of atrial tachycardia.
-Has been maintained on aspirin alone, but would be reasonable to start anticoagulation given [id number] score of 6. Would consider starting Eliquis 5 mg twice daily.
-Agree with antibiotics for bilateral lower extremity cellulitis.
-Wean O2 as able.
HPI: Shiv is an 79-year-old male with past medical history of CLL on Brukinsa since 01/2023, recurrent pleural effusions with frequent thoracenteses, hypertension, hyperlipidemia, prior stroke 10/2019, paroxysmal atrial tachycardia, frequent PACs,
and GERD. Presented to [facility] ER for evaluation of increased shortness of breath and edema. He was seen in the cardiology office on 01/26/2025 and appeared volume overloaded, so he was placed on higher dose torsemide 40 mg twice daily. Did discuss
at that time that he would possibly need admission given symptoms. He did not improve with higher dose torsemide, so came to ER 02/02. Chest x-ray noted left pleural effusion and he underwent thoracentesis with 1400 cc removed. He notes
improvement in his breathing following this, however still has significant lower extremity edema. His weight has been slowly increasing as outpatient. Previously he was between 172 pounds, and weight has climbed to 179 pounds. Bilateral lower
extremity cellulitis noted on exam. He has been started on antibiotics by primary service. Cardiology consulted due to possible atrial fibrillation on the monitor. He previously has had a questionable history of atrial fibrillation, but
historically has been felt to be SR with frequent PACs and brief runs of atrial tachycardia. Remains on 2 L NC at this time, and is comfortably lying on stretcher in ER. Denies any chest pain.
Data Reviewed
-
EKG: Tracing Personally Visualized and interpreted
Radiology: Report Reviewed by me
Labs: Labs Reviewed by me
Old Records: Reviewed
--- NOTE | 2025-02-02 18:42 | W.PN.UPDATE ---
Update Note
Progress Note Update
Attending note
Patient seen independently
79-year-old man with past medical history of:
HFpEF,
essential hypertension,
hyperlipidemia,
paroxysmal atrial fibrillation,
Hx CVA,
CLL
recurrent pleural effusions
has increased shortness of breath and generalized edema. He has chronic dyspnea with pleural effusions. He has been going every-other month for thoracentesis until last month when this changed to every-other week. Last one was 6 days ago and they
drained 400cc. Thoracentesis today for 1400cc. There is also bilateral lower extremity erythema with warmth. He Denies any fever, chills, cough, chest pain, nausea, vomiting, diarrhea or urinary symptoms.
Past Medical History
HFpEF
essential hypertension
hyperlipidemia
paroxysmal atrial fibrillation
Hx CVA
CLL on [facility] since 01/2023 and more recently Cristina followed by [place] [facility]
recurrent pleural effusions with thoracenteses approximately once per week
FOBT 12/22/22- negative, repeat 1 year. (No record of Colonoscopy)
Scheduled 04/11/21 for robotic assisted inguinal hernia repair w/ mesh, Dr Fontana at
thoracentesis every 3 wks
Physical Exam
General: Well Developed, Well Nourished, No Apparent Distress,
HEENT: NormoCephalic, PERRLA,
Respiratory: Clear, Non Labored Respirations, Decreased Breath Sounds
Cardiac: S1/S2, Irregular Rhythm and Tachycardia;
GI: Soft, Non Tender, Non Distended
Skin: Warm, IV/Catheter Site and Other (BLLE erythema )
Psych: Calm
IMPRESSION/PLAN:
1. acute hypoxic respiratory insufficiency
Complicated by increased shortness of breath and generalized edema 2/2 acute on chronic HF vs. recurrent pleural effusions vs. PNA
COmplicated by Recurrent pleural effusions with thoracenteses approximately once per week
- Admit to IVU
- pleural fluid cultures pending
- wean O2 as tolerated to maintain SpO2>93%
2. atrial fibrillation with RVR & paroxysmal atrial fibrillation
- Consult Cardiology. Cardiology stated:
'-Presented with shortness of breath, weight gain, and increased lower extremity edema despite increasing outpatient torsemide.
-s/p L thoracentesis with 1400 cc removed. Breathing somewhat improved, but still on supplemental O2.
-Given a dose of IV Lasix in ER. Would continue IV Lasix 80 mg daily. May need up titration of diuretics depending on response.
-Creat stable at 0.9. Follow with diuresis.
-Weight up approximately 7 pounds. Previously had been down to 172 pounds, but now up to 179 pounds at home.
-Follow daily weights, I&O's.
-Prior echo 05/13/2024 with preserved EF with reduced RV systolic function. Will repeat echo to reassess.
-Appears to be in atrial fibrillation by initial EKG and on review of telemetry.
-Heart rates improving on Cardizem gtt. Continue metoprolol 12.5 mg daily for now. BP borderline.
-There has been question of atrial fibrillation in the past, however rhythm has previously been felt to more likely be sinus rhythm with frequent PACs and brief runs of atrial tachycardia.
-Has been maintained on aspirin alone, but would be reasonable to start anticoagulation given [id number] score of 6. Would consider starting Eliquis 5 mg twice daily.
-Agree with antibiotics for bilateral lower extremity cellulitis.
-Wean O2 as able.'
- diltiazem gtt
- continue metoprolol
3. BLLE cellulitis
- IV Ancef
Please see [employer] note for full details on
HFpEF
essential hypertension
hyperlipidemia
CLL
Hx CVA
Code status: full code
DVT prophylaxis: heparin sq
--- NOTE | 2025-02-02 19:59 | EDRN ---
yusef barraza page for straight cath as pt bladder scan greater than 400mls.
[2025-02-02] MEDS: PACERONE 200 MG PO (21:18)
[2025-02-02] MEDS: CRESTOR 40 MG PO (21:18)
[2025-02-02] MEDS: ANCEF 5 IV (21:19)
[2025-02-02] MEDS: ELIQUIS 5 MG PO (21:20)
[2025-02-02] MEDS: XALATAN OPHTHALMIC SOLUTION 1 DROP LEFT EYE (22:10)
[2025-02-02] MEDS: NON-FORMULARY ITEM 160 MG PO (22:11)
[2025-02-03] VITALS (27 sets, daily range): BP systolic 83–119; BP diastolic 46–101; BMI 29.2
--- NOTE | 2025-02-03 01:44 | PTCARENOTE ---
Addendum entered by Lucia Singh RN 02/03/25 01:46:
Bladder scan for 495 ml. Straight cath for 500ml vidhya urine
Original Note:
Pt admitted to room 0206. Pt AAOx 3 forgetful. AFib on monitor with HR 100-120 BPM. On Cardizem gtt per order. Pt denies any pain at this time. Pt oriented to the room, safety measures in place.
[2025-02-03] MEDS: CARDIZEM 125 IV (04:33)
[2025-02-03 05:01] LABS: Hematocrit 35.4 % (39.0-52.0); Hemoglobin 11.8 g/dL (13.0-18.0); Mean Corp Hgb Conc. 33.3 g/dL (33.0-37.0); Mean Corpuscular Volume 95.7 fL (80.0-94.0); Platelet Count 283 10^3/uL (130-400); Red Cell Dist. Width 15.1 % (11.5-14.5)
[2025-02-03 05:25] LABS: Blood Urea Nitrogen 22 mg/dl (9-20); Calcium 8.0 mg/dl (8.4-10.2); Carbon Dioxide 31 mmol/L (22-30); Chloride 98 mmol/L (98-107); Estimated Creatinine Clearance 51 ml/min; Glucose 105 mg/dl (70-99); Sodium 137 mmol/L (135-145); eGFR > 60.00
[2025-02-03 05:31] LABS: Potassium 3.3 mmol/L (3.5-5.1)
[2025-02-03] MEDS: ANCEF 5 IV ×3 (05:54→22:52)
[2025-02-03] MEDS: ELIQUIS 5 MG PO (08:15)
[2025-02-03] MEDS: KCL 40 MEQ PO ×3 (08:15→17:56)
[2025-02-03] MEDS: ASPIR LOW (ENTERIC COATED) 81 MG PO (08:15)
[2025-02-03] MEDS: PACERONE 200 MG PO ×3 (08:16→22:53)
[2025-02-03] MEDS: NON-FORMULARY ITEM 160 MG PO ×2 (08:18→20:49)
[2025-02-03] MEDS: TOPROL XL 12.5 MG PO (08:18)
[2025-02-03] MEDS: FLUSH (NSS) 1 FLUSH IV (08:19)
--- NOTE | 2025-02-03 09:38 | PTCARENOTE ---
Patient in AF this morning with HR in the 80's-110's on cardizem at 5mg/hr however BP 88/69. Cardizem gtt placed on hold, notified Melissa LYNCH, holding off on IV lasix until BP stable as well. Patient offers no complaints, resting in bed, call hull
in reach.
--- NOTE | 2025-02-03 10:16 | W.PN.CARDCBS ---
Addendum entered and electronically signed by Tico Andrade MD 02/03/25 18:14:
79-year-old man admitted with acute on chronic HFpEF and atrial fibrillation. Sent from IR today after thoracentesis for tachycardia
PMH: CLL requiring intermittent thoracenteses, on Brukinsa, chronic HFpEF, hyperlipidemia, hypertension, history of stroke 2019, GERD, paroxysmal atrial tachycardia
Outpatient meds: Aspirin 81 mg a day, Brukinsa, ibuprofen, Xalatan, metoprolol ER 12.5 twice daily, Oxy metolazone, potassium 40 meq daily, rosuvastatin 40 mg a day, torsemide 40 mg twice daily
Current meds: IV diltiazem, aspirin 81 mg a day, Xalatan, metoprolol ER 12.5 mg daily, potassium 40 mill equivalents daily, Brukinsa, Ancef, rosuvastatin, apixaban 5 twice daily, furosemide 80 mg IV twice daily, amiodarone 200 mg 3 times daily,
potassium
He is comfortable at rest, but still dyspnea with minimal exertion. Not on oxygen at home, currently here on 2 L
86/70, pulse 87, respiratory rate 17 pulse 87, respiratory rate 17, weight is 79.7 kg, unchanged, diminished breath sounds right greater than left, irregular rate but controlled, no obvious murmurs, abdomen benign, extremities with some edema.
EKG today sinus rhythm with PACs, rate 87
Echo 02/03/2025: Grossly normal LV size and low normal systolic function, EF 50-55%, normal RV, no obvious valvular abnormality, no pericardial effusion
Hemoglobin is 11.8, potassium is 3.3, BUN and creatinine are 22 and 1.0, proBNP was 2620
Impression:
Acute on chronic HFpEF
Paroxysmal atrial tachycardia
CLL with recurrent pleural effusions
Bilateral lower extremity cellulitis
Hypertension
Hyperlipidemia
History of stroke
GERD
Plan:
With regards to HFpEF, he is largely unchanged. Will double furosemide to 80 mg IV twice daily. He may need metolazone. At home he is on very high dose torsemide, the equivalent of 160 mg of furosemide twice daily. Consider addition of
metolazone if he fails to diurese.
We have never established a diagnosis of atrial fibrillation, but he has ongoing episodes of atrial tachycardia. Would continue to hold Eliquis unless atrial fibrillation is documented.
His rate seems considerably better on amiodarone and low-dose IV diltiazem. Will stop diltiazem, continue low-dose metoprolol and amiodarone. He may need diltiazem added back if rate control becomes an issue.
He can be considered for spironolactone and or Farxiga if blood pressure permits. Currently he remains hypotensive.
Unclear that we will be able to optimize volume status.
Original Note:
Today's Communication / Plan
-
Echo today
Continue amiodarone load
Check EKG which will help determine need for OAC versus aspirin
Continue IV diuresis
Aggressive repletion of potassium ordered by me
Impression / Plan
-
PCP: Tomás Leslie
Audit Analyst: Dr. Mcclain
Impression:
Presented 02/02/2025 with SOB, weight gain, LE edema
b/l LE cellulitis
Recurrent, symptomatic pleural effusions with thoracenteses approximately once per week (dose of Brukinsa had been decreased in past as felt to be contributing to effusions)
s/p thoracenteses 12/15/2022, 02/26/2023, 04/09/2023, 04/30/2023, 06/01/2023, 07/03/2023, 07/27/2023, 08/16/2023, 09/12/2023, 10/05/2023, 11/02/2023, 11/23/2023, 12/19/2023, 01/04/2024, 01/31/2024, 02/11/2024, 02/25/2024, 03/05/2024, 03/14/2024, 03/24/2024,
04/01/2024, 04/09/2024, 04/23/2024, 04/30/2024, 05/06/2024, 05/13/24, 05/29/2024, 06/13/2024, 07/08/2024, 08/15/2024, 10/16/2024, 12/16/2024, 01/07/2025, 01/20/2025, 01/27/2025, 02/02/2025
Acute on chronic HFpEF, proBNP 2620
Paroxysmal atrial tachycardia vs Atrial fibrillation w/ RVR
h/o Paroxysmal atrial tachycardia
CLL on Brukinsa since 01/2023 and more recently Gazyva followed by [place] [facility]
PACs
hypertension
hyperlipidemia
history of stroke in 10/2019
GERD
Hypoalbuminemia, mild
Chronic anemia
ECHO 12/07/22: EF 60 to 65%, technically difficult study, no significant valvular pathology, trivial pericardial effusion, pleural effusion noted, IVC dilated and does not collapse
ECHO 05/13/24: EF 60 to 65%, mild concentric LVH, aortic sclerosis, trace AR, top normal size, pleural effusion, enlarged RV size with reduced RV systolic function
Echo 02/02/2025: Study pending
Plan:
-Presented 02/02/2025 with shortness of breath, weight gain, and increased lower extremity edema despite increasing outpatient torsemide.
- Patient has history of recurrent left pleural effusion with frequent thoracentesis initially monthly then every 3 weeks and most recently every 2 weeks. S/p L thoracentesis 02/02 with 1400 cc removed. Breathing somewhat improved, but still on
supplemental O2. Wean oxygen as able
-Continue IV Lasix 80 mg daily. Weight down 3 lbs overnight. Current weight 175 lbs. Previously had been down to 172 pounds
-Potassium 3.3. Aggressive repletion with ongoing diuresis. Will give an extra 40 meq at 1300 and 1800 02/03. Keep K+ greater than 4
-Creat stable at 1.0. Follow with diuresis.
-Follow daily weights, I&O's.
-Prior echo 05/13/2024 with preserved EF with reduced RV systolic function. Will repeat echo to reassess.
-History of paroxysmal atrial tachycardia. Patient was in rapid atrial rhythm on admission. Attending pest locator thought it was atrial tachycardia rather than atrial fibrillation. Placed on on IV diltiazem drip and low-dose Toprol. Amiodarone
200 mg TID started 02/02 in evening. Developed hypotension 02/03/2025 requiring drip to be placed on hold. Heart rates seem to be improving. Continue Amiodarone load
-Check ECG in am with addition of Amiodarone and to reassess rhythm with improved heart rate
-Had been maintained on aspirin prior to this admission. He does have elevated [id number] score of 6. Initiated on Eliquis 5 mg twice daily 02/02/2025 and evening. Await repeat ECG for reassessment of rhythm. If atrial tachycardia will
discontinue Eliquis and continue aspirin. If patient is in A-fib then would consider continuing Eliquis and stopping aspirin.
-Agree with antibiotics for bilateral lower extremity cellulitis.
Plan discussed with patient, nursing, at bedside
HPI: Shiv is an 79-year-old male with past medical history of CLL on Brukinsa since 01/2023, recurrent pleural effusions with frequent thoracenteses, hypertension, hyperlipidemia, prior stroke 10/2019, paroxysmal atrial tachycardia, frequent PACs,
and GERD. Presented to [facility] ER for evaluation of increased shortness of breath and edema. He was seen in the cardiology office on 01/26/2025 and appeared volume overloaded, so he was placed on higher dose torsemide 40 mg twice daily. Did discuss
at that time that he would possibly need admission given symptoms. He did not improve with higher dose torsemide, so came to ER 02/02. Chest x-ray noted left pleural effusion and he underwent thoracentesis with 1400 cc removed. He notes
improvement in his breathing following this, however still has significant lower extremity edema. His weight has been slowly increasing as outpatient. Previously he was between 172 pounds, and weight has climbed to 179 pounds. Bilateral lower
extremity cellulitis noted on exam. He has been started on antibiotics by primary service. Cardiology consulted due to possible atrial fibrillation on the monitor. He previously has had a questionable history of atrial fibrillation, but
historically has been felt to be SR with frequent PACs and brief runs of atrial tachycardia. Remains on 2 L NC at this time, and is comfortably lying on stretcher in ER. Denies any chest pain.
Progress Note - Audit Analyst
Subjective
Date of Service: February 03, 2025
Patient seen and examined. Patient sitting in bed on 2 L of oxygen. Notes improved shortness of breath but still does not seem to be back to baseline
Objective
Labs:
02/03/25 04:16
02/03/25 04:16
Labs
Hgb 11.8 g/dL (13.0-18.0) L 02/03/25 04:16
Hct 35.4 % (39.0-52.0) L 02/03/25 04:16
Plt Count 283 10^3/uL (130-400) 02/03/25 04:16
Sodium 137 mmol/L (135-145) 02/03/25 04:16
Potassium 3.3 mmol/L (3.5-5.1) L 02/03/25 04:16
BUN 22 mg/dl (9-20) H 02/03/25 04:16
Creatinine 1.0 mg/dL (0.7-1.3) 02/03/25 04:16
Glucose 105 mg/dl (70-99) H 02/03/25 04:16
Troponins
02/02/25
13:22
Troponin I 0.023
Vital Signs and I&O:
Vital Signs
Temp Pulse Resp BP Pulse Ox
97.8 F 95 18 100/68 95
02/03/25 08:49 02/03/25 09:20 02/03/25 09:20 02/03/25 09:04 02/03/25 08:49
Vital Signs
Temp Pulse Resp BP Pulse Ox
97.8 F 95 18 100/68 95
02/03/25 08:49 02/03/25 09:20 02/03/25 09:20 02/03/25 09:04 02/03/25 08:49
Intake & Output
02/01/25 02/02/25 02/03/25 02/04/25
06:59 06:59 06:59 06:59
Intake Total 200 / 200
Output Total 500 / 500
Balance -300 / -300
Physical Exam
Physical Exam
GEN: No distress, awake, Ox3, sitting in bed on oxygen
HEENT: supple, anicteric, mmm
LUNGS: Mildly decreased at bases with few fine crackles otherwise CTA, no wheezes/rales, on 2 L oxygen via nasal cannula
CV: Reg, S1/S2, no murmur, rub or gallop
ABD: soft, BS+, NT/ND
EXT: Left upper extremity +2-3 edema, skin changes consistent with chronic venous stasis/lymphedema. Bilateral lower extremities +1-2 hard edema with skin changes consistent with chronic venous stasis
NEURO: Gross non-focal
SKIN: No rash, warm, dry, pink
--- NOTE | 2025-02-03 11:12 | PTCARENOTE ---
EKG done as per cardiology to determine the patient's true rhythm. BP remains lower despite cardizem being on hold, unable to given IV lasix at this time. at the bedside, echo being done.
[2025-02-03] MEDS: LASIX 80 MG IV ×2 (12:49→22:55)
--- NOTE | 2025-02-03 13:51 | PTCARENOTE ---
SBP > 100 and able to give IV lasix as ordered.
--- NOTE | 2025-02-03 14:10 | W.PN.HOSP.TC ---
Today's Communication/Plan
-
Echo pending
Continue with diuresis
Monitor creatinine closely
Wean oxygen as tolerated
Assessment / Plan
Assessment / Plan
General: Well Developed, Well Nourished, No Apparent Distress, Comfortable and Conversant
HEENT: NormoCephalic, Nose Appears Normal and Ears Appear Normal
Respiratory: Non Labored Respirations, D (O2 @ 2L via NC);
Cardiac: S1/S2, Irregular Rhythm and Tachycardia;
GI: Soft, Non Tender, Non Distended and Normal Bowel Sounds
Musculoskeletal: No Clubbing and No Cyanosis
Skin: Warm, IV/Catheter Site and Other (BLLE erythema and edema-improved
Neuro: Awake and AO x 3
Psych: Calm and Intact Judgment/Insight
#Acute hypoxic respiratory insufficiency
#Acute on chronic diastolic heart failure
Echocardiogram pending for today
Continue with IV diuresis
Requires invasive monitoring.
Strict I's and O's. Daily weights
Wean oxygen as tolerated
Cardiology following
#Recurrent pleural effusions secondary to CLL
Status post thoracentesis 02/02
Follow-up on the fluid culture results
#Hypokalemia
Replete and monitor
#Atrial tachycardia versus atrial fibrillation
Status post Cardizem drip-held further due to hypotension
EKG with low voltage. Possibly atrial tachycardia
Started on amiodarone 200 mg 3 times daily
Await further cards input
#Bilateral lower extremity venous stasis
Improvement with diuresis
#Primary hypertension
Now with hypotension
Monitor blood pressure closely
#Hyperlipidemia continue with statin
CLL continue with outpatient follow-up
History of CVA continue with aspirin
DVT prophylaxis-start Lovenox
Full code
Discussed with spouse at bedside in detail
Anticipated Discharge: > 48 hours
Subjective/Interval History
-
Date of Service: February 03, 2025
states improvement in breathing
Objective Data
-
Labs:
Laboratory Results
02/03/25
04:16
WBC 10.2
Hgb 11.8 L
Hct 35.4 L
Plt Count 283
Sodium 137
Potassium 3.3 L
Chloride 98
Carbon Dioxide 31 H
BUN 22 H
Creatinine 1.0
Glucose 105 H
Calcium 8.0 L
Vital Signs:
Vital Signs
Temp Pulse Resp BP Pulse Ox
97.9 F 77 17 102/74 94
02/03/25 10:53 02/03/25 12:49 02/03/25 11:05 02/03/25 12:49 02/03/25 10:53
I&O
02/02/25 02/03/25 02/04/25
06:59 06:59 06:59
Intake Total 200 / 200 360 / 360
Output Total 500 / 500
Balance -300 / -300 360 / 360
--- NOTE | 2025-02-03 14:15 | CM ---
Chart reviewed. Patient is independent of ADLS, lives with his in a [address], [address], ambulates with a SPC. Plan is for the patient to return home. CM to follow
--- NOTE | 2025-02-03 20:00 | PTCARENOTE ---
Assumed care of patient at change of shift. AAOx3, VSS, Afib on tele, HR 120's. Patient is on 2L O2 - 94%. Plan of care discussed, call hull within reach.
[2025-02-03] MEDS: CRESTOR 40 MG PO (22:52)
[2025-02-03] MEDS: XALATAN OPHTHALMIC SOLUTION 1 DROP LEFT EYE (22:53)
[2025-02-04] VITALS (10 sets, daily range): BP systolic 98–127; BP diastolic 65–93; PULSE 71; O2SAT 96; BMI 29.6
[2025-02-04] MEDS: ANCEF 5 IV ×3 (06:05→21:58)
[2025-02-04 06:13] LABS: Blood Urea Nitrogen 26 mg/dl (9-20); Calcium 8.0 mg/dl (8.4-10.2); Carbon Dioxide 31 mmol/L (22-30); Chloride 99 mmol/L (98-107); Estimated Creatinine Clearance 52 ml/min; Glucose 106 mg/dl (70-99); Potassium 4.3 mmol/L (3.5-5.1); Sodium 135 mmol/L (135-145); eGFR > 60.00
[2025-02-04] MEDS: PACERONE 200 MG PO ×3 (08:42→22:03)
[2025-02-04] MEDS: KCL 40 MEQ PO (08:42)
[2025-02-04] MEDS: ASPIR LOW (ENTERIC COATED) 81 MG PO (08:42)
[2025-02-04] MEDS: LASIX 80 MG IV ×2 (08:44→16:27)
[2025-02-04] MEDS: FLUSH (NSS) 1 FLUSH IV (08:44)
[2025-02-04] MEDS: TOPROL XL 12.5 MG PO (08:45)
[2025-02-04] MEDS: NON-FORMULARY ITEM 160 MG PO ×2 (08:45→20:05)
--- NOTE | 2025-02-04 10:48 | PTCARENOTE ---
Resting in bed this morning with O2 off, pulse ox on RA 89% and placed back on 2L NC with pulse ox of 94%. Patient refusing to get oob this AM, gets dyspneic with minimal exertion. LUE remains very edematous, +4 pitting, pulse palpable. INT RAC
area not flushing and appears phlebotic. VAT called and placed IV access in RUE. Able to give IV lasix this morning as ordered, SBP > 100.
--- NOTE | 2025-02-04 13:43 | PTCARENOTE ---
Patient is tolerating sitting oob in the chair, states he was initially a little dizzy but feeling better now. Chair alarm in place, call hull in reach.
--- NOTE | 2025-02-04 14:03 | CM ---
Chart reviewed. Patient is independent of ADLS, lives with his in a [address], [address], ambulates with a SPC. PT/OT eval ordered. Patient also may need home O2. CM to monitor functional assessment. CM to follow
--- NOTE | 2025-02-04 14:04 | W.PN.HOSP.TC ---
Today's Communication/Plan
-
Continue with diuresis. Dose of Zaroxolyn
Continue with amiodarone
Wean oxygen as tolerated
Assessment / Plan
Assessment / Plan
General: Well Developed, Well Nourished, No Apparent Distress, Comfortable and Conversant
HEENT: NormoCephalic, Nose Appears Normal and Ears Appear Normal
Respiratory: Mild tachypnea returns (O2 @ 2L via NC);
Cardiac: S1/S2, Irregular Rhythm
GI: Soft, Non Tender, Non Distended and Normal Bowel Sounds
Musculoskeletal: No Clubbing and No Cyanosis
Skin: Warm, IV/Catheter Site and Other (BLLE erythema and edema-improved
Neuro: Awake and AO x 3
Psych: Calm and Intact Judgment/Insight
#Acute hypoxic respiratory insufficiency
#Acute on chronic diastolic heart failure
Echocardiogram EF of 50 to 55%. Normal ventricular size and function. No gross valvular normality. No pericardial effusion. No significant change compared to prior 05/13
Continue with IV diuresis-not passing much urine and increase in rate. Dose of Zaroxolyn later today.
Requires invasive monitoring.
Strict I's and O's. Daily weights
Wean oxygen as tolerated
Cardiology following
#Recurrent pleural effusions likely suspected secondary to CLL versus possibility of heart failure
Status post thoracentesis 02/02
Follow-up on the fluid culture results preliminary negative
Cytology was not sent
Hopefully with diuresis decrease the frequency of thoracentesis
#Hypokalemia
Replete and monitor
#Atrial tachycardia versus atrial fibrillation
Status post Cardizem drip-held further due to hypotension
EKG 02/05/2024 showing atrial fibrillation
Started on amiodarone 200 mg 3 times daily
Defer anticoagulation to cardiology
Await further cards input
#Bilateral lower extremity venous stasis
Improvement with diuresis
#Primary hypertension
Monitor blood pressure closely with diuresis
#Hyperlipidemia continue with statin
CLL continue with outpatient follow-up
History of CVA continue with aspirin
DVT prophylaxis-start Lovenox
Full code
Updated spouse over the phone in details. Advised spouse to bring in patient advanced directive.
Anticipated Discharge: > 48 hours
Subjective/Interval History
-
Date of Service: February 04, 2025
remains on oxygen
gained little bit of weight
states improvement in edema
Objective Data
-
Labs:
Laboratory Results
02/04/25
04:33
Sodium 135
Potassium 4.3 D
Chloride 99
Carbon Dioxide 31 H
BUN 26 H
Creatinine 1.1
Glucose 106 H
Calcium 8.0 L
Vital Signs:
Vital Signs
Temp Pulse Resp BP Pulse Ox
97.3 F 75 22 117/85 94
02/04/25 11:16 02/04/25 11:40 02/04/25 11:16 02/04/25 11:17 02/04/25 11:16
I&O
02/03/25 02/04/25 02/05/25
06:59 06:59 06:59
Intake Total 200 / 200 1600 / 1600
Output Total 500 / 500 1230 / 1230 350 / 350
Balance -300 / -300 370 / 370 -350 / -350
Data Reviewed
-
Total Time Spent with Patient (in minutes): 55
--- NOTE | 2025-02-04 14:20 | W.PN.CARDCBS ---
Addendum entered and electronically signed by Herbert Stevens DO 02/04/25 17:31:
I saw and examined the patient.
The Automotive Diagnostic Technician's note was reviewed and I agree with the note.
Comment:
Plan:
Continue IV Lasix diuresis. His weight is flat. Add metolazone to help with diuresis. He remains volume overloaded
Continue amiodarone for rhythm control and resume Eliquis for stroke prophylaxis 6 in the setting of paroxysmal atrial tachycardia given elevated [id number] score.
Recent echo reviewed and showed preserved LV function with no significant valve disease
Continue supportive care with antibiotics for bilateral lower extremity cellulitis
Patient does not appear to have great insight into the gravity of his comorbid medical conditions and is anticipating d/c soon
Discussed with at bedside and answered all questions to her satisfaction
Original Note:
Today's Communication / Plan
-
continue IV lasix. add metolazone and assess response
continue amio for rhythm control of PAT
compression stockings
Impression / Plan
-
PCP: Tomás Leslie
Fiscal Manager: Dr. Mcclain
Impression:
Presented 02/02/2025 with SOB, weight gain, LE edema
b/l LE cellulitis
Recurrent, symptomatic pleural effusions with thoracenteses approximately once per week (dose of Brukinsa had been decreased in past as felt to be contributing to effusions)
s/p thoracenteses 12/15/2022, 02/26/2023, 04/09/2023, 04/30/2023, 06/01/2023, 07/03/2023, 07/27/2023, 08/16/2023, 09/12/2023, 10/05/2023, 11/02/2023, 11/23/2023, 12/19/2023, 01/04/2024, 01/31/2024, 02/11/2024, 02/25/2024, 03/05/2024, 03/14/2024, 03/24/2024,
04/01/2024, 04/09/2024, 04/23/2024, 04/30/2024, 05/06/2024, 05/13/24, 05/29/2024, 06/13/2024, 07/08/2024, 08/15/2024, 10/16/2024, 12/16/2024, 01/07/2025, 01/20/2025, 01/27/2025, 02/02/2025
Acute on chronic HFpEF, proBNP 2620
Paroxysmal atrial tachycardia vs Atrial fibrillation w/ RVR
h/o Paroxysmal atrial tachycardia
CLL on Brukinsa since 01/2023 and more recently Gazyva followed by [place] [facility]
PACs
hypertension
hyperlipidemia
history of stroke in 10/2019
GERD
Hypoalbuminemia, mild
Chronic anemia
ECHO 12/07/22: EF 60 to 65%, technically difficult study, no significant valvular pathology, trivial pericardial effusion, pleural effusion noted, IVC dilated and does not collapse
ECHO 05/13/24: EF 60 to 65%, mild concentric LVH, aortic sclerosis, trace AR, top normal size, pleural effusion, enlarged RV size with reduced RV systolic function
Echo 02/02/2025: TDS, EF 50-55%, no gross valvular abnormalities, no pericardial effusion, no significant change from prior study
Plan:
-Presented 02/02/2025 with shortness of breath, weight gain, and increased lower extremity edema despite increasing outpatient torsemide.
-S/p L thoracentesis 02/02 with 1400 cc removed.
-he remains grossly volume overloaded.
-will continue IV Lasix 80 mg twice daily and give metolazone 5 mg. Creatinine 1.1 on 02/04
-discussed use of compression stockings
-echo 01/2025 was without significant change, reviewed with patient and 02/04
-he has known PAT. was started on amiodarone 02/02 with improvement in burden. reports his HRs have been rapid as OP. we discussed this could be contributing to his issues with fluid retention. currently in SR on review of tele
-continue asa for now. if clear afib seen, would transition to eliquis
-Agree with antibiotics for bilateral lower extremity cellulitis.
-he states he is leaving on Sunday. PT reports need for SNF upon DC however patient refuses
-d/w nursing, at bedside, PT.
HPI: Shiv is an 79-year-old male with past medical history of CLL on Brukinsa since 01/2023, recurrent pleural effusions with frequent thoracenteses, hypertension, hyperlipidemia, prior stroke 10/2019, paroxysmal atrial tachycardia, frequent PACs,
and GERD. Presented to [facility] ER for evaluation of increased shortness of breath and edema. He was seen in the cardiology office on 01/26/2025 and appeared volume overloaded, so he was placed on higher dose torsemide 40 mg twice daily. Did discuss
at that time that he would possibly need admission given symptoms. He did not improve with higher dose torsemide, so came to ER 02/02. Chest x-ray noted left pleural effusion and he underwent thoracentesis with 1400 cc removed. He notes
improvement in his breathing following this, however still has significant lower extremity edema. His weight has been slowly increasing as outpatient. Previously he was between 172 pounds, and weight has climbed to 179 pounds. Bilateral lower
extremity cellulitis noted on exam. He has been started on antibiotics by primary service. Cardiology consulted due to possible atrial fibrillation on the monitor. He previously has had a questionable history of atrial fibrillation, but
historically has been felt to be SR with frequent PACs and brief runs of atrial tachycardia. Remains on 2 L NC at this time, and is comfortably lying on stretcher in ER. Denies any chest pain.
Progress Note - Fiscal Manager
Subjective
Date of Service: February 04, 2025
remains with edema, some SOB
Objective
Labs:
02/03/25 04:16
02/04/25 04:33
Labs
Hgb 11.8 g/dL (13.0-18.0) L 02/03/25 04:16
Hct 35.4 % (39.0-52.0) L 02/03/25 04:16
Plt Count 283 10^3/uL (130-400) 02/03/25 04:16
Sodium 135 mmol/L (135-145) 02/04/25 04:33
Potassium 4.3 mmol/L (3.5-5.1) D 02/04/25 04:33
BUN 26 mg/dl (9-20) H 02/04/25 04:33
Creatinine 1.1 mg/dL (0.7-1.3) 02/04/25 04:33
Glucose 106 mg/dl (70-99) H 02/04/25 04:33
Troponins
02/02/25
13:22
Troponin I 0.023
Vital Signs and I&O:
Vital Signs
Temp Pulse Resp BP Pulse Ox
97.3 F 75 22 117/85 94
02/04/25 11:16 02/04/25 11:40 02/04/25 11:16 02/04/25 11:17 02/04/25 11:16
Vital Signs
Temp Pulse Resp BP Pulse Ox
97.3 F 75 22 117/85 94
02/04/25 11:16 02/04/25 11:40 02/04/25 11:16 02/04/25 11:17 02/04/25 11:16
Intake & Output
02/02/25 02/03/25 02/04/25 02/05/25
07:59 07:59 07:59 07:59
Intake Total 200 / 560 1600 / 1600
Output Total 500 / 500 1230 / 1230 350 / 350
Balance -300 / 60 370 / 370 -350 / -350
Physical Exam
Physical Exam
GEN: No distress, awake, alert, oriented x3. sitting in chair. on supp O2
HEENT: supple, anicteric, mmm, eomi
LUNGS: Crackles B/L, no wheezes
CV: Reg, S1/S2, no murmur
ABD: soft, BS+, NT/ND
EXT: No cyanosis, clubbing. 4+ edema of B/L LE and LUE
NEURO: Gross non-focal
SKIN: Warm, pink, dry. No rash
[2025-02-04] MEDS: ZAROXOLYN 5 MG PO (15:26)
[2025-02-04] MEDS: ELIQUIS 5 MG PO (20:05)
[2025-02-04] MEDS: CRESTOR 40 MG PO (22:03)
[2025-02-04] MEDS: XALATAN OPHTHALMIC SOLUTION 1 DROP LEFT EYE (22:04)
[2025-02-05] VITALS (12 sets, daily range): BP systolic 85–120; BP diastolic 51–85; PULSE 79; O2SAT 93; BMI 28.9
--- NOTE | 2025-02-05 00:05 | PTCARENOTE ---
Pt. resting in bed quietly, VSS, NSR on the monitor. Left lung with fine crackles at the base, pulse ox 94-97% on 2L. Voiding clear yellow urine without difficulty, 650 ml so far this shift. Offered to remove left arm and bilateral leg tubigrips
for the night, pt. refuses, states he likes the way they feel.
[2025-02-05 03:40] LABS: Blood Urea Nitrogen 30 mg/dl (9-20); Calcium 8.3 mg/dl (8.4-10.2); Carbon Dioxide 32 mmol/L (22-30); Chloride 95 mmol/L (98-107); Estimated Creatinine Clearance 43 ml/min; Glucose 99 mg/dl (70-99); Potassium 4.0 mmol/L (3.5-5.1); Sodium 134 mmol/L (135-145); eGFR > 60.00
[2025-02-05] MEDS: ANCEF 5 IV ×3 (06:09→22:23)
[2025-02-05] MEDS: KCL 40 MEQ PO (08:29)
[2025-02-05] MEDS: PACERONE 200 MG PO ×3 (08:29→22:23)
[2025-02-05] MEDS: TOPROL XL 12.5 MG PO (08:29)
[2025-02-05] MEDS: ELIQUIS 5 MG PO ×2 (08:29→20:10)
[2025-02-05] MEDS: LASIX 80 MG IV ×2 (08:30→15:35)
[2025-02-05] MEDS: NON-FORMULARY ITEM 160 MG PO ×2 (08:30→20:10)
--- NOTE | 2025-02-05 09:19 | W.PN.CARDCBS ---
Addendum entered and electronically signed by Herbert Stevens DO 02/05/25 10:20:
I saw and examined the patient.
The Ware Tester's note was reviewed and I agree with the note.
Comment:
Plan:
Continue IV diuresis with Lasix 80 mg twice daily.
Over 1300 cc out over the last 24 hours with the addition of Zaroxolyn
Would add Zaroxolyn again today and continue 5 mg daily
Continue amiodarone for rhythm control and Eliquis for stroke prophylaxis 6 in the setting of paroxysmal atrial tachycardia given elevated [id number] score.
Recent echo reviewed and showed preserved LV function with no significant valve disease
Continue supportive care with antibiotics for bilateral lower extremity cellulitis
He continues to have poor insight into his complex medical conditions.
Original Note:
Today's Communication / Plan
-
continue IV lasix 80mg BID with zaroxolyn 5mg daily
continue amio, toprol, eliquis
PT
Impression / Plan
-
PCP: Tomás Leslie
Government Professor: Dr. Mcclain
Impression:
Presented 02/02/2025 with SOB, weight gain, LE edema
b/l LE cellulitis
Recurrent, symptomatic pleural effusions with thoracenteses approximately once per week (dose of Brukinsa had been decreased in past as felt to be contributing to effusions)
s/p thoracenteses 12/15/2022, 02/26/2023, 04/09/2023, 04/30/2023, 06/01/2023, 07/03/2023, 07/27/2023, 08/16/2023, 09/12/2023, 10/05/2023, 11/02/2023, 11/23/2023, 12/19/2023, 01/04/2024, 01/31/2024, 02/11/2024, 02/25/2024, 03/05/2024, 03/14/2024, 03/24/2024,
04/01/2024, 04/09/2024, 04/23/2024, 04/30/2024, 05/06/2024, 05/13/24, 05/29/2024, 06/13/2024, 07/08/2024, 08/15/2024, 10/16/2024, 12/16/2024, 01/07/2025, 01/20/2025, 01/27/2025, 02/02/2025
Acute on chronic HFpEF, proBNP 2620
Paroxysmal atrial tachycardia vs Atrial fibrillation w/ RVR
h/o Paroxysmal atrial tachycardia
CLL on Brukinsa since 01/2023 and more recently Gazyva followed by [facility]
PACs
hypertension
hyperlipidemia
history of stroke in 10/2019
GERD
Hypoalbuminemia, mild
Chronic anemia
ECHO 12/07/22: EF 60 to 65%, technically difficult study, no significant valvular pathology, trivial pericardial effusion, pleural effusion noted, IVC dilated and does not collapse
ECHO 05/13/24: EF 60 to 65%, mild concentric LVH, aortic sclerosis, trace AR, top normal size, pleural effusion, enlarged RV size with reduced RV systolic function
Echo 02/02/2025: TDS, EF 50-55%, no gross valvular abnormalities, no pericardial effusion, no significant change from prior study
Plan:
-Presented 02/02/2025 with shortness of breath, weight gain, and increased lower extremity edema despite increasing outpatient torsemide.
-S/p L thoracentesis 02/02 with 1400 cc removed.
-he remains grossly volume overloaded.
-he responded well to IV Lasix 80 mg twice daily with metolazone 5 mg, continue today. Creatinine up slightly to 1.2. May need to allow for degree of renal insufficiency to keep patient euvolemic
-Continue compression stockings
-echo 01/2025 was without significant change, reviewed with patient and 02/04
-he has known PAT. was started on amiodarone 02/02 with improvement in burden. QTc stable by review of EKG 02/05. reports his HRs have been rapid as OP. we discussed this could be contributing to his issues with fluid retention. currently in SR
on review of tele. Continue low-dose Toprol
-given elevated [id number] score including history of stroke, was transitioned to Eliquis. Aspirin stopped to reduce risk of bleeding
-Agree with antibiotics for bilateral lower extremity cellulitis.
-he states he is leaving on Sunday. PT reports need for SNF upon DC however patient refuses
-d/w nursing
HPI: Shiv is an 79-year-old male with past medical history of CLL on Brukinsa since 01/2023, recurrent pleural effusions with frequent thoracenteses, hypertension, hyperlipidemia, prior stroke 10/2019, paroxysmal atrial tachycardia, frequent PACs,
and GERD. Presented to [facility] ER for evaluation of increased shortness of breath and edema. He was seen in the cardiology office on 01/26/2025 and appeared volume overloaded, so he was placed on higher dose torsemide 40 mg twice daily. Did discuss
at that time that he would possibly need admission given symptoms. He did not improve with higher dose torsemide, so came to ER 02/02. Chest x-ray noted left pleural effusion and he underwent thoracentesis with 1400 cc removed. He notes
improvement in his breathing following this, however still has significant lower extremity edema. His weight has been slowly increasing as outpatient. Previously he was between 172 pounds, and weight has climbed to 179 pounds. Bilateral lower
extremity cellulitis noted on exam. He has been started on antibiotics by primary service. Cardiology consulted due to possible atrial fibrillation on the monitor. He previously has had a questionable history of atrial fibrillation, but
historically has been felt to be SR with frequent PACs and brief runs of atrial tachycardia. Remains on 2 L NC at this time, and is comfortably lying on stretcher in ER. Denies any chest pain.
Progress Note - Government Professor
Subjective
Date of Service: February 05, 2025
He reports he did not have significant urine output overnight, however this is contradicting to nursing report
Objective
Labs:
02/03/25 04:16
02/05/25 02:43
Labs
Hgb 11.8 g/dL (13.0-18.0) L 02/03/25 04:16
Hct 35.4 % (39.0-52.0) L 02/03/25 04:16
Plt Count 283 10^3/uL (130-400) 02/03/25 04:16
Sodium 134 mmol/L (135-145) L 02/05/25 02:43
Potassium 4.0 mmol/L (3.5-5.1) 02/05/25 02:43
BUN 30 mg/dl (9-20) H 02/05/25 02:43
Creatinine 1.2 mg/dL (0.7-1.3) 02/05/25 02:43
Glucose 99 mg/dl (70-99) 02/05/25 02:43
Troponins
02/02/25
13:22
Troponin I 0.023
Vital Signs and I&O:
Vital Signs
Temp Pulse Resp BP Pulse Ox
98.3 F 89 20 115/77 97
02/05/25 07:26 02/05/25 08:30 02/05/25 07:26 02/05/25 08:30 02/05/25 08:32
Vital Signs
Temp Pulse Resp BP Pulse Ox
98.3 F 89 20 115/77 97
02/05/25 07:26 02/05/25 08:30 02/05/25 07:26 02/05/25 08:30 02/05/25 08:32
Intake & Output
02/03/25 02/04/25 02/05/25 02/06/25
07:59 07:59 07:59 07:59
Intake Total 200 / 560 1600 / 1600 1200 / 1200
Output Total 500 / 500 1230 / 1230 2750 / 2750
Balance -300 / 60 370 / 370 -1550 / -1550
Physical Exam
Physical Exam
GEN: No distress, awake, alert, oriented x3. sitting in chair
HEENT: supple, anicteric, mmm, eomi
LUNGS: Crackles B/L, no wheezes
CV: Reg, S1/S2, no murmur
ABD: soft, BS+, NT/ND
EXT: No cyanosis, clubbing. 4+ edema of B/L LE although less tense than yesterday and 4+ edema of LUE with compression stockings in place
NEURO: Gross non-focal
SKIN: Warm, pink, dry. No rash
--- NOTE | 2025-02-05 09:42 | PTCARENOTE ---
Patient received at change of shift out of bed to the chair. Denies pain. Reports dyspnea on exertion and at rest. Initially on 2L NC, weaned to room air, SaO2 96-97%. SR on telemetry. Tubigrips maintained on LUE, LLE, and RLE, per patient he likes
how they feel and would like them on 11/09, skin inspected underneath, red/brown but intact. Plan of care discussed with patient. Call hull within reach. Care ongoing.
--- NOTE | 2025-02-05 11:07 | CM ---
Pricing on Eliquis through the patient's [employer], is covered at $0 copay, patient has met his $2000 deductible. Eliquis is a tier 3 medication
--- NOTE | 2025-02-05 12:13 | W.PN.HOSP.TC ---
Today's Communication/Plan
-
Continue with IV Lasix 80 mg twice daily
Zaroxolyn added
Continue with Eliquis
Case management to start dispo process
Assessment / Plan
Assessment / Plan
General: Well Developed, Well Nourished, No Apparent Distress, Comfortable and Conversant
HEENT: NormoCephalic, Nose Appears Normal and Ears Appear Normal
Respiratory: dec bs
Cardiac: S1/S2, Irregular Rhythm
GI: Soft, Non Tender, Non Distended and Normal Bowel Sounds
Musculoskeletal: No Clubbing and No Cyanosis
Skin: Warm, IV/Catheter Site and Other (BLLE erythema and edema-improved
Neuro: Awake and AO x 3
Psych: Calm and Intact Judgment/Insight
#Acute hypoxic respiratory insufficiency
#Acute on chronic diastolic heart failure
Echocardiogram EF of 50 to 55%. Normal ventricular size and function. No gross valvular normality. No pericardial effusion. No significant change compared to prior 05/13
Continue with 80 mg of Lasix twice daily. Dose of Zaroxolyn added. Plan to continue daily
Requires invasive monitoring.
Strict I's and O's. Daily weights
Wean oxygen as tolerated-seen on room air
Cardiology following
#Recurrent pleural effusions likely suspected secondary to CLL versus possibility of heart failure
Status post thoracentesis 02/02
Follow-up on the fluid culture results preliminary negative
Cytology was not sent
Hopefully with diuresis decrease the frequency of thoracentesis
#Hypokalemia
Replete and monitor
#Paroxsymal Atrial tachycardia versus atrial fibrillation with RVR
Status post Cardizem drip-held further due to hypotension
EKG 02/05/2024 showing atrial fibrillation
Started on amiodarone 200 mg 3 times daily
Eliquis 5mg BID started
#Bilateral lower extremity venous stasis
Improvement with diuresis
#Primary hypertension
Monitor blood pressure closely with diuresis
#Hyperlipidemia continue with statin
CLL continue with outpatient follow-up
History of CVA continue with aspirin
DVT prophylaxis-start Lovenox
Full code
Updated spouse over the phone in details. Advised spouse to bring in patient advanced directive.
PT recs SNF. CM aware.
Anticipated Discharge: 24 - 48 hours
Subjective/Interval History
-
Date of Service: February 05, 2025
state feeling better
passed alot of urine yesterday evening
Objective Data
-
Labs:
Laboratory Results
02/05/25
02:43
Sodium 134 L
Potassium 4.0
Chloride 95 L
Carbon Dioxide 32 H
BUN 30 H
Creatinine 1.2
Glucose 99
Calcium 8.3 L
Vital Signs:
Vital Signs
Temp Pulse Resp BP Pulse Ox
98.3 F 78 17 112/73 94
02/05/25 11:38 02/05/25 11:42 02/05/25 11:38 02/05/25 11:42 02/05/25 11:42
I&O
02/04/25 02/05/25 02/06/25
06:59 06:59 06:59
Intake Total 1600 / 1600 1200 / 1200
Output Total 1230 / 1230 2750 / 2750 650 / 650
Balance 370 / 370 -1550 / -1550 -650 / -650
--- NOTE | 2025-02-05 12:59 | CM ---
Chart reviewed. Patient is independent of ADLS, lives with his in a [address], 4 [address], ambulates with a SPC. PT evaluation recommending SNF. Patient and his are refusing SNF. They are agreeable to VN. They have used [facility] and
prefer to use them again. Referral sent to [facility]. CM to follow
[2025-02-05] MEDS: ZAROXOLYN 5 MG PO (15:35)
--- NOTE | 2025-02-05 19:00 | PTCARENOTE ---
report received from previous RN, walking rounds done. pt in chair, AAOx4. pt denies any pain at this time. AFIB on monitor, HR 70s-80s. +peripheral pulses. edema noted to LUE and B/L LEs. B/L breath sounds present. POX 93% on room air. +BS. pt
voids in urinal without difficulty, CYU. PIV intact and patent. see worklist for full assessment, VS, and interventions.
--- NOTE | 2025-02-05 19:00 | PTCARENOTE ---
report received from previous RN, walking rounds done. pt in chair, AAOx4. pt denies any pain at this time. SR on monitor, HR 70s-80s. +peripheral pulses. edema noted to LUE and B/L LEs. B/L breath sounds present. POX 93% on room air. +BS. pt voids
in urinal without difficulty, CYU. PIV intact and patent. see worklist for full assessment, VS, and interventions.
[2025-02-05] MEDS: CRESTOR 40 MG PO (22:23)
[2025-02-05] MEDS: XALATAN OPHTHALMIC SOLUTION 1 DROP LEFT EYE (22:24)
[2025-02-06] VITALS (8 sets, daily range): BP systolic 95–118; BP diastolic 68–86; BMI 28.5
[2025-02-06 03:42] LABS: Blood Urea Nitrogen 31 mg/dl (9-20); Calcium 8.2 mg/dl (8.4-10.2); Carbon Dioxide 34 mmol/L (22-30); Chloride 91 mmol/L (98-107); Estimated Creatinine Clearance 37 ml/min; Glucose 105 mg/dl (70-99); Potassium 3.8 mmol/L (3.5-5.1); Sodium 133 mmol/L (135-145); eGFR 50.81
--- NOTE | 2025-02-06 05:14 | PTCARENOTE ---
Received pt from nightshift RN at 2300 resting in bed. pt fluctuating between SR w/ PAC's and Afib on the monitor, HR 80's-120's. pt denies any CP or SOB at this time. AM EKG obtained w/ result of Accelerated Junctional Rhythm with retrograde
conduction. Sudha Perez NP made aware, no further orders at this time. AM labs obtained and sent. Fall risk precautions maintained, bed alarm on and audible. Encouraged pt to call RN for assistance ambulating and with any questions/concerns.
Call hull within reach.
[2025-02-06] MEDS: ANCEF 5 IV ×3 (05:26→21:27)
[2025-02-06] MEDS: LASIX 80 MG IV ×2 (09:11→15:47)
[2025-02-06] MEDS: PACERONE 200 MG PO ×3 (09:11→23:03)
[2025-02-06] MEDS: TOPROL XL 12.5 MG PO (09:11)
[2025-02-06] MEDS: ELIQUIS 5 MG PO ×2 (09:12→19:22)
[2025-02-06] MEDS: KCL 40 MEQ PO (09:12)
[2025-02-06 09:19] LABS: Magnesium 2.0 mg/dl (1.6-2.3)
[2025-02-06] MEDS: NON-FORMULARY ITEM 160 MG PO ×2 (09:29→19:22)
--- NOTE | 2025-02-06 09:57 | PTCARENOTE ---
Assumed care at 0700. 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 LUE +4 edema, warm, dark red, weak radial pulse. +3 b/l lower leg pitting edema, skin dry brown skin,
Tubigrip stocking applied. Refused LUE Tubigrip hose. POX on room air 92%, crackles left base. Using urinal at bedside. bed and chair alarms audible, call hull in reach
--- NOTE | 2025-02-06 10:20 | W.PN.CARDCBS ---
Addendum entered and electronically signed by Carl Duggan MD 02/06/25 12:34:
I saw and examined the patient.
The Industrial Sales Manager's note was reviewed and I agree with the note.
Comment:
GEN: No distress, awake, Ox3
HEENT: supple, anicteric, mmm
LUNGS: scatt rhonchi
CV: Reg, S1/S2, 02/24 syst LSB, no gallop
ABD: soft, BS+, NT/ND
EXT: ++ edema
NEURO: Gross non-focal
SKIN: No rash
PLan:
Remains volume overloaded. Creatinine up to 1.4. Weight is down some. Will hold metolazone and continue Lasix 80 mg IV twice daily. Follow creatinine.
May need to allow for some azotemia to maintain euvolemic status.
Continue amiodarone and Eliquis. Remains in sinus rhythm.
Continue Toprol.
Would hold on [facility] with history of cellulitis and CLL
Original Note:
Today's Communication / Plan
-
Continue IV Lasix. Hold metolazone today due to uptrending creatinine
May need to allow for degree of renal insufficiency to maintain euvolemia
PAT burden decreasing. Continue amiodarone, Eliquis
Impression / Plan
-
PCP: Tomás Leslie
Shot Bagger: Dr. Mcclain
Impression:
Presented 02/02/2025 with SOB, weight gain, LE edema
b/l LE cellulitis
Recurrent, symptomatic pleural effusions with thoracenteses approximately once per week (dose of Brukinsa had been decreased in past as felt to be contributing to effusions)
s/p thoracenteses 12/15/2022, 02/26/2023, 04/09/2023, 04/30/2023, 06/01/2023, 07/03/2023, 07/27/2023, 08/16/2023, 09/12/2023, 10/05/2023, 11/02/2023, 11/23/2023, 12/19/2023, 01/04/2024, 01/31/2024, 02/11/2024, 02/25/2024, 03/05/2024, 03/14/2024, 03/24/2024,
04/01/2024, 04/09/2024, 04/23/2024, 04/30/2024, 05/06/2024, 05/13/24, 05/29/2024, 06/13/2024, 07/08/2024, 08/15/2024, 10/16/2024, 12/16/2024, 01/07/2025, 01/20/2025, 01/27/2025, 02/02/2025
Acute on chronic HFpEF, proBNP 2620
Paroxysmal atrial tachycardia vs Atrial fibrillation w/ RVR
h/o Paroxysmal atrial tachycardia
CLL on Brukinsa since 01/2023 and more recently Gazyva followed by [facility]
PACs
hypertension
hyperlipidemia
history of stroke in 10/2019
GERD
Hypoalbuminemia, mild
Chronic anemia
ECHO 12/07/22: EF 60 to 65%, technically difficult study, no significant valvular pathology, trivial pericardial effusion, pleural effusion noted, IVC dilated and does not collapse
ECHO 05/13/24: EF 60 to 65%, mild concentric LVH, aortic sclerosis, trace AR, top normal size, pleural effusion, enlarged RV size with reduced RV systolic function
Echo 02/02/2025: TDS, EF 50-55%, no gross valvular abnormalities, no pericardial effusion, no significant change from prior study
Plan:
- Presented 02/02/2025 with shortness of breath, weight gain, and increased lower extremity edema despite increasing outpatient torsemide.
- S/p L thoracentesis 02/02 with 1400 cc removed.
- He remains grossly volume overloaded on exam, however with diuresis creatinine has up trended, 1.4 on 02/06. Will hold metolazone today and reassess creatinine in a.m. Continue IV Lasix. May need to allow for degree of renal insufficiency to
keep patient euvolemic
- Continue compression stockings
- echo 01/2025 was without significant change, reviewed with patient and 02/04
- he has known PAT. was started on amiodarone 02/02 with significant improvement in burden. reports his HRs have been rapid as OP. we discussed this could be contributing to his issues with fluid retention. currently in SR on review of tele.
Continue low-dose Toprol
- given elevated [id number] score including history of stroke, was transitioned to Eliquis this admission. Aspirin stopped to reduce risk of bleeding
- Continue treatment of bilateral lower extremity cellulitis per primary service
- he states he is leaving on Sunday. PT reports need for SNF upon DC however patient refuses
- He is high risk for readmission. Prognosis appears poor
- Discussed with nursing
HPI: Shiv is an 79-year-old male with past medical history of CLL on Brukinsa since 01/2023, recurrent pleural effusions with frequent thoracenteses, hypertension, hyperlipidemia, prior stroke 10/2019, paroxysmal atrial tachycardia, frequent PACs,
and GERD. Presented to [facility] ER for evaluation of increased shortness of breath and edema. He was seen in the cardiology office on 01/26/2025 and appeared volume overloaded, so he was placed on higher dose torsemide 40 mg twice daily. Did discuss
at that time that he would possibly need admission given symptoms. He did not improve with higher dose torsemide, so came to ER 02/02. Chest x-ray noted left pleural effusion and he underwent thoracentesis with 1400 cc removed. He notes
improvement in his breathing following this, however still has significant lower extremity edema. His weight has been slowly increasing as outpatient. Previously he was between 172 pounds, and weight has climbed to 179 pounds. Bilateral lower
extremity cellulitis noted on exam. He has been started on antibiotics by primary service. Cardiology consulted due to possible atrial fibrillation on the monitor. He previously has had a questionable history of atrial fibrillation, but
historically has been felt to be SR with frequent PACs and brief runs of atrial tachycardia. Remains on 2 L NC at this time, and is comfortably lying on stretcher in ER. Denies any chest pain.
Progress Note - Shot Bagger
Subjective
Date of Service: February 06, 2025
Reports feeling better. Breathing improved.
Objective
Labs:
02/03/25 04:16
02/06/25 02:36
Labs
Hgb 11.8 g/dL (13.0-18.0) L 02/03/25 04:16
Hct 35.4 % (39.0-52.0) L 02/03/25 04:16
Plt Count 283 10^3/uL (130-400) 02/03/25 04:16
Sodium 133 mmol/L (135-145) L 02/06/25 02:36
Potassium 3.8 mmol/L (3.5-5.1) 02/06/25 02:36
BUN 31 mg/dl (9-20) H 02/06/25 02:36
Creatinine 1.4 mg/dL (0.7-1.3) H 02/06/25 02:36
Glucose 105 mg/dl (70-99) H 02/06/25 02:36
Vital Signs and I&O:
Vital Signs
Temp Pulse Resp BP Pulse Ox
98 F 89 20 104/72 92
02/06/25 06:42 02/06/25 08:00 02/06/25 06:42 02/06/25 06:42 02/06/25 09:27
Vital Signs
Temp Pulse Resp BP Pulse Ox
98 F 89 20 104/72 92
02/06/25 06:42 02/06/25 08:00 02/06/25 06:42 02/06/25 06:42 02/06/25 09:27
Intake & Output
02/04/25 02/05/25 02/06/25 02/07/25
07:59 07:59 07:59 07:59
Intake Total 1600 / 1600 1200 / 1200 680 / 680
Output Total 1230 / 1230 2750 / 2750 2575 / 2575
Balance 370 / 370 -1550 / -1550 -1895 / -1895
Physical Exam
Physical Exam
GEN: No distress, awake, alert, oriented x3. sitting in chair
HEENT: supple, anicteric, mmm, eomi
LUNGS: Few crackles bilateral bases, no wheezes
CV: Reg, S1/S2, no murmur
ABD: soft, BS+, NT/ND
EXT: No cyanosis, clubbing. 4+ edema of B/L LE, although improving. Right upper extremity with 4+ edema
NEURO: Gross non-focal
SKIN: Warm, pink, dry. No rash
--- NOTE | 2025-02-06 10:56 | CM ---
Chart reviewed. Patient is independent of ADLS, lives with his in a 1 [address], 4 [address], ambulates with a SPC. PT evaluation recommending SNF. Patient and refusing and want VN. Patient has used [facility] in the past and wants to use
them. Referral sent to [facility]. Plan is for the patient to return home with his and [facility]. CM to follow
--- NOTE | 2025-02-06 11:16 | W.PN.HOSP.TC ---
Today's Communication/Plan
-
Continue with IV diuresis
Monitor creatinine closely
Cardiology following
Assessment / Plan
Assessment / Plan
General: Well Developed, Well Nourished, No Apparent Distress, Comfortable and Conversant
HEENT: NormoCephalic, Nose Appears Normal and Ears Appear Normal
Respiratory: dec bs
Cardiac: S1/S2, Irregular Rhythm
GI: Soft, Non Tender, Non Distended and Normal Bowel Sounds
Musculoskeletal: No Clubbing and No Cyanosis
Skin: Warm, IV/Catheter Site and Other (BLLE erythema and edema-improved
Neuro: Awake and AO x 3
Psych: Calm and Intact Judgment/Insight
#Acute hypoxic respiratory insufficiency
#Acute on chronic diastolic heart failure
Echocardiogram EF of 50 to 55%. Normal ventricular size and function. No gross valvular normality. No pericardial effusion. No significant change compared to prior 05/13
Continue with 80 mg of Lasix twice daily. Bump in creatinine and Zaroxolyn held for now.
Requires invasive monitoring.
Strict I's and O's. Daily weights-losing weight
Wean oxygen as tolerated-seen on room air
Cardiology following
#Acute kidney injury likely secondary to diuresis versus cardiorenal syndrome
Holding Zaroxolyn for now
Monitor creatinine closely
#Recurrent pleural effusions likely suspected secondary to CLL versus possibility of heart failure
Status post thoracentesis 02/02
Follow-up on the fluid culture results preliminary negative
Cytology was not sent
Hopefully with diuresis decrease the frequency of thoracentesis
#Hypokalemia
Replete and monitor
#Paroxsymal Atrial tachycardia versus atrial fibrillation with RVR
Status post Cardizem drip-held further due to hypotension
EKG 02/05/2024 showing atrial fibrillation
Started on amiodarone 200 mg 3 times daily
Eliquis 5mg BID started
#Bilateral lower extremity venous stasis
Improvement with diuresis
#Primary hypertension
Monitor blood pressure closely with diuresis
#Hyperlipidemia continue with statin
CLL continue with outpatient follow-up
History of CVA continue with aspirin
#Mild hyponatremia
Monitor for now
DVT prophylaxis-start Lovenox
Full code
PT recs SNF. CM aware. Patient and spouse refusing.
Anticipated Discharge: > 48 hours
Subjective/Interval History
-
Date of Service: February 06, 2025
on room air
states edema is improving
Objective Data
-
Labs:
Laboratory Results
02/06/25
02:36
Sodium 133 L
Potassium 3.8
Chloride 91 L
Carbon Dioxide 34 H
BUN 31 H
Creatinine 1.4 H
Glucose 105 H
Calcium 8.2 L
Vital Signs:
Vital Signs
Temp Pulse Resp BP Pulse Ox
98 F 89 20 104/72 92
02/06/25 06:42 02/06/25 08:00 02/06/25 06:42 02/06/25 06:42 02/06/25 09:27
I&O
02/05/25 02/06/25 02/07/25
06:59 06:59 06:59
Intake Total 1200 / 1200 680 / 680
Output Total 2750 / 2750 2575 / 2575
Balance -1550 / -1550 -1895 / -1895
--- NOTE | 2025-02-06 18:13 | PTCARENOTE ---
Patient in chair. Tolerated leg compression. A-fib 70-80's at rest. Edema unchanged. Using urinal. Denies shortness of breath 94% on room air, VSS. bed and chair alarms audible, call hull in reach
[2025-02-06] MEDS: CRESTOR 40 MG PO (21:26)
[2025-02-06] MEDS: XALATAN OPHTHALMIC SOLUTION 1 DROP LEFT EYE (21:31)
--- NOTE | 2025-02-07 00:50 | PTCARENOTE ---
Received pt at change of shift resting in bed. Sinus arrythmia/SR w/ PAC's, afib on the monitor. HR 70's-90's. pt tolerating compression therapy, but asking for break from tubigrips for HS. Fall risk precautions maintained, bed alarm on and audible.
Urinal provided to pt at bedside. Encouraged pt to call RN for assistance ambulating and with any questions/concerns. Call hull within reach.
[2025-02-07 02:24] VITALS: BP 92/60
[2025-02-07 03:22] LABS: Blood Urea Nitrogen 32 mg/dl (9-20); Calcium 8.2 mg/dl (8.4-10.2); Carbon Dioxide 36 mmol/L (22-30); Chloride 89 mmol/L (98-107); Estimated Creatinine Clearance 34 ml/min; Glucose 110 mg/dl (70-99); Potassium 3.4 mmol/L (3.5-5.1); Sodium 132 mmol/L (135-145); eGFR 46.77
[2025-02-07 04:30] VITALS: BMI 27.8
[2025-02-07] MEDS: ANCEF 5 IV (05:37)
[2025-02-07] MEDS: FLUSH (NSS) 1 FLUSH IV (05:37)
[2025-02-07] MEDS: KCL 40 MEQ PO ×2 (06:06→08:41)
--- NOTE | 2025-02-07 08:17 | W.PN.CARDCBS ---
Addendum entered and electronically signed by Alex Costello MD 02/07/25 09:30:
Patient seen, interviewed and examined by me.
Well-appearing, no acute distress
Regular rate and rhythm with normal S1 and S2, no S3 no S4. There is a grade 1/6 apical holosystolic murmur and no rubs. PMI is normally placed.
Lungs are clear to auscultation bilaterally without wheezes rales or rhonchi.
Abdomen soft nontender nondistended with normoactive bowel sounds
Extremities bilateral wraps lower extremities and edema appears much improved.
Neurologic exam is grossly nonfocal.
We have been diuresing him for heart failure with preserved ejection fraction.
While he did present with evidence of intravascular volume overload he also has extravascular fluid accumulation making assessment of his intravascular volume status somewhat difficult.
Initial proBNP 2620 with IV Lasix diuresis his weight is down 11 pounds from admission. Lower extremity edema much improved BUN and creatinine have bumped upwards.
At this point he may be intravascularly euvolemic or even slightly dry.
He is adamant about going home today, telling me there is no choice to even consider that he will be staying today
I would then discharge him back on his outpatient dose of torsemide
Correct electrolyte imbalance
He will need close follow-up of renal function and electrolytes, will need basic metabolic profile and magnesium checked early next week
He will need close follow-up with his primary care physician
We will also arrange follow-up with his primary humanities professor, Dr. Mcclain
Original Note:
Today's Communication / Plan
-
Continue IV lasix 80mg BID while admitted
Follow creat
Continue Toprol, amiodarone, Eliquis
Follow up has been arranged.
Impression / Plan
-
PCP: Tomás Leslie
Gut Puller: Dr. Mcclain
Impression:
Presented 02/02/2025 with SOB, weight gain, LE edema
b/l LE cellulitis
Recurrent, symptomatic pleural effusions with thoracenteses approximately once per week (dose of Brukinsa had been decreased in past as felt to be contributing to effusions)
s/p thoracenteses 12/15/2022, 02/26/2023, 04/09/2023, 04/30/2023, 06/01/2023, 07/03/2023, 07/27/2023, 08/16/2023, 09/12/2023, 10/05/2023, 11/02/2023, 11/23/2023, 12/19/2023, 01/04/2024, 01/31/2024, 02/11/2024, 02/25/2024, 03/05/2024, 03/14/2024, 03/24/2024,
04/01/2024, 04/09/2024, 04/23/2024, 04/30/2024, 05/06/2024, 05/13/24, 05/29/2024, 06/13/2024, 07/08/2024, 08/15/2024, 10/16/2024, 12/16/2024, 01/07/2025, 01/20/2025, 01/27/2025, 02/02/2025
Acute on chronic HFpEF, proBNP 2620
Paroxysmal atrial tachycardia vs Atrial fibrillation w/ RVR
CLL on Brukinsa since 01/2023 and more recently [facility] followed by [facility]
PACs
hypertension
hyperlipidemia
history of stroke in 10/2019
GERD
Hypoalbuminemia, mild
Chronic anemia
ECHO 12/07/22: EF 60 to 65%, technically difficult study, no significant valvular pathology, trivial pericardial effusion, pleural effusion noted, IVC dilated and does not collapse
ECHO 05/13/24: EF 60 to 65%, mild concentric LVH, aortic sclerosis, trace AR, top normal size, pleural effusion, enlarged RV size with reduced RV systolic function
Echo 02/02/2025: TDS, EF 50-55%, no gross valvular abnormalities, no pericardial effusion, no significant change from prior study
Plan:
- Presented 02/02/2025 with shortness of breath, weight gain, and increased lower extremity edema despite increasing outpatient torsemide.
- Diuresing with IV lasix 80mg BID and was started on metolazone to augment diuresis. Metolazone held 02/06 due to rising creat.
- Still grossly volume overloaded on exam. Weight downtrending, down 4lbs overnight to 167 lbs on 02/07.
- Creat up to 1.5.
- He reports he would like to leave today. Explained that he is still volume overloaded and has worsening renal function, but he states he can 'do this at home'. Again explained that IV lasix is stronger than oral lasix and he had failed to improve
w/ increasing PO torsemide prior to admission. Also discussed concern for kidney function. He still wishes to leave.
- Would continue IV lasix 80mg BID while admitted.
- s/p L thoracentesis 02/02 with 1400 cc removed.
- echo 01/2025 was without significant change as noted above.
- he has known PAT w/ questionable history of atrial fibrillation. Started on amiodarone 02/02 with significant improvement in burden.
- Currently in SR on review of tele. Continue Toprol 12.5mg daily. Would decrease amiodarone to 200mg BID at time of discharge and should continue for 1 month before decreasing to 200mg daily thereafter.
- Given elevated [id number] score including history of stroke, was transitioned to Eliquis this admission. Aspirin stopped to reduce risk of bleeding
- Continue treatment of bilateral lower extremity cellulitis per primary service
- PT reports need for SNF upon DC however patient refuses. He is high risk for readmission. Prognosis appears poor
- K 3.4. Agree w/ repletion.
- Follow up has been arranged.
HPI: Shiv is an 79-year-old male with past medical history of CLL on Brukinsa since 01/2023, recurrent pleural effusions with frequent thoracenteses, hypertension, hyperlipidemia, prior stroke 10/2019, paroxysmal atrial tachycardia, frequent PACs,
and GERD. Presented to [facility] for evaluation of increased shortness of breath and edema. He was seen in the cardiology office on 01/26/2025 and appeared volume overloaded, so he was placed on higher dose torsemide 40 mg twice daily. Did discuss
at that time that he would possibly need admission given symptoms. He did not improve with higher dose torsemide, so came to ER 02/02. Chest x-ray noted left pleural effusion and he underwent thoracentesis with 1400 cc removed. He notes
improvement in his breathing following this, however still has significant lower extremity edema. His weight has been slowly increasing as outpatient. Previously he was between 172 pounds, and weight has climbed to 179 pounds. Bilateral lower
extremity cellulitis noted on exam. He has been started on antibiotics by primary service. Cardiology consulted due to possible atrial fibrillation on the monitor. He previously has had a questionable history of atrial fibrillation, but
historically has been felt to be SR with frequent PACs and brief runs of atrial tachycardia. Remains on 2 L NC at this time, and is comfortably lying on stretcher in ER. Denies any chest pain.
Progress Note - Gut Puller
Subjective
Date of Service: February 07, 2025
Despite appearing significantly volume overloaded, he reports no complaints.
Objective
Labs:
02/03/25 04:16
02/07/25 02:31
Labs
Hgb 11.8 g/dL (13.0-18.0) L 02/03/25 04:16
Hct 35.4 % (39.0-52.0) L 02/03/25 04:16
Plt Count 283 10^3/uL (130-400) 02/03/25 04:16
Sodium 132 mmol/L (135-145) L 02/07/25 02:31
Potassium 3.4 mmol/L (3.5-5.1) L 02/07/25 02:31
BUN 32 mg/dl (9-20) H 02/07/25 02:31
Creatinine 1.5 mg/dL (0.7-1.3) H 02/07/25 02:31
Glucose 110 mg/dl (70-99) H 02/07/25 02:31
Vital Signs and I&O:
Vital Signs
Temp Pulse Resp BP Pulse Ox
98.1 F 92 18 92/60 95
02/07/25 02:24 02/07/25 06:00 02/07/25 02:24 02/07/25 02:24 02/07/25 02:24
Vital Signs
Temp Pulse Resp BP Pulse Ox
98.1 F 92 18 92/60 95
02/07/25 02:24 02/07/25 06:00 02/07/25 02:24 02/07/25 02:24 02/07/25 02:24
Intake & Output
02/05/25 02/06/25 02/07/25 02/08/25
06:59 06:59 06:59 06:59
Intake Total 1200 / 1200 680 / 680 720 / 720
Output Total 2750 / 2750 2575 / 2575 2325 / 2325
Balance -1550 / -1550 -1895 / -1895 -1605 / -1605
Physical Exam
Physical Exam
GEN: No distress, awake, alert, oriented x3
HEENT: mmm
LUNGS: Few crackles bilateral bases, no wheezes
CV: Reg, S1/S2, no murmur
EXT: No cyanosis, clubbing. 3+ edema of B/L LE, RUE with 4+ edema
NEURO: Gross non-focal
SKIN: Warm, pink, dry. No rash
[2025-02-07 08:20] VITALS: BP 90/54
[2025-02-07] MEDS: ELIQUIS 5 MG PO (08:41)
[2025-02-07] MEDS: PACERONE 200 MG PO (08:41)
[2025-02-07] MEDS: TOPROL XL 12.5 MG PO (08:41)
[2025-02-07 08:43] VITALS: BP 109/85
[2025-02-07] MEDS: NON-FORMULARY ITEM 160 MG PO (08:46)
[2025-02-07] MEDS: LASIX 80 MG IV (09:56)
[2025-02-07 09:58] VITALS: BP 105/71
--- NOTE | 2025-02-07 11:35 | W.PN.HOSP.TC ---
Today's Communication/Plan
-
Stop IV diuresis
P.o. home regimen
Amiodarone Eliquis
Refusing SNF
Assessment / Plan
Assessment / Plan
General: Well Developed, Well Nourished, No Apparent Distress, Comfortable and Conversant
HEENT: NormoCephalic, Nose Appears Normal and Ears Appear Normal
Respiratory: dec bs, room air
Cardiac: S1/S2,
GI: Soft, Non Tender, Non Distended and Normal Bowel Sounds
Musculoskeletal: No Clubbing and No Cyanosis
Skin: Warm, IV/Catheter Site and Other (BLLE erythema and edema-improved
Neuro: Awake and AO x 3
Psych: Calm and Intact Judgment/Insight
#Acute hypoxic respiratory insufficiency
#Acute on chronic diastolic heart failure
Echocardiogram EF of 50 to 55%. Normal ventricular size and function. No gross valvular normality. No pericardial effusion. No significant change compared to prior 05/13
Bump in creatinine noted. Per cardiology okay to transition to p.o. diuretics. Repeat BMP as outpatient.
Requires invasive monitoring.
Strict I's and O's. Daily weights-losing weight
Wean oxygen as tolerated-seen on room air
Cardiology following
#Acute kidney injury likely secondary to overdiuresis
Plan to discontinue Zaroxolyn and IV diuresis.
#Recurrent pleural effusions likely suspected secondary to CLL versus possibility of heart failure
Status post thoracentesis 02/02
Follow-up on the fluid culture results remains negative.
Cytology was not sent
Hopefully with diuresis decrease the frequency of thoracentesis
Recommended to spouse to discuss with oncologist for cytology if needed during next paracentesis.
#Hypokalemia
Replete and monitor
#Paroxsymal Atrial tachycardia versus atrial fibrillation with RVR
Status post Cardizem drip-held further due to hypotension
EKG 02/05/2024 showing atrial fibrillation
Started on amiodarone 200 mg 3 times daily with plan to continue 200 mg twice daily on discharge for 1 month then daily thereafter
Eliquis 5mg BID started
#Bilateral lower extremity venous stasis
Improvement with diuresis
#Primary hypertension
Monitor blood pressure closely with diuresis
#Hyperlipidemia continue with statin
CLL continue with outpatient follow-up
History of CVA continue with aspirin
#Mild hyponatremia
Monitor for now
DVT prophylaxis-start Lovenox
Full code
PT recs SNF. CM aware. Patient and spouse refusing.
More than 30 minutes spent in discharge including
Final examination of the patient
Summarizing hospital stay
Instructions for continuing care to all relevant caregivers
Preparation of discharge records, prescriptions, and referral forms
Total time spent (in minutes): 55
Anticipated Discharge: Today
Subjective/Interval History
-
Date of Service: February 07, 2025
States he feels dry
Wants to go home today
Objective Data
-
Labs:
Laboratory Results
02/07/25
02:31
Sodium 132 L
Potassium 3.4 L
Chloride 89 L
Carbon Dioxide 36 H
BUN 32 H
Creatinine 1.5 H
Glucose 110 H
Calcium 8.2 L
Vital Signs:
Vital Signs
Temp Pulse Resp BP Pulse Ox
97.8 F 92 18 92/60 91
02/07/25 08:23 02/07/25 06:00 02/07/25 08:23 02/07/25 02:24 02/07/25 08:23
I&O
02/06/25 02/07/25 02/08/25
06:59 06:59 06:59
Intake Total 680 / 680 720 / 720
Output Total 2575 / 2575 2325 / 2325
Balance -1895 / -1895 -1605 / -1605
--- NOTE | 2025-02-07 11:40 | W.DCSUMMARY ---
Discharge Summary
Discharge Data
Date of Admission: 02/02/25
Date of Discharge: 02/07/25
-
Pending Results: No
Hospital Course
79-year-old male past medical history of hyperlipidemia, CLL, stroke, venous stasis bilateral lower extremity, recurrent pleural effusion was presenting post thoracentesis. Patient was found to be acute hypoxic respiratory insufficiency which was
deemed secondary to heart failure exacerbation. Echocardiogram EF of 50 to 55%. Normal ventricular size and function. No gross valvular normality. No pericardial effusion. No significant change compared to prior 05/13. Patient was eval by
cardiology. Patient was on Lasix 80 mg IV twice daily. Patient with lower extremity cellulitis and was started on IV cefazolin which was transitioned to Keflex on discharge. Patient also with atrial arrhythmia and tachycardia versus atrial
fibrillation. EKG subsequently showed atrial fibrillation. Patient was started on amiodarone. Cardizem was discontinued due to hypotension. Eliquis was started. Patient with now much urinary output and Zaroxolyn was added. Patient with
significant weight loss with diuresis. Patient with bump in creatinine which was deemed secondary to overdiuresis. Patient did not want to stay in the hospital further. Physical and Occupational Therapy recommended rehab which patient and spouse
refused. Patient be discharged back on his home regimen of diuretics with outpatient cardiology follow-up and repeat blood work with primary doctor.
Discharge Plan
-
Patient Disposition: Home with Home Care
Discharge Diagnosis/Procedures: Acute hypoxic respiratory insufficiency secondary to acute on chronic diastolic heart failure exacerbation
Acute kidney injury
Hypokalemia
Mild hyponatremia
Cellulitis
Condition: Fair
Diet: Restrict fluids to 48 oz
Activity: As tolerated
Blood Work: BMP and magnesium in 5 to 7 days days via primary doctor or cardiology
Activity Restrictions/Additional Instructions:
amiodarone to 200mg BID should continue for 1 month before decreasing to 200mg daily thereafter.
Instructions: Dependent Edema (DC), Apixaban, *DCA Heart Failure Instructions
Referrals:
[facility] [Other]
Referral Note: FAX [phone]
Aleksey Torres CRNP [Family Provider, Family Practice] - in less than 1 week
Bonita Sharp CRNP [Specified Professional Personl, Cardiology] - 02/23/25 1:40 pm
Referral Note: You have a cardiology follow-up appointment at the [place] office with Dr. Mcclain's nurse practitioner, Bonita. Please call with questions
Additional Discharge Medication Instructions: Ibuprofen and aspirin 81 mg was discontinued.
Prescriptions:
New
Eliquis 5 mg Tablet
5 mg PO BID Qty: 60 0RF
amiodarone [Pacerone] 200 mg Tablet
200 mg PO BID Qty: 60 0RF
cephalexin 500 mg capsule
500 mg PO QID Qty: 12 0RF
Continued
latanoprost 0.005 % Drops
1 drp LEFT EYE HS
Patient Comments:
02/02/25- patient has free samples from eye doctors
rosuvastatin [Crestor] 40 mg Tablet
40 mg PO HS
Patient Comments:
02/02/25-patient does not take all the time
Brukinsa 80 mg Capsule
160 mg PO BID
metoprolol succinate 25 mg Tablet Extended Release 24 Hr
12.5 mg PO DAILY Qty: 30 0RF
acetaminophen [Tylenol Extra Strength] 500 mg Tablet
1,000 mg PO Q6H PRN (Reason: mild pain)
oxymetazoline 0.05 % Lawson,Non-Aerosol
2 spray INTRANASAL Q12H PRN (Reason: congestion)
potassium chloride 20 mEq Tablet Extended Release
40 meq PO DAILY Qty: 60 0RF
Held
torsemide 20 mg tablet
40 mg PO BID
Hold Instructions: Resume on 02/08/25.
Discontinued
aspirin 81 mg Tablet,Delayed Release (Dr/Ec)
81 mg PO DAILY
ibuprofen [Advil] 200 mg Tablet
200 mg PO Q6H PRN (Reason: mild pain)
Discharge Orders:
Discharge Patient (As Directed); Ordered 02/07/25
Ordered By: Asad Stringer
Discharge Date and Time
Print Language: VIET[place]ESE
[2025-02-07 13:24] VITALS: BP 143/92
--- NOTE | 2025-02-07 13:58 | PTCARENOTE ---
Patient discharged to home with spouses. Instructions reviewed and they verbalized understanding. IV and telemetry removed. Patient escorted to [facility] in a wheelchair
== END 2025-02-07 15:14 | disposition home health service (06) | DRG 291 ==
LOC: IVU 15:42
PROVIDERS: Nurse Practitioner Family; Radiology Vascular & Interventional Radiology; ADMITTING PHYSICIAN Internal Medicine; ATTENDING PHYSICIAN Hospitalist; CONSULT PHYSICIAN Internal Medicine Cardiovascular Disease; EMERGENCY PHYSICIAN Emergency Medicine; FAMILY PHYSICIAN Nurse Practitioner Family
PROC: 0W9B3ZX Drainage of Left Pleural Cavity, Percutaneous Approach, Diagnostic (ICD-10-PCS; 2025-02-02)
DX: I11.0 Hypertensive heart disease with heart failure (principal); I50.33 Acute on chronic diastolic (congestive) heart failure; J96.01 Acute respiratory failure with hypoxia; J91.8 Pleural effusion in other conditions classified elsewhere; C91.10 Chronic lymphocytic leukemia of B-cell type not having achieved remission; E87.1 Hypo-osmolality and hyponatremia; L03.115 Cellulitis of right lower limb; L03.116 Cellulitis of left lower limb; N17.9 Acute kidney failure, unspecified; I47.19 Other supraventricular tachycardia; I48.0 Paroxysmal atrial fibrillation; E78.00 Pure hypercholesterolemia, unspecified; E87.6 Hypokalemia; E88.09 Other disorders of plasma-protein metabolism, not elsewhere classified; K21.9 Gastro-esophageal reflux disease without esophagitis; T50.2X5A Adverse effect of carbonic-anhydrase inhibitors, benzothiadiazides and other diuretics, initial encounter; Z79.82 Long term (current) use of aspirin; Z79.899 Other long term (current) drug therapy; Z86.73 Personal history of transient ischemic attack (TIA), and cerebral infarction without residual deficits
CPT/HCPCS: 32555; 71045; 71046; 80048; 80053; 82945; 83615; 83735; 83880; 84100; 84157; 84478; 84484; 85025; 85027; 87015; 87070; 87205; 89051; 93005; 93306; 96374; 96375; 96376; 97163; 97530; 99285

== ENCOUNTER → 2025-02-10 06:50 | Outpatient (REF) | payer OTHER, SELFPAY ==
[2025-02-10 07:40] VITALS: BP 92/64; BP_SYST 101
== END ==
LOC: RADI 06:50
PROVIDERS: ATTENDING PHYSICIAN Nurse Practitioner Family
DX: J90 Pleural effusion, not elsewhere classified (principal)
CPT/HCPCS: 32555; 71045

== ENCOUNTER 2025-02-16 03:20 | Inpatient (IN) | payer OTHER, SELFPAY ==
[2025-02-15 23:43] VITALS: BP 111/63
[2025-02-15 23:46] VITALS: BP 111/63
[2025-02-16] VITALS (32 sets, daily range): BP systolic 73–110; BP diastolic 51–75; PULSE 74; O2SAT 97; BMI 27.7; BMI 27.0
--- NOTE | 2025-02-16 00:31 | ED.GENMED ---
History of Present Illness
General
Chief Complaint: Breathing Problem
Source: patient, records, family and previous hospital records
Exam Limitations: none and clinical condition
Time Seen by Provider: 02/16/25 00:06
Nursing documentation reviewed up to this point in time: agreed with
History of Present Illness
History of Present Illness:
79-year-old male presents with shortness of breath acute on chronic issue, a week and a half ago shortness of breath pleural effusion lower extremity edema had a thoracentesis since then he has been persistently short of breath worsened tonight
received a neb and oxygen feeling better edema is better recently started on Eliquis and amiodarone had been on Keflex apparently
Past History
Past History
ED Past Medical History: Cancer (CLL), CVA, HTN, Hypercholesterolemia and Other (Hernia)
ED Past Surgical History: None
Social History
Tobacco: Non-smoker
Alcohol: Occasional
Drug: None
Personal:
Living: with family
Employment: Employed
Family History
Family History: Other (Noncontributory)
Review of Systems
Review of Systems
All Other Systems: Not applicable
Constitutional: Reports fatigue; Denies fever
Respiratory: Reports cough and trouble breathing
Cardiac: Denies chest pain
ABD/GI: Reports no symptoms
: Reports no symptoms
Neurological: Reports weakness
Phy Exam
Physical Exam
Physical Exam:
Physical Exam
General: Chronically ill hypoxic
Neck: Noted on
Heart: Regular
Lungs: Diminished breath sounds on the left greater than right with wheeze
Abdomen: Nontender
Neuro: Oriented to person place
Skin: no rash
Psychiatric: Cooperative
Extremities: Venous stasis changes with some edema
Scores
Heart Failure Risk
Heart Failure Risk Score: Not Applicable
Course
Orders/Labs/Results
Orders:
Orders
02/16/25 00:06
Electrocardiogram (*1) Urgent
Reason for Study: Other
Other Reason for Exam: Respiratory Distress
Cardiac Monitoring- Treatment ONCE
EKG- Treatment ONCE
IV Insert/Care/Rem.- Treatment PRN
O2 Therapy [RESP] Urgent
Titrate/Wean O2 to maintain O2 sat greater than (%): 93
Special Instructions: TO MAINTAIN CONTINUOUS O2 SATS >/= 93%
Pulse Ox/cont/shift [RESP] Urgent
Quantity: 1
Special Instructions: continuous pulse ox
02/16/25 00:23
Complete Blood Count/With Diff Urgent
Comprehensive Metabolic Panel Urgent
Magnesium Urgent
Comment: ADD ON
NT-proBNP Urgent
Troponin I Urgent
02/16/25 00:28
Add On- LAB Urgent
Tests Added?: Magnesium
02/16/25 00:54
CR Chest Portable - 1 View Urgent
Comment:
Reason For Exam: sob
Reason Study Needs to be Portable: Patient Unstable
02/16/25 01:09
INF RAPID [Influenza A+B Rapid Molecular] Urgent
JAYCOB Source: Nasal Swab
Specimen Description:
02/16/25 01:22
Calcium Gluconate 1,000 mg IV NOW STA
02/16/25 01:30
0.9% Sodium Chloride 1000 ml [Nss] 1,000 ml IV 200 mls/hr
Abnormal Lab Results
02/16/25
00:23
WBC 17.4 H 10^3/uL
(4.8-10.8)
RBC 2.94 L 10^6/uL
(4.70-6.10)
Hgb 9.0 L g/dL
(13.0-18.0)
Hct 27.0 L %
(39.0-52.0)
RDW 15.3 H %
(11.5-14.5)
MPV 11.0 H fL
(7.4-10.4)
Abs Immat Gran (auto) 0.1 H 10^3/uL
(0-0.05)
Absolute Neuts (auto) 14.6 H 10^3/uL
(1.4-6.5)
Absolute Lymphs (auto) 0.8 L 10^3/uL
(1.2-3.4)
Absolute Monos (auto) 1.9 H 10^3/uL
(0.1-0.6)
Neutrophils % 83.9 H %
(42.2-75.2)
Lymphocytes % 4.7 L %
(20.5-51.1)
Monocytes % 10.8 H %
(1.7-9.3)
Sodium 127 L mmol/L
(135-145)
Potassium 6.1 H* mmol/L
(3.5-5.1)
Chloride 87 L mmol/L
(98-107)
BUN 85 H mg/dl
(9-20)
Creatinine 5.0 H* mg/dL
(0.7-1.3)
Glucose 134 H mg/dl
(70-99)
Calcium 8.1 L mg/dl
(8.4-10.2)
Magnesium 2.5 H mg/dl
(1.6-2.3)
Total Bilirubin 1.7 H mg/dl
(0.2-1.3)
Total Protein 6.2 L g/dl
(6.3-8.2)
Albumin 3.3 L g/dl
(3.5-5.0)
02/16/25 00:23
02/16/25 00:23
Vital Signs
Initial and Last Documented VS:
Initial Vital Signs
Temp Pulse Resp BP Pulse Ox
98.2 F 74 30 111/63 88
12/28/25 23:43 02/15/25 23:43 02/15/25 23:43 02/15/25 23:43 02/15/25 23:43
Last Documented Vital Signs
Temp Pulse Resp BP Pulse Ox
98.2 F 74 30 111/63 88
02/15/25 23:43 02/15/25 23:43 02/15/25 23:43 02/15/25 23:43 02/16/25 00:34
MDM/Problems Addressed
Differential Diagnosis Includes:
Pleural effusion dehydration heart failure electrolyte abnormality pneumonia pericardial effusion less likely PE as he is anticoagulant
MDM/Problems Addressed:
Fatigue shortness of breath
Chronic conditions affecting care: Cardiomyopathy, Arrhythmia and Neurological disorder
Acute Exacerbation and/or Progression of Chronic Illness: Cardiomyopathy, Neurological disorder and Cancer
*Radiology
Radiology exam reviewed: preliminary read by ED provider
*Pulse Oximetry
SaO2: 88
Oxygen Mode of Delivery: Room air
Patient hypoxic: yes
*EKG
Interpreted by ED Provider?: Yes
Interpretation: abnormal
Comparison EKG: no comparison EKG present
Heart Rate: 78
Rate: normal
Rhythm: sinus
Ischemia: non-specific ST changes
*[employer] Interpretation
Rate: normal
Interpretation: normal
Heart Rate: 78
Rhythm: sinus
*Critical Care Note
Total Time (30-74mins, 75-104mins- exclusive of procedures): 32
Data Reviewed
Review of Other/Old Records Reveals: Labs and Discharge Summary
Source: patient, records and family
Update Note
Update Note:
Update labs are noted will start saline hydration calcium, he is overdiuresed chest x-ray noted difficult to interpret
ED Attending Note
-
Portions of this chart may have been created with voice recognition software.� Occasional wrong word or��sound alike� substitutions may have occurred due to the inherent limitations of voice recognition software.
Discharge Plan
Departure
Patient Disposition: Admit
Date of Disposition: 02/16/25
Time of Disposition: 01:24
Admit to: Telemetry
Presentation/result/management discussed w/ accepting MD/DO: Hospitalist
Patient with high blood pressure during this ER visit?: No
Condition: Fair
Discharge Problem:
CLL (chronic lymphoid leukemia) with failed remission, History of CVA (cerebrovascular accident), Acute hypoxemic respiratory failure, Pleural effusion, Acute kidney injury
Prescriptions:
No Action
latanoprost 0.005 % Drops
1 drp LEFT EYE HS
Patient Comments:
02/02/25- patient has free samples from eye doctors
rosuvastatin [Crestor] 40 mg Tablet
40 mg PO HS
Patient Comments:
02/02/25-patient does not take all the time
Brukinsa 80 mg Capsule
160 mg PO BID
metoprolol succinate 25 mg Tablet Extended Release 24 Hr
12.5 mg PO DAILY Qty: 30 0RF
acetaminophen [Tylenol Extra Strength] 500 mg Tablet
1,000 mg PO Q6H PRN (Reason: mild pain)
oxymetazoline 0.05 % [place],Non-Aerosol
2 spray INTRANASAL Q12H PRN (Reason: congestion)
torsemide 20 mg tablet
40 mg PO BID
Eliquis 5 mg Tablet
5 mg PO BID Qty: 60 0RF
amiodarone [Pacerone] 200 mg Tablet
200 mg PO BID Qty: 60 0RF
cephalexin 500 mg capsule
500 mg PO QID Qty: 12 0RF
potassium chloride 20 mEq Tablet Extended Release
40 meq PO DAILY Qty: 60 0RF
Interventions
Interventions:
*General Assessment Last Done: 02/15/25 23:43
*Neglect/Abuse Screening Last Done: 02/15/25 23:43
*ED COVID-19 Vaccine History Last Done: 02/15/25 23:43
*ED Influenza Vaccine History Last Done: 02/15/25 23:43
*Risk Screen - Suicide (C-SSRS) Last Done: 02/15/25 23:43
Discharge Date and Time
Print Language: BELGIAN
[2025-02-16 00:51] LABS: Hematocrit 27.0 % (39.0-52.0); Hemoglobin 9.0 g/dL (13.0-18.0); Mean Corp Hgb Conc. 33.3 g/dL (33.0-37.0); Mean Corpuscular Volume 91.8 fL (80.0-94.0); Nucleated Red Blood Cells % 0 % (-); Platelet Count 298 10^3/uL (130-400); Red Cell Dist. Width 15.3 % (11.5-14.5)
[2025-02-16 01:04] LABS: Troponin I 0.031 ng/ml
[2025-02-16 01:08] LABS: ALT (SGPT) 12 U/L (0-50); AST (SGOT) 39 U/L (17-59); Albumin 3.3 g/dl (3.5-5.0); Alkaline Phosphatase 91 U/L (38-126); Blood Urea Nitrogen 85 mg/dl (9-20); Calcium 8.1 mg/dl (8.4-10.2); Carbon Dioxide 26 mmol/L (22-30); Chloride 87 mmol/L (98-107); Glucose 134 mg/dl (70-99); Magnesium 2.5 mg/dl (1.6-2.3); Potassium 6.1 mmol/L (3.5-5.1); Sodium 127 mmol/L (135-145); Total Protein 6.2 g/dl (6.3-8.2); eGFR 11.03
[2025-02-16] MEDS: NSS 1000 IV (01:32)
[2025-02-16] MEDS: CALCIUM GLUCONATE 1000 MG IV (01:35)
--- NOTE | 2025-02-16 03:06 | HPS.HSE ---
Addendum entered and electronically signed by Herminio Lang DO 02/16/25 03:42:
Robertson placed in the ED for small amount of immediate urine return.
Maintain for strict I/Os.
Cardiology / Nephrology consulted.
Hold on diuresis or additional IVF pending further evaluation.
Original Note:
Family Physician
-
Family Physician: NOEL Hubbard
Chief Complaint
-
SOB, 'Anxiety'
History of Present Illness
Patient is an 79y M with PMH significant for CLL, CHF and recurrent pleural effusions who presents to ED complaining of worsening SOB since his prior admission and anxiety this evening due to severe dyspnea. History obtained from patient and
family at the bedside. Patient was most recently admitted 02/02 - 02/07 for similar symptoms. He underwent diuresis with some increase in SCr. He underwent L thoracentesis on 02/02 and 02/10. Patient states that he has noted gradually
progressive SOB since his discharge and = this evening - he became severely SOB prompting him to present to the ED for evaluation.
He denies any chest pain. He denies any increase in his LE swelling. Patient states that he has not urinated in 2 days - despite taking his torsemide as prescribed.
Here in the ED, patient is noted to be hypoxemic with SpO2 = 88% on room air. He has recurrent L effusion on CXR. He has new POONAM, hyperkalemia, metabolic derangements.
Medical History
Past Medical History
Past Medical History: Reports Other
Additional Past Medical History:
HFpEF
Hypertension
Paroxysmal A-Fib
ASCVD / Prior CVA
CLL on Brukinsa
Recurrent pleural effusions with thoracenteses approximately once per week (last 02/10)
Past Surgical History: Reports Other
Additional Past Surgical History:
Hernia Repair
Back Surgery
Thoracentesis (multiple)
Social History
Tobacco: Non-smoker
Alcohol: Occasional
Drug: None
Personal:
Living: With Family
Employment: Employed
Family History
Family History: Not pertinent
Allergies / Home Medications
Allergies reflects when Allergies were last updated in [facility].
Home Medications with original date entered in [facility]
Allergy/Medication List:
Allergies
Allergy/AdvReac Type Severity Reaction Status Date / Time
No Known Allergies Allergy Verified 02/15/25 23:43
Home Medications
latanoprost 0.005 % eye drops 1 drp LEFT EYE HS Eye Condition 12/07/22
rosuvastatin 40 mg tablet (Crestor) 40 mg PO HS High Cholesterol 12/07/22
zanubrutinib 80 mg capsule (Brukinsa) 160 mg PO BID Cancer 02/26/23
metoprolol succinate 25 mg tablet,extended release 24 hr 12.5 mg (1/2 x 25 mg) PO DAILY #30 tabs 05/16/24
acetaminophen 500 mg tablet (Tylenol Extra Strength) 1,000 mg PO Q6H PRN mild pain 02/02/25
oxymetazoline 0.05 % nasal spray 2 spray intranasal Q12H PRN congestion 02/02/25
torsemide 20 mg tablet 40 mg PO BID 02/02/25
amiodarone 200 mg tablet (Pacerone) 200 mg PO BID Arrhythmia #60 tabs 02/07/25
apixaban 5 mg tablet (Eliquis) 5 mg PO BID Blood clot prevention/tx #60 tabs 02/07/25
potassium chloride 20 mEq tablet,extended release 40 meq (2 x 20 mEq) PO DAILY Electrolyte Repletion #60 tabs 02/07/25
Review of Systems
-
History Source: Patient and Family
A 12 point ROS was completed and negative except as noted: Yes
Constitutional: Reports Fatigue; Denies Fever or Chills
EENT: Denies Sore Throat
Respiratory: Reports Trouble Breathing; Denies Cough or Hemoptysis
Cardiac: Denies Chest Pain, Diaphoresis or Palpitations
Abdomen/GI: Denies Abdominal Pain, Nausea, Vomiting or Diarrhea
: Reports Other (decreased urine output / no urination x 2 days)
Musculoskeletal: Reports Edema; Denies Joint Pain
Neurological: Denies Dizzy or Headache
Psych: Reports Anxiety
Physical Exam
Vital Signs
Vital Signs
Temp Pulse Resp BP Pulse Ox
98.2 F 74 30 111/63 88
02/15/25 23:43 02/15/25 23:43 02/15/25 23:43 02/15/25 23:43 02/16/25 00:34
Physical Exam
General: Other (79y M in mild distress due to SOB.)
HEENT: Moist mucous membranes and PERRLA
Respiratory: Other (Breath sounds are markedly diminished at L > R bases. No rales / rhonchi.)
Cardiac: S1/S2 and Tachycardia; No Murmur
GI: Other (Softly distended. Non-tender. Pos BS.)
Musculoskeletal: No Clubbing, No Cyanosis and Other (2-3+ pitting edema bilateral LEs.)
Skin: Other (Wound over dorsum of L foot.)
Neuro: AO x 3
Laboratory Results
-
02/16/25 00:23
02/16/25 00:23
Laboratory Results
Total Bilirubin 1.7 mg/dl (0.2-1.3) H 02/16/25 00:23
AST 39 U/L (17-59) 02/16/25 00:23
ALT 12 U/L (0-50) 02/16/25 00:23
Alkaline Phosphatase 91 U/L (38-126) 02/16/25 00:23
Troponin I 0.031 ng/ml 02/16/25 00:23
Impression/Plan
-
A/P: Patient is an 79y M with PMH significant for CLL, CHF and A-Fib who presents to ED c/o worsening SOB since his previous hospitalization.
Acute on Chronic HFpEF
Hyponatremia secondary to the above
Recurrent Left > Right Pleural Effusions
Acute Hypoxemic Respiratory Insufficiency secondary to the above
- Admit for further evaluation and treatment.
- Patient appears grossly volume overloaded.
- CXR shows significant re-accumulation of L effusion in particular.
- IR consulted for repeat thoracentesis for symptomatic relief.
- Hold on IV diuresis for now pending improvement in renal function (see below).
- Suspect will benefit from further diuresis once renal function recovers.
- Echo earlier this month was limited - but showed normal LVEF.
- Cardiology evaluation for additional recommendations.
POONAM
Hyperkalemia
- Suspect urinary retention given marked POONAM, hyperkalemia and stated report from patient of no urine output x 2 days despite loop diuretics.
- Place Robertson.
- SCr = 5 compared to recent baseline of 1.0 - 1.5.
- Hold diuretics, supplemental potassium, etc for now.
- Follow for improvement in labs / lytes and would likely attempt additional diuresis as noted above once renal function improves.
Paroxysmal Atrial Tachycardia v Atrial Fibrillation
- Currently in sinus rhythm.
- Continue amiodarone for now.
- Hold Eliquis acutely.
- Monitor on telemetry.
CLL
Chronic Venous Stasis / Skin Discoloration and Bruising
- WBC slightly increased on admission.
- Hold Brukinsa acutely.
- Follow CBC for changes.
DVT Prophylaxis: Subcut heparin for now given POONAM
Code Status: DNR confirmed with patient and .
[2025-02-16] MEDS: LIDOCAINE URO-JET 2% 1 SYRINGE TOPICAL (03:25)
[2025-02-16 06:36] LABS: Hematocrit 27.4 % (39.0-52.0); Hemoglobin 9.3 g/dL (13.0-18.0); Mean Corp Hgb Conc. 33.9 g/dL (33.0-37.0); Mean Corpuscular Volume 91.9 fL (80.0-94.0); Platelet Count 291 10^3/uL (130-400); Red Cell Dist. Width 15.6 % (11.5-14.5)
[2025-02-16 06:51] LABS: Troponin I 0.034 ng/ml
[2025-02-16 07:20] LABS: Blood Urea Nitrogen 87 mg/dl (9-20); Calcium 8.1 mg/dl (8.4-10.2); Carbon Dioxide 28 mmol/L (22-30); Chloride 87 mmol/L (98-107); Estimated Creatinine Clearance 10 ml/min; Glucose 120 mg/dl (70-99); Potassium 5.9 mmol/L (3.5-5.1); Sodium 128 mmol/L (135-145); eGFR 10.52
[2025-02-16] MEDS: TOPROL XL 12.5 MG PO (09:05)
[2025-02-16] MEDS: PACERONE 200 MG PO ×2 (09:05→21:13)
[2025-02-16] MEDS: HEPARIN 5000 UNITS SC ×2 (09:06→20:59)
--- NOTE | 2025-02-16 09:06 | W.CON.NEPH ---
Consultation
-
Date/Time Consultation Requested: 02/16/2025 7:30 AM
Date/Time Consultation Performed: 02/16/2025 9:00 AM
Requesting Provider: Dr. Stringer
Performing Provider: Dr. Lou
Reason for Consultation: Acute kidney injury
Medical History
-
Chief Complaint: Acute kidney injury
History of Present Illness:
Patient is an 79y M with PMH significant for CLL maintained on Burkinsa, CHF on torsemide, AFIB on OAT, and with recurrent pleural effusions who presents to ED complaining of worsening SOB since his prior admission and anxiety last evening due
to severe dyspnea. Patient was most recently admitted 02/02 - 02/07 for similar symptoms. He underwent diuresis with some increase in SCr. He underwent L thoracentesis on 02/02 and 02/10. Patient states that he has noted gradually progressive
SOB since his discharge and = this evening - he became severely SOB prompting him to present to the ED for evaluation.
He denies any chest pain. He denies any increase in his LE swelling. Patient states that he had not urinated in 2 days - despite taking his torsemide as prescribed.
In the ED, patient is noted to be hypoxemic with SpO2 = 88% on room air. He has recurrent L effusion on CXR. He has new POONAM, hyperkalemia, and hyponatremia and Nephrology was consulted.
Past Medical History
HFpEF
Hypertension
Paroxysmal A-Fib
ASCVD / Prior CVA
CLL on Brukinsa
Recurrent pleural effusions with thoracenteses approximately once per week (last 02/10)
Hernia Repair
Back Surgery
Thoracentesis (multiple)
Social History
Tobacco: Non-Smoker
Alcohol: Occasional
Drug: None
Personal:
Family History
Family History: Not Pertinent
Allergies / Home Medications
Allergy/AdvReac Type Severity Reaction Status Date / Time
No Known Allergies Allergy Verified 02/15/25 23:43
�Medication �Instructions �Recorded �Confirmed �Type
latanoprost 0.005 % eye drops 1 drp LEFT EYE HS Eye Condition 12/07/22 02/16/25 History
rosuvastatin 40 mg tablet (Crestor) 40 mg PO DAILY High Cholesterol 12/07/22 02/16/25 History
zanubrutinib 80 mg capsule 160 mg PO BID Cancer 02/26/23 02/16/25 History
(Brukinsa)
metoprolol succinate 25 mg 12.5 mg (1/2 x 25 mg) PO DAILY #30 05/16/24 02/16/25 Rx
tablet,extended release 24 hr tabs
acetaminophen 500 mg tablet 1,000 mg PO Q6H PRN mild pain 02/02/25 02/16/25 History
(Tylenol Extra Strength)
oxymetazoline 0.05 % nasal spray 2 spray intranasal Q12H PRN 02/02/25 02/16/25 History
congestion
amiodarone 200 mg tablet (Pacerone) 200 mg PO BID Arrhythmia #60 tabs 02/07/25 02/16/25 Rx
apixaban 5 mg tablet (Eliquis) 5 mg PO BID Blood clot 02/07/25 02/16/25 Rx
prevention/tx #60 tabs
potassium chloride 20 mEq 40 meq PO DAILY 02/16/25 02/16/25 History
tablet,extended release(part/cryst)
torsemide 20 mg tablet 20 mg PO BID 02/16/25 02/16/25 History
Review of Systems
-
History Source: Patient
All other systems: Negative unless noted
Respiratory: Trouble Breathing
: Other (Decreased urine output)
Musculoskeletal: Edema
Skin: Other (Left dorsal foot wound)
Physical Exam
Vital Signs
Vital Signs
Temp Pulse Resp BP Pulse Ox
97.8 F 80 16 108/74 99
02/16/25 07:45 02/16/25 08:47 02/16/25 08:47 02/16/25 08:47 02/16/25 08:29
Lab Results
Chief Complaint:
History of Present Illness:
Review of Systems:
WBC 16.2 10^3/uL (4.8-10.8) H 02/16/25 06:13
RBC 2.98 10^6/uL (4.70-6.10) L 02/16/25 06:13
Hgb 9.3 g/dL (13.0-18.0) L 02/16/25 06:13
Hct 27.4 % (39.0-52.0) L 02/16/25 06:13
Plt Count 291 10^3/uL (130-400) 02/16/25 06:13
Sodium 128 mmol/L (135-145) L 02/16/25 06:13
Potassium 5.9 mmol/L (3.5-5.1) H 02/16/25 06:13
Chloride 87 mmol/L (98-107) L 02/16/25 06:13
Carbon Dioxide 28 mmol/L (22-30) 02/16/25 06:13
BUN 87 mg/dl (9-20) H 02/16/25 06:13
Creatinine 5.2 mg/dL (0.7-1.3) H* 02/16/25 06:13
eGFR 10.52 02/16/25 06:13
Glucose 120 mg/dl (70-99) H 02/16/25 06:13
Calcium 8.1 mg/dl (8.4-10.2) L 02/16/25 06:13
Fvb-L-Noyxtdpofcg Pept 3700 pg/ml 02/16/25 00:23
Albumin 3.3 g/dl (3.5-5.0) L 02/16/25 00:23
Physical Exam
General: AOx3, Nontoxic , no acute distress
HEENT: PERRL, EOMI, Anicteric, Conjunctivae Clear, Ear/Nose Intact, Hearing Normal, Oropharynx Clear/Moist, Dentition Intact, Facial Symmetry, Neck Supple, Neck: Trachea Midline, No JVD and No Thyromegaly, no Bruits
Respiratory: Coarse to auscultation and fine rales noted at base bilaterally with normal lung excursion, decreased breath sounds bilaterally but L >R
Cardiac: S1/S2 and Regular Rate/Rhythm tachycardic
Breast: Deferred by me
Abdomen: Soft, Nontender, Nondistended, Normal Bowel Sounds and No Hepatosplenomegaly
Rectal: Deferred by Provider
Genito-urinary: No Costovertebral Tenderness, simms
Extremities: No Clubbing, No Cyanosis but 2 plus pitting edema
Skin: Right dorsal foot wound, venous stasis skin changes
Neuro: Nonfocal/Grossly Intact, CN II-XII (Intact) and Strength (Musculoskeletal exam 5 out of 5 both upper and lower extremities)
Hematologic/Lymphatic: No Cervical Lymphadenopathy, No Submandibular Lymphadenopathy and No Supraclavicular Lymphadenopathy
Psych: Mood/affeft pleasant, Insight/judgement good and Appropriate
Vascular: plus 1 pedal and radial pulses
Data Reviewed
-
Radiology: Image Personally Visualized and interpreted (Reviewed chest x-ray which notes bilateral pleural effusions left greater than right)
Labs: Labs Reviewed by me ([facility] CBC urinalysis)
Old Records: Reviewed (Reviewed previous nephrology records from date 02/02/2025 creatinine 0.9)
Assessment/Plan
-
Impression:
Congestive heart failure decompensation with associated bilateral pleural effusions and acute hypoxic respiratory distress
Acute kidney injury
Hyponatremia
Hyperkalemia
Atrial dysrhythmia
CLL
Anemia
Plan:
POONAM:
-Simms catheter placed for possible underlying urinary retention but no significant urine output noted
-Possibly related to congestive heart failure decompensation although I do not know his volume status history
-Patient examines obviously volume overloaded
-Holding potassium supplements in setting of hyperkalemia
-Provide Lokelma 3 times daily until potassium result
-check UA and kidney u/s
-Placed fluid restriction 48 ounces daily for hyponatremia (likely due to CHF)
-Patient may require a right heart cath to determine true volume status
--- NOTE | 2025-02-16 09:34 | CM ---
Chart reviewed Recent admission 02/12-02/07 declined SNF and home with [facility]
Spoke with pt at ED bedside.
Lives with in [address]
Independent with ADLs and ambulation using SPC
DME SPC grab bars
PCP Tomás Torres
[facility] in [place]
current to [facility]
Referral sent via [facility]
no hx SNF
DCP is to go to SNF after PT eval?
Declined SNF on 02/07
CM will continue to follow up for any dcp needs
[2025-02-16 10:04] LABS: Body Fluid Second Tech RP
--- NOTE | 2025-02-16 10:36 | CON.CAR ---
Addendum entered and electronically signed by Marcie Lee DO 02/16/25 17:59:
I saw and examined the patient.
The Pottery Machine Operator's note was reviewed and I agree with the note.
Comment: Patient was seen and examined with cardiac PA in ED bed 13. His was present. Jaxson is an 79-year-old male with past medical history of CLL on Brukinsa since 01/2023, recurrent pleural effusions with frequent thoracenteses,
hypertension, hyperlipidemia, prior stroke 10/2019, paroxysmal atrial tachycardia/ frequent PACs, and GERD. He was admitted to [facility] 02/02/2025 - 02/07/2025 acute heart failure preserved EF. He had thoracentesis 02/02/2025 and was diuresed with 11
pounds with IV Lasix and PRN Metolazone with improvement in lower extremity edema. Creat bumped to 1.5 02/07. He insisted on discharge that day and was discharged home on his prior to admission dose of torsemide 40 mg twice daily. In addition he
was treated for lower extremity cellulitis with IV antibiotics and transitioned to Keflex at discharge. He had atrial fibrillation vs atrial tachycardia and was started on amiodarone and Eliquis. He converted to sinus rhythm. He had subsequent
Left thoracentesis for 350 cc on 02/10/2025. He presented to [facility] 02/16/2025 with worsening shortness of breath, and no urination x 2 days. He was found to have recurrent left pleural effusion and had thoracentesis for 350 cc today 02/16. In
addition, found to have POONAM with creatinine 5.2 and hyperkalemia with K5.9. Labs on admission 02/16/2025: K6.1, BUN/creatinine 85/5.0, NA 127, mag 2.5, proBNP 3700 (pro BNP 2620 02/02/25 admit), troponin 0.031�>0.034, hemoglobin 9, WBC 17.4,
platelets 298, TSH 4.65. EKG: Normal sinus rhythm, first-degree AV block, low voltage, [id number] ms. Chest x-ray with increased large loculated left sided pleural effusion status post thoracentesis for 350 cc sanguinous pleural fluid 02/16/2025 in
ER.Jaxson and his report they have been compliant with medical therapy and have not taken any additional diuretics. He does admit to taking 1 dose of 800 mg of Motrin. Over the last 48 hours appetite has been poor and he has noticed no urine
output in 24 hours.
GEN:Acutely ill 79-year-old gentleman with increased work of breathing and appears fatigued, ill-appearing
HEENT: Dry mucous membranes +JVD
LUNGS: Bronchovesicular breath sounds decreased with bilateral crackles
CV: Reg, S1/S2, no murmur
ABD: Soft, mildly distended. Positive bowel sounds
EXT: 2+ B/L LE edema with erythema. LUE 2+ edema
SKIN: significant ecchymosis of B/L UEs.
Plan:
Acute oliguric renal insufficiency with hyperkalemia and hyponatremia
- Volume status difficult as he appears volume overloaded with recurrent pleural effusion and anasarca with recent hospitalization where he was aggressively diuresed with IV Lasix and metolazone
-Patient now has a Robertson catheter with no significant urine output
- Discussed case with nephrology and interventional cardiology�if no significant improvement over next several hours we will proceed with a right heart catheterization
- Renal ultrasound pending.
-Monitor hemodynamics with lower blood pressure trends.
-Hold antihypertensive medications.
-Serial lab work follow renal function and electrolytes.
- Prognosis guarded
History of PAF on new Eliquis and amiodarone
- Currently in sinus rhythm
- Would hold Eliquis at this time given acute renal insufficiency
- Continue amiodarone but hold metoprolol
- phototypesetting equipment monitor
Chronic heart failure with preserved ejection fraction with recurrent pleural effusions
- Status post thoracentesis in ED with 300 cc removed
- Hold diuretics until following right heart catheterization
- No need to repeat echocardiogram done last admission
CLL�noted.
Original Note:
Consultation
Consultation Request
Date/Time Consultation Requested: 02/16/2025, 04 36
Date/Time Consultation Performed: 02/16/2025, 1037
Requesting Provider: Dr. Lang
Performing Provider: NOEL Sanchez for Dr. Andrade
Reason for Consultation: Heart failure
Medical History
-
Chief Complaint: SOB
History of Present Illness:
HPI: Shiv is an 79-year-old male with past medical history of CLL on Brukinsa since 01/2023, recurrent pleural effusions with frequent thoracenteses, hypertension, hyperlipidemia, prior stroke 10/2019, paroxysmal atrial tachycardia, frequent PACs,
and GERD. He was admitted to [facility] 02/02/2025 - 02/07/2025 acute heart failure preserved EF. He had thoracentesis 02/02/2025 and was diuresed with 11 pounds with IV Lasix and PRN Metolazone with improvement in lower extremity edema. Creat bumped to
1.5 02/07. He insisted on discharge that day and was discharged home on his prior to admission dose of torsemide 40 mg twice daily. In addition he was treated for lower extremity cellulitis with IV antibiotics and transitioned to Keflex at
discharge. He had atrial fibrillation vs atrial tachycardia and was started on amiodarone and Eliquis. He converted to sinus rhythm.
He had subsequent Left thoracentesis for 350 cc on 02/10/2025.
He presented to [facility] 02/16/2025 with worsening shortness of breath, and no urination x 2 days. He was found to have recurrent left pleural effusion and had thoracentesis for 350 cc today 02/16.
In addition, found to have POONAM with creatinine 5.2 and hyperkalemia with K5.9.
Since discharge 02/07/2025, home weight has been stable between 160 and 161 pounds.
Labs on admission 02/16/2025: K6.1, BUN/creatinine 85/5.0, NA 127, mag 2.5, proBNP 3700 (pro BNP 2620 02/02/25 admit), troponin 0.031�>0.034, hemoglobin 9, WBC 17.4, platelets 298, TSH 4.65
EKG: Normal sinus rhythm, first-degree AV block, low voltage, [id number] ms
Chest x-ray with increased large loculated left sided pleural effusion status post thoracentesis for 350 cc sanguinous pleural fluid 02/16/2025 in ER
PMH:
Recurrent pleural effusions with thoracenteses approximately once per week (dose of Brukinsa had been decreased in past as felt to be contributing to effusions)
Chronic HFpEF
CLL on Brukinsa since 01/2023 and more recently Doloresyva followed by [facility]
PACs
Paroxysmal atrial tachycardia
hypertension
hyperlipidemia
history of stroke in 10/2019
GERD
Paroxysmal atrial fibrillation, new diagnosis 02/02/2025, started Eliquis and amiodarone
Lower extremity cellulitis 01/2025
Hyponatremia
POONAM 02/16/2025
Past Medical History
Past Medical History: Other (in HPI)
Past Surgical History: Other (Hernia repair 2021, frequent thoracentesis ~ q 3 weeks)
Social History
Tobacco: Non-Smoker
Personal:
Living: With Family
Employment: Retired
Family History
Family History: Diabetes
Allergies / Home Medications
Allergy/AdvReac Type Severity Reaction Status Date / Time
No Known Allergies Allergy Verified 02/15/25 23:43
�Medication �Instructions �Recorded �Confirmed �Type
latanoprost 0.005 % eye drops 1 drp LEFT EYE HS Eye Condition 12/07/22 02/16/25 History
rosuvastatin 40 mg tablet (Crestor) 40 mg PO DAILY High Cholesterol 12/07/22 02/16/25 History
zanubrutinib 80 mg capsule 160 mg PO BID Cancer 02/26/23 02/16/25 History
(Brukinsa)
metoprolol succinate 25 mg 12.5 mg (1/2 x 25 mg) PO DAILY #30 05/16/24 02/16/25 Rx
tablet,extended release 24 hr tabs
acetaminophen 500 mg tablet 1,000 mg PO Q6H PRN mild pain 02/02/25 02/16/25 History
(Tylenol Extra Strength)
oxymetazoline 0.05 % nasal spray 2 spray intranasal Q12H PRN 02/02/25 02/16/25 History
congestion
amiodarone 200 mg tablet (Pacerone) 200 mg PO BID Arrhythmia #60 tabs 02/07/25 02/16/25 Rx
apixaban 5 mg tablet (Eliquis) 5 mg PO BID Blood clot 02/07/25 02/16/25 Rx
prevention/tx #60 tabs
potassium chloride 20 mEq 40 meq PO DAILY 02/16/25 02/16/25 History
tablet,extended release(part/cryst)
torsemide 20 mg tablet 20 mg PO BID 02/16/25 02/16/25 History
Physical Exam
Vital Signs
Temp Pulse Resp BP Pulse Ox
97.8 F 72 24 106/68 95
02/16/25 07:45 02/16/25 10:30 02/16/25 10:30 02/16/25 10:00 02/16/25 10:30
Lab Results
02/16/25 06:13
02/16/25 06:13
Troponin I 0.034 ng/ml 02/16/25 06:13
Omk-L-Bnsteebresd Pept 3700 pg/ml 02/16/25 00:23
GEN:awake, winded, ill appearing
HEENT: supple, anicteric, mmm, +JVD
LUNGS: rales at bases
CV: Reg, S1/S2, no murmur
ABD: soft, BS+, NT/ND
EXT: 2+ B/L LE edema with erythema. LUE 2+ edema
NEURO: Gross non-focal
SKIN: significant ecchymosis of B/L UEs.
Impression / Plan
-
PCP: Tomás Leslie
Assembly Technician: Dr. Mcclain
Impression:
POONAM
Hyperkalemia
Acute hypoxemic respiratory failure
b/l LE cellulitis
Recurrent, symptomatic pleural effusions with thoracenteses approximately once per week (dose of Brukinsa had been decreased in past as felt to be contributing to effusions)
s/p thoracenteses 12/15/2022, 02/26/2023, 04/09/2023, 04/30/2023, 06/01/2023, 07/03/2023, 07/27/2023, 08/16/2023, 09/12/2023, 10/05/2023, 11/02/2023, 11/23/2023, 12/19/2023, 01/04/2024, 01/31/2024, 02/11/2024, 02/25/2024, 03/05/2024, 03/14/2024, 03/24/2024,
04/01/2024, 04/09/2024, 04/23/2024, 04/30/2024, 05/06/2024, 05/13/24, 05/29/2024, 06/13/2024, 07/08/2024, 08/15/2024, 10/16/2024, 12/16/2024, 01/07/2025, 01/20/2025, 01/27/2025, 02/02/2025, 02/10/2025, 02/16/2025
chronic HFpEF
Paroxysmal atrial tachycardia vs Atrial fibrillation w/ RVR
CLL on Brukinsa since 01/2023 and more recently Doloresyva followed by [facility]
PACs
hypertension
hyperlipidemia
history of stroke in 10/2019
GERD
Hypoalbuminemia, mild
Chronic anemia
, 470 ms,
ECHO 12/07/22: EF 60 to 65%, technically difficult study, no significant valvular pathology, trivial pericardial effusion, pleural effusion noted, IVC dilated and does not collapse
ECHO 05/13/24: EF 60 to 65%, mild concentric LVH, aortic sclerosis, trace AR, top normal size, pleural effusion, enlarged RV size with reduced RV systolic function
Echo 02/03/2025: TDS, EF 50-55%, no gross valvular abnormalities, no pericardial effusion, no significant change from prior study
Plan:
-presented 02/16/2025 with SOB, decreased urine output, recurrent L pleural effusion and found to have POONAM and hyperkalemia.
-POONAM with creatinine to 5.0 (baseline 0.9), now trended up to 5.2
-on admission hyperkalemia K 6.1. (K had been 3.4 at time of discharge 02/07/25), receiving Lokelma, repeat K 5.9 02/16, continue to trend
-wt stable since recent discharge from admit for acute HFpEF but examines volume overloaded on exam.
- s/p L thoracentesis today, 02/16 for 350 cc , 02/10 for 350 cc, 02/02 with 1400 cc removed
- echo 02/03/2025 with preserved EF and no significant valvular heart dz
-Creatinine had been uptrending at time of last discharge, 1.4 on 02/06, 1.5 on 02/07
-pt discharged on usual home dose of Torsemide 40 mg bid
-had one time dose of Ibuprofen 800 mg in home setting
-diuretics now on hold in setting of POONAM
-hold all nephrotoxic agents
- Robertson in place
- Consideration for right heart cath but would pursue imaging of kidney to rule out obstructive cause of POONAM
-he has known PAT w/ questionable history of atrial fibrillation. Started on amiodarone 02/02/25 with significant improvement in burden of atrial arrhythmais.
- Currently in SR on review of tele. Continue Toprol 12.5mg daily. QTc more prolonged than in past, 470 msec, will hold amiodarone for now.
- Given elevated [id number] score including history of stroke, was transitioned to Eliquis 02/02. Currently on hold due to POONAM. Last dose Eliquis 02/15/25 a.m. Aspirin stopped last admission to reduce risk of bleeding
Prognosis appears poor
Data Reviewed
-
EKG: Tracing Personally Visualized and interpreted
Labs: Labs Reviewed by me
--- NOTE | 2025-02-16 10:55 | CON.PUL ---
Consultation
Consultation Request
Date/Time Consultation Requested: 02/16/2025 - 0436
Date/Time Consultation Performed: 02/16/2025 - 2
Requesting Provider: Dr. Lang
Performing Provider: Dr. Kidd
Reason for Consultation: Recurrent pleural effusions
Medical History
-
Chief Complaint: SOB + weakness
History of Present Illness:
79-year-old male with a past medical history of A-fib on Eliquis + amiodarone, CLL (diagnosed in 2019) currently on with Brukinsa, history of CVA with residual slurred speech, history of pneumonia, hypertension, hyperlipidemia, chronic HFpEF, and
chronic anemia who presents with SOB + weakness. Patient was recently hospitalized here at from 02/02 - 02/07/2025 due to acute heart failure exacerbation and lower extremity cellulitis. Also had atrial arrhythmia and started on amiodarone for
EKG confirmed A-fib. He was discharged on Eliquis + amiodarone and also a course of Keflex. Last thoracentesis on 02/10/2025, removing 350 cc of grossly bloody pleural fluid. Patient says that he has not been urinating in the last 48 hours
despite him taking his torsemide. In the ER he was afebrile, pulse rate 74, respiratory rate 23-30 bpm, BP 111/63 and he was saturating 88% on room air which improved to 94% with 2 L/min nasal cannula labs showed leukocytosis to 17.4, Hb 9.0,
creatinine 5.0 (was recently 1.5 on 02/07/2025), potassium 6.1, T. bili 1.7, proBNP 3700, urinalysis with >15 granular casts with 3�5 waxy casts, and >30 urine squamous epithelial cells with >100 urine WBC and 2+ leukocyte esterase. Flu swab
negative. CXR showed a large loculated left-sided pleural effusion with a stable small�moderate-sized right pleural effusion. IR consulted and a left-sided thoracentesis was performed removing 350 cc of sanguinous pleural fluid. Cardiology and
nephrology both consulted. In the ER he was given 1 L NS 0.9% + calcium gluconate. He was admitted to the IMU for further care and Pulmonary service now consulted regarding the recurrent pleural effusions.
PMHx: A-fib, CLL (diagnosed in 2019) currently on treatment, history of CVA with residual slurred speech, history of pneumonia, hypertension, hyperlipidemia, chronic HFpEF, anemia, history of COVID-19 (03/2021)
PSHx: Lumbar ILESI, robotic assisted inguinal hernia repair with mesh
Past Medical History
Past Medical History: Other (Above as per HPI)
Past Surgical History: Other (Above as per HPI)
Social History
Tobacco: Non-smoker
Alcohol: Occasional
Drug: None
Family History
Family History: CAD (Mother), Diabetes (Mother) and Other (Father: Pneumonia)
Allergies / Home Medications
Allergies
Allergy/AdvReac Type Severity Reaction Status Date / Time
No Known Allergies Allergy Verified 02/15/25 23:43
Home Medications
�Medication �Instructions �Recorded �Confirmed �Last Taken �Type
latanoprost 0.005 % eye drops 1 drp LEFT EYE HS Eye Condition 12/07/22 02/16/25 02/15/25 History
rosuvastatin 40 mg tablet (Crestor) 40 mg PO DAILY High Cholesterol 12/07/22 02/16/25 02/15/25 History
zanubrutinib 80 mg capsule 160 mg PO BID Cancer 02/26/23 02/16/25 02/15/25 History
(Brukinsa)
metoprolol succinate 25 mg 12.5 mg (1/2 x 25 mg) PO DAILY #30 05/16/24 02/16/25 02/15/25 Rx
tablet,extended release 24 hr tabs
acetaminophen 500 mg tablet 1,000 mg PO Q6H PRN mild pain 02/02/25 02/16/25 02/15/25 History
(Tylenol Extra Strength)
oxymetazoline 0.05 % nasal spray 2 spray intranasal Q12H PRN 02/02/25 02/16/25 Unknown History
congestion
amiodarone 200 mg tablet (Pacerone) 200 mg PO BID Arrhythmia #60 tabs 02/07/25 02/16/25 02/15/25 Rx
apixaban 5 mg tablet (Eliquis) 5 mg PO BID Blood clot 02/07/25 02/16/25 02/15/25 Rx
prevention/tx #60 tabs
potassium chloride 20 mEq 40 meq PO DAILY 02/16/25 02/16/25 02/15/25 History
tablet,extended release(part/cryst)
torsemide 20 mg tablet 20 mg PO BID 02/16/25 02/16/25 02/15/25 History
Review of Systems
-
Unable to Obtain full review of systems at this time due to: Acuity
Vitals / Labs / Diagnostic Testing
Vital Signs
Temp Pulse Resp BP Pulse Ox
97.8 F 80 16 108/74 99
02/16/25 07:45 02/16/25 08:47 02/16/25 08:47 02/16/25 08:47 02/16/25 08:29
Lab Data
02/16/25 06:13
02/16/25 06:13
Microbiology
02/16/25 01:09 Nasal Swab Influenza Types A & B (FAITH) - Final
Negative for Influenza A & B, NAAT
Negative results must be combined with clinical observations
and patient history.
Nucleic Acid Amplification test (NAAT)performed on the
[employer] platform.
Diagnostic Testing:
Physical Exam
-
HEENT: Normocephalic and Anicteric
Cardiovascular: S1/S2 and Peripheral Edema (+2 lower extremity pitting edema)
Respiratory: Wheeze (n), Rales (Bilateral), Rhonchi (n) and Accessory Resp Muscle Use (positive)
GI: Soft, Distended (mildly), Non Tender and Normal Bowel Sounds
Neurology: Awake and Tremors (n)
Skin: Warm and Dry
General: Respiratory Distress (positive), Fever (n), Chills (n) and Sweats (n)
Assessment
-
Assessment: 79-year-old male with a past medical history of A-fib on Eliquis + amiodarone, CLL (diagnosed in 2019) currently on with Brukinsa, history of CVA with residual slurred speech, history of pneumonia, hypertension, hyperlipidemia, chronic
HFpEF, and chronic anemia who presents with SOB + weakness. Patient was recently hospitalized here at from 02/02 - 02/07/2025 due to acute heart failure exacerbation and lower extremity cellulitis. Also had atrial arrhythmia and started on
amiodarone for EKG confirmed A-fib. He was discharged on Eliquis + amiodarone and also a course of Keflex. Last thoracentesis on 02/10/2025, removing 350 cc of grossly bloody pleural fluid. Patient says that he has not been urinating in the last
48 hours despite him taking his torsemide. In the ER he was afebrile, pulse rate 74, respiratory rate 23-30 bpm, BP 111/63 and he was saturating 88% on room air which improved to 94% with 2 L/min nasal cannula labs showed leukocytosis to 17.4, Hb
9.0, creatinine 5.0 (was recently 1.5 on 02/07/2025), potassium 6.1, T. bili 1.7, proBNP 3700, urinalysis with >15 granular casts with 3�5 waxy casts, and >30 urine squamous epithelial cells with >100 urine WBC and 2+ leukocyte esterase. Flu swab
negative. CXR showed a large loculated left-sided pleural effusion with a stable small�moderate-sized right pleural effusion. IR consulted and a left-sided thoracentesis was performed removing 350 cc of sanguinous pleural fluid. Cardiology and
nephrology both consulted. In the ER he was given 1 L NS 0.9% + calcium gluconate. He was admitted to the IMU for further care and Pulmonary service now consulted regarding the recurrent pleural effusions.
Conditions present prior admission:
History of CLL (diagnosed on 2019) currently on Brukinsa
Hypertension
Hyperlipidemia
Prior history of CVA-residual slurred speech from a stroke.
Recurrent pleural effusion
Atrial fibrillation on Eliquis + amiodarone
Chronic anemia
History of COVID-19 (March 2021)
History of pneumonia
Impression:
#Recurrent bilateral pleural effusions with large loculated left pleural effusion and stable right side effusion
#Acute on chronic HFpEF
#Acute respiratory failure with hypoxia due to above
#Anasarca
#Paroxysmal A-fib on Eliquis + amiodarone
#POONAM with hyperkalemia
#Hypochloremic, hyponatremia
#Elevated troponin
#Acute on chronic anemia
#Leukocytosis
Plan:
- Patient's recurrent pleural effusions is due acute heart Failure in the setting of CD5�positive B-cell lymphoproliferative disorder, per flow cytometry analysis of right-sided pleural fluid in February 2024
- Follow-up pleural fluid studies from left hemithorax sent by IR today; pleural fluid shows PMN predominant fluid
- RHC pending for today
- Given that the left-sided loculated effusion did not significantly decrease in size from thoracentesis today, believe he would benefit from chest tube. Will first obtain RHC as if his pleural effusions are predominantly from left-sided heart
failure, then will see if there is improvement with aggressive diuresis - however considering the loculated nature of this L-sided collection, I believe that it ultimately will require direct drainage
- In the interim, hold off on diuresis until RHC is back given his significant POONAM
- Of note, he has had bilateral pleural effusions (L >R) as far back as 06/13/2022 - he has had 39 thoracentesis procedures since that time (including today). 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
- If chest tube is inserted to drain this loculated left effusion, he would need tPA/dornase
- Trend I/O, daily weight, low sodium/fluid restricted diet
- Cardiology/interventional cardiology + nephrology services on board and recommendations appreciated
- Heart rate control with goal <110�120
- Considering his upcoming RHC, hold off on Eliquis for now and continue with chemical DVT prophylaxis
- Replete electrolytes with K>4, Mg>2
- Patient's last echo was on 02/03/2025 which was a technically difficult study with limited views. Estimated LVEF was 50-55% with normal RV size/function, no pericardial effusion, no gross valvular abnormalities and no significant changes
compared to prior echo from April 2024
- Maintain SpO2 >90-94%, using supplemental O2 and weaning down as tolerated
- prn nebulized bronchodilators - patient not currently bronchospastic
- Aspiration precautions; keep HOB >30-45�
- Defer management of electrolyte abnormalities + POONAM to nephrology
- Maintain euglycemia with goal BG >100mg/dL and <180mg/dL
- Trend H/H and transfuse if needed to keep Hb >7-8g/dL; keep plt>50k (given impending RHC)
- Incentive spirometer encouraged 10x per hour for at least 4 hours a day
- DVT ppx: Eliquis currently on hold; continue with HSQ
High risk situation. DNR/DNI
Pulmonary service will continue to follow along.
Total time spent today was 76 minute for this encounter. Time includes reviewing laboratory tests/imaging results, reviewing pertinent medical records, obtaining and reviewing medical history, performing an appropriate physical exam, ordering
medications, tests and procedures. Time also includes documentation of this encounter, coordinating patient care and communicating with other healthcare professionals. Total time does not include separately billed tests or procedures performed on
this date of service.
Data:
CXR 02/16/2025:
There is an increased, large loculated left-sided pleural effusion with adjacent airspace opacities which likely represents atelectasis.
There is a stable small/moderate right-sided pleural effusion with adjacent airspace opacities, likely atelectasis.
[2025-02-16 11:05] LABS: Troponin I 0.038 ng/ml
[2025-02-16 11:11] LABS: Urine Character Slightly Cloudy (Clear)
--- NOTE | 2025-02-16 12:05 | WOUNDNOTE ---
LAURYN RN note: Patient admitted with pleural effusion and acute kidney injury.
See H&P for complete history.
PMH: Patient is an 79y M with PMH significant for CLL, CHF and recurrent pleural effusions who presents to ED complaining of worsening SOB since his prior admission and anxiety this evening due to severe dyspnea.
Wound Location and type/assessment: Patient admitted with: L dorsal foot open blister and red discoloration medially, patient states from too tight shoes. Edema in both feet, + pedal pulses with Doppler. Heels boggy but intact. Patient turned self,
sacrum intact.
Appetite: NPO, fair reports patient.
Pressure redistribution devices in place: Can be on Accumax, turning schedule. Pillow placed under calves.
Plan: Local wound care applied. Will order mineral oil and letha wrap knee high.
Will confirm orders with hospitalist and updated nurse. Updated care plan and will follow as needed.
Note to case management of equipment requested for discharge: None.
[2025-02-16 12:27] LABS: Urine Red Blood Cell >100 /HPF (0-2); Urine Squamous Cell >30 /LPF (Few)
[2025-02-16 12:28] LABS: Urine White Cell >100 /HPF (0-5)
--- NOTE | 2025-02-16 13:23 | W.PN.UPDATE ---
Update Note
Progress Note Update
Seen and examined independent of overnight physician. Patient remains with shortness of breath. Underwent thoracentesis earlier today. Robertson catheter was placed not much urinary output
General: Well Developed, Well Nourished, No Apparent Distress, Comfortable and Conversant
HEENT: NormoCephalic, Nose Appears Normal and Ears Appear Normal
Respiratory: dec bs, room air
Cardiac: S1/S2,
GI: Soft, Non Tender, Non Distended and Normal Bowel Sounds
Musculoskeletal: No Clubbing and No Cyanosis
Skin: Bilateral lower extremity chronic venous stasis improvement in erythema, bilateral upper extremity edema
Neuro: Awake and AO x 3
Psych: Calm and Intact Judgment/Insight
A/P: Patient is an 79y M with PMH significant for CLL, CHF and A-Fib who presents to ED c/o worsening SOB since his previous hospitalization.
Acute on Chronic HFpEF
Acute Hypoxemic Respiratory Insufficiency secondary to the above
- CXR shows significant re-accumulation of L effusion in particular.
- Hold on IV diuresis for now pending improvement in renal function (see below).
- Suspect will benefit from further diuresis once renal function recovers.
- Echo earlier this month was limited - but showed normal LVEF.
- Overall unclear if would benefit from RHC.
- Cardiology evaluation for additional recommendations.
POONAM
Hyperkalemia
- Suspect urinary retention given marked POONAM, hyperkalemia and stated report from patient of no urine output x 2 days despite loop diuretics.
- Place Robertson.
- SCr = 5.2 compared to recent baseline of 1.0 - 1.5.
- Hold diuretics, supplemental potassium, etc for now.
- Follow for improvement in labs / lytes and would likely attempt additional diuresis as noted above once renal function improves.
- Started on Lokelma
- Renal bladder US pending.
#Recurrent pleural effusions likely suspected secondary to CLL versus possibility of heart failure
- IR consulted for repeat thoracentesis for symptomatic relief s/p 350cc fluid removed.
Paroxysmal Atrial Tachycardia v Atrial Fibrillation
- Currently in sinus rhythm.
- Continue amiodarone for now.
- Hold Eliquis acutely.
- Monitor on telemetry.
CLL
Chronic Venous Stasis / Skin Discoloration and Bruising
- WBC slightly increased on admission.
- Hold Brukinsa acutely.
- Follow CBC for changes.
DVT Prophylaxis: Subcut heparin for now given POONAM
Code Status: DNR
Discussed with patient spouse at bedside in details-to assess patient for improvement in lower extremity edema, creatinine, renal function, oxygenation, symptomology overall. Await further input from other consultants.
--- NOTE | 2025-02-16 15:30 | PTCARENOTE ---
Rec'd report from Shabbir in the ER; Rec'd pt AAOx3 w/no c/o CP but c/o of being 'very SOB'; Pt on 4L O2 via NC sats at 95%. Pt transferred from stretcher to bed & positioned for better breathing comfort. Pt's VSS w/HR in the 70's & BP 100/64 on
arrival to the floor. Pt is SR w/1st deg AVB on telemetry monitoring. L back thoracentesis site w/bandaid C/D/I. Pt's bilat LE's red, swollen w/ +2 pitting edema. Bilat UE's +3 edema w/purple ecchymosis. Pt's spouse at bedside. Dr Hanna in to see
pt.
Report then given to Kaylie in the orthodontic laboratory technician. orthodontic laboratory technician RNs over to take pt in his bed for R heart cath w/Dr Hanna.
--- NOTE | 2025-02-16 16:37 | ITS.CL.CATH ---
Fixed [employer] - Catheterization
Cardiac Catheterization
Procedure Report:
RIGHT HEART CATHETERIZATION
Date of Procedure: February 16, 2025
Referring: Dr. Marcie Lee
INDICATION: Acute renal failure of unclear etiology
Hemodynamics (mmHg):
RA (m) : 24
RV (s/d,m) : 41/16, 23
PA (s/d, m) : 44/23, 28
PCWP (m) : 26
Ao cuff: 108/60, 78
Cardiac Output : 4.4 L/min and Cardiac Index : 2.4 L/min/m-2
Systemic vascular resistance: 12.3 Wood units or 982 [id number](-5)
Pulmonary vascular resistance: 0.45 Wood units or 36 [id number](-5)
SEDATION: 0 minutes of procedural sedation was utilized. An independent medical record clerk was present to assist with and help manage the patient's level of consciousness and physiologic status
RADIATION SUMMARY: Fluoro Time (min): 1.8, Dose (mGy): 41.3, DAP (Gy.cm2) : 4.6
CONCLUSION:
1. Elevated right and left ventricular filling pressures with normal cardiac output and cardiac index
Copy to: Dr. Kiel Mcclain
--- NOTE | 2025-02-16 16:40 | CM ---
spoke to in room, pt in labor law professor. she confirms pt is current with [facility] at home with PT/OT and possible palliative care. cm to send referral. plan is undet at this time, cm following.
[2025-02-16] MEDS: LOKELMA PO (17:15)
[2025-02-16] MEDS: LOKELMA 10 GRAM PO (18:47)
--- NOTE | 2025-02-16 19:10 | PTCARENOTE ---
This RN spoke w/Dr Lou to advise of pt's last 3 BP levels prior to giving 1800 IV Lasix as ordered. Pt's BP at 1800 82/54, 1825 84/53, then at 1850 85/51. Advised by to give IV Lasix as ordered. This RN finished shift report & rechecked pt's
BP, 92/60 & administered IV Lasix through patent R wrist IV. Plan of care ongoing.
[2025-02-16] MEDS: LASIX 80 MG IV (19:51)
[2025-02-16] MEDS: FLUSH (NSS) 2 FLUSH IV (19:52)
[2025-02-16 20:30] LABS: Troponin I 0.037 ng/ml
--- NOTE | 2025-02-16 20:30 | PTCARENOTE ---
Assumed care of patient at change of shift. AAOx3, BP's have been low.92/60 last check. 96% on 4L O2, lungs diminished at the bases bilaterally. Patient denies complaints. R Brachial cath site dressing is dry and intact. Plan of care discussed
and call hull within reach
[2025-02-16] MEDS: XALATAN OPHTHALMIC SOLUTION 1 DROP LEFT EYE (21:57)
[2025-02-17] VITALS (21 sets, daily range): BP systolic 87–129; BP diastolic 45–91; BMI 27.0
[2025-02-17 04:22] LABS: Hematocrit 25.2 % (39.0-52.0); Hemoglobin 8.2 g/dL (13.0-18.0); Mean Corp Hgb Conc. 32.5 g/dL (33.0-37.0); Mean Corpuscular Volume 93.3 fL (80.0-94.0); Nucleated Red Blood Cells % 0 % (-); Platelet Count 303 10^3/uL (130-400); Red Cell Dist. Width 15.7 % (11.5-14.5)
[2025-02-17 04:56] LABS: Blood Urea Nitrogen 94 mg/dl (9-20); Calcium 7.7 mg/dl (8.4-10.2); Carbon Dioxide 27 mmol/L (22-30); Chloride 86 mmol/L (98-107); Estimated Creatinine Clearance 8 ml/min; Glucose 108 mg/dl (70-99); Potassium 6.6 mmol/L (3.5-5.1); Sodium 128 mmol/L (135-145); eGFR 8.52
[2025-02-17] MEDS: LOKELMA 10 GRAM PO (05:26)
--- NOTE | 2025-02-17 05:37 | W.PN.UPDATE ---
Update Note
Progress Note Update
Patient is desatting 77% on 6 L, Patient placed on NRB 15 L and SPO2 up to 95-96%.
-On exam patient is complaining of sob, diminished lung sound noted.
chest x-ray, abg ordered, will give morning dose of 80mg of Lasix. PRN lily gale
-Also this am K is 6.6, discussed with the nursing staff to to give morning dose Lokelma 10mg. Nephro agrees with the plan and no new recommendation.
-abg result noted.
-chest x-ray result is pending.
[2025-02-17] MEDS: LASIX IV ×2 (05:41→09:15)
--- NOTE | 2025-02-17 06:06 | PTCARENOTE ---
Patient rang with complaints that he is unable to breathe. O2 saturation at 77% on 4 L. Patient placed on Non-rebreather at 15 L, O2 at 99%. 94/45, heart rate 74. Patient's potassium resulted at 6.6, creatinine at 6.2. [place] [employer] DYE[employer] MACHINE OPERATOR notified and
came to see patient. Advised to give am dose of Lokelma and mornign dose of 80 mg IV lasixs. Patient took the Lokelma, but refused the Lasixs stating that he was dry and he doesn't want it because it doesn't work. Educated patient on the purpose
of the Lasixs and the goal is to help with his breathing. Patient continues to refuse the Lasix, states 'no way, he doesn't want it'. Dr. Lou and [place] [employer] D[employer] MACHINE OPERATOR made aware. Patient has put out 25 ml's of of blood tinged urine overnight. CXR taken,
and respiratory in to draw ABG's.
[2025-02-17] MEDS: DUONEB 3 ML INH (06:11)
[2025-02-17 06:30] LABS: B.E. 3.8 mmol/L; HCO3 29.1 mmol/L (21-28); O2 Saturation % 100.0 % (94-98); PCO2 47 mmHg (35-48); PO2 147 mmHg (83-108)
[2025-02-17 06:33] LABS: O2 Therapy NRB 15 L
--- NOTE | 2025-02-17 07:33 | W.PN.NEPH.PH ---
Today's Communication / Plan
-
Will need hospice evaluation
Obtain ultrasound just to make sure there is no obstructive component
Treatment of hyperkalemia
Assessment/Plan
-
Impression:
Congestive heart failure decompensation with associated bilateral pleural effusions and acute hypoxic respiratory distress
Acute kidney injury
Hyponatremia
Hyperkalemia
Atrial dysrhythmia
CLL
Anemia
Plan:
POONAM:
-Right heart cath results reviewed noted pulmonary capillary wedge pressure of 28
-80 mg IV twice daily of Lasix started last evening without any efficacy as patient remains anuric and now short of breath and hyperkalemic
-POONAM worsening with creatinine now greater than 6
-Patient now hypoxic on nonrebreather mask
-Robertson catheter placed for possible underlying urinary retention but no significant urine output noted
-Chest x-ray personally reviewed from this morning noted for bilateral airspace disease
-Holding potassium supplements in setting of hyperkalemia
-Provided Lokelma but needs insulin and D50
-I spoke with as his renal failure continues to worsen with hypoxia and hyperkalemia and she has decided to pursue a palliative course as dialysis would be difficult at best given his unstable hemodynamics and his severe comorbidities
-Henceforth the palliative approach will be implemented
-checking UA and kidney u/s
-maintain fluid restriction 48 ounces daily for hyponatremia (likely due to CHF)
- Patient critically ill with hyperkalemia worsening renal failure and hypoxic respiratory failure
- Discussion of end-of-life with
- 31 minutes of critical care provided
Total Time Spent with Patient (in minutes): 31
-
-
Date of Service: February 17, 2025
CC / HPI / ROS
-
Chief Complaint:
Acute kidney injury
History of Present Illness:
Acute kidney injury worsening with creatinine greater than 6
Hyperkalemia
Hemodynamic instability
Right heart cath provided yesterday pulmonary capillary wedge pressure of 26
Review of Systems:
Anuric despite IV Lasix
Increasing shortness of breath on nonrebreather
No fevers
Labs
-
Labs:
WBC 17.9 10^3/uL (4.8-10.8) H 02/17/25 03:54
RBC 2.70 10^6/uL (4.70-6.10) L 02/17/25 03:54
Hgb 8.2 g/dL (13.0-18.0) L 02/17/25 03:54
Hct 25.2 % (39.0-52.0) L 02/17/25 03:54
Plt Count 303 10^3/uL (130-400) 02/17/25 03:54
Sodium 128 mmol/L (135-145) L 02/17/25 03:54
Potassium 6.6 mmol/L (3.5-5.1) H* 02/17/25 03:54
Chloride 86 mmol/L (98-107) L 02/17/25 03:54
Carbon Dioxide 27 mmol/L (22-30) 02/17/25 03:54
BUN 94 mg/dl (9-20) H 02/17/25 03:54
Creatinine 6.2 mg/dL (0.7-1.3) H* 02/17/25 03:54
eGFR 8.52 02/17/25 03:54
Glucose 108 mg/dl (70-99) H 02/17/25 03:54
Calcium 7.7 mg/dl (8.4-10.2) L 02/17/25 03:54
Rrd-J-Llmoborfvdz Pept 3700 pg/ml 02/16/25 00:23
Albumin 3.3 g/dl (3.5-5.0) L 02/16/25 00:23
Physical Exam
-
Vital Signs:
Vital Signs
Temp Pulse Resp BP Pulse Ox
97.6 F 80 20 107/70 99
02/17/25 06:49 02/17/25 06:16 02/17/25 06:49 02/17/25 06:04 02/17/25 06:49
Cardiovascular:: Regular rate and rhythm
Respiratory:: Bilateral: Coarse
Lung Excursion:: Normal
Abdomen:: Nontender and Soft
Bowel Sounds:: Normal
Extremity Edema:: +1: Bilateral:
Robertson Catheter: Yes
[2025-02-17] MEDS: ATIVAN 0.5 MG IV (09:14)
[2025-02-17] MEDS: NSS (PRESERVATIVE FREE) 0.25 ML IV (09:14)
[2025-02-17] MEDS: HEPARIN SC (09:15)
[2025-02-17] MEDS: PACERONE PO (09:16)
[2025-02-17] MEDS: FLUSH (NSS) 2 FLUSH IV (09:16)
[2025-02-17] MEDS: TOPROL XL PO (09:16)
--- NOTE | 2025-02-17 10:00 | CM ---
hospice consult faxed and accepted, awaiting in person visit.
--- NOTE | 2025-02-17 10:57 | W.PN.HOSP.TC ---
Today's Communication/Plan
-
DC TO [facility]
Assessment / Plan
Assessment / Plan
General: Dyspneic, sleeping
HEENT: NormoCephalic, Nose Appears Normal and Ears Appear Normal
Respiratory: Labored respiration, on oxygen, off nonrebreather
Cardiac: Regular rhythm on monitor
GI: Soft, Non Tender, Non Distended and Normal Bowel Sounds
Musculoskeletal: No Clubbing and No Cyanosis
Skin: Bilateral lower extremity chronic venous stasis improvement in erythema, bilateral upper extremity edema
Neuro: Sleeping
Psych: Calm
A/P: Patient is an 79y M with PMH significant for CLL, CHF and A-Fib who presents to ED c/o worsening SOB since his previous hospitalization.
Acute on Chronic HFpEF
Acute Hypoxemic Respiratory Insufficiency secondary to the above
- CXR shows significant re-accumulation of L effusion in particular.
- Hold on IV diuresis for now pending improvement in renal function (see below).
- Suspect will benefit from further diuresis once renal function recovers.
- Echo earlier this month was limited - but showed normal LVEF.
- Status post right heart catheterization with volume overload. Was started on Lasix 80 mg IV twice daily. Patient remained without much urinary output. Creatinine continued to worsen. Potassium worsening.
- Cardiology evaluation for additional recommendations.
POONAM
Hyperkalemia
- Suspect urinary retention given marked POONAM, hyperkalemia and stated report from patient of no urine output x 2 days despite loop diuretics.
- Place Robertson.
- Patient with worsening of creatinine. Potassium worsening.
- Hold diuretics, supplemental potassium, etc for now.
- Follow for improvement in labs / lytes and would likely attempt additional diuresis as noted above once renal function improves.
- Started on Lokelma
- Renal bladder US pending.
#Recurrent pleural effusions likely suspected secondary to CLL versus possibility of heart failure
- IR consulted for repeat thoracentesis for symptomatic relief s/p 350cc fluid removed.
Paroxysmal Atrial Tachycardia v Atrial Fibrillation
- Currently in sinus rhythm.
- Continue amiodarone for now.
- Hold Eliquis acutely.
- Monitor on telemetry.
CLL
Chronic Venous Stasis / Skin Discoloration and Bruising
- WBC slightly increased on admission.
- Hold Brukinsa acutely.
- Follow CBC for changes.
DVT Prophylaxis: Subcut heparin for now given POONAM
Code Status: DNR
Patient with worsening of oxygenation requirement, volume overload, hyperkalemia and spouse has decided patient to palliative and hospice measures. Discussed patient will require IV medication including Valium Dilaudid infusion ATC. Family
understand patient prognosis which is poor and likely eminent. Hospice saw the patient and paperwork signed and will be transferred to [facility].
More than 30 minutes spent in discharge including
Final examination of the patient
Summarizing hospital stay
Instructions for continuing care to all relevant caregivers
Preparation of discharge records, prescriptions, and referral forms
Total time spent (in minutes): 55
Anticipated Discharge: Today
Subjective/Interval History
-
Date of Service: February 17, 2025
Patient with increasing oxygenation requirement
Patient complaining of shortness of breath overnight
Chest x-ray and additional intervention was performed
Objective Data
-
Labs:
Laboratory Results
02/17/25 02/17/25 02/17/25
03:54 06:15 10:38
WBC 17.9 H
Hgb 8.2 L
Hct 25.2 L
Plt Count 303
HCO3 29.1 H
Sodium 128 L
Potassium 6.6 H* Pending
Chloride 86 L
Carbon Dioxide 27
BUN 94 H
Creatinine 6.2 H*
Glucose 108 H
Calcium 7.7 L
Vital Signs:
Vital Signs
Temp Pulse Resp BP Pulse Ox
97.6 F 80 20 107/70 99
02/17/25 06:49 02/17/25 06:16 02/17/25 06:49 02/17/25 06:04 02/17/25 06:49
I&O
02/16/25 02/17/25 02/18/25
06:59 06:59 06:59
Intake Total 316 / 316
Output Total 40 / 40
Balance 276 / 276
--- NOTE | 2025-02-17 10:57 | W.DCSUMMARY ---
Discharge Summary
Discharge Data
Date of Admission: 02/16/25
Date of Discharge: 02/17/25
-
Pending Results: No
Hospital Course
79-year-old male past medical history of hyperlipidemia, CLL, stroke, venous stasis bilateral lower extremity, recurrent pleural effusion, atrial fibrillation, history of CVA, chronic HFpEF, anemia who is presented from home with worsening
shortness of breath. Patient stated at home he was not having much urination. States his mouth felt dry. Upon admission patient was eval by cardiology, nephrology and pulmonary. Patient was also found to have a pleural effusion and underwent
thoracentesis. Per pulmonary patient with multiple thoracentesis and likely may require chest tube placement. Patient creatinine was found to be significantly elevated 5 with elevated potassium status post temporizing measures. Patient underwent
right heart catheterization with severe volume overloaded. Was started on 80 mg IV Lasix twice daily per nephrology. Patient without much urinary output. Patient remained with persistent hypoxemia and worsening respiratory status. Potassium
continued to worsen. Lokelma was started on admission. Creatinine continued to uptrend. Patient continued to remain oliguric. Overall patient with significant decline and thus family decided to transition patient to hospice. They want patient
to be comfortable. Hospice was consulted and patient will be transition to [facility].
Discharge Plan
-
Patient Disposition: Hospice - Inpatient [facility]
Discharge Orders:
Discharge Patient (As Directed); Ordered 02/17/25
Ordered By: Asad Stringer
Discharge Date and Time
Print Language: [place]
--- NOTE | 2025-02-17 10:59 | W.PN.UPDATE ---
Update Note
Progress Note Update
Patient has been transitioned to hospice. Pulmonary service will now sign off. Please call with any questions.
--- NOTE | 2025-02-17 11:10 | HOSPNOTE ---
Spoke with family and they are in agreement with hospice. Patient will need to remain inpatient hospice. Spoke with attending and patient will start a dilaudid drip. Admissions was called and CM aware of plan.
--- NOTE | 2025-02-17 11:25 | PTCARENOTE ---
Assumed care of pt from prev nsg shift this AM. Pt AAOx3, drowsy but arousable to voice. Pt w/no c/o pain, but is still visibly tachypneic w/retractions w/breathing. Pt is on 15L via NRB mask w/O2 sats at 99%. Pt positioned for breathing comfort. Pt
& spouse refusing IV Lasix & PO meds this AM. After speaking w/Dr Lou this AM, they are also refusing IV insulin & IV glucose this AM. They are requesting Hospice consult & 'no longer want to prolong the ultimate outcome'. This RN advised
hospitalist, Nephro, & Cardio. Orders rec'd from hospitlaists & IV Ativan administered as ordered. retail service specialist in to see pt & family. Pt to be transitioned to in-pt hospice today. Awaiting addtl orders.
== END 2025-02-17 11:39 | disposition hospice, inpatient (51) | DRG 286 ==
LOC: IVU 03:20
PROVIDERS: Internal Medicine Interventional Cardiology; Nurse Practitioner Family; Radiology Diagnostic Radiology; ADMITTING PHYSICIAN Hospitalist; ATTENDING PHYSICIAN Hospitalist; EMERGENCY PHYSICIAN Emergency Medicine; FAMILY PHYSICIAN Nurse Practitioner Family; OTHER PHYSICIAN Internal Medicine Cardiovascular Disease; OTHER PHYSICIAN Internal Medicine Critical Care Medicine; OTHER PHYSICIAN Specialist
PROC: B2141ZZ Fluoroscopy of Right Heart using Low Osmolar Contrast (ICD-10-PCS; 2025-02-16)
PROC: 4A023N6 Measurement of Cardiac Sampling and Pressure, Right Heart, Percutaneous Approach (ICD-10-PCS; 2025-02-16)
PROC: 0W9B3ZZ Drainage of Left Pleural Cavity, Percutaneous Approach (ICD-10-PCS; 2025-02-16)
DX: I11.0 Hypertensive heart disease with heart failure (principal); I50.33 Acute on chronic diastolic (congestive) heart failure; C91.10 Chronic lymphocytic leukemia of B-cell type not having achieved remission; N17.9 Acute kidney failure, unspecified; J91.8 Pleural effusion in other conditions classified elsewhere; E87.1 Hypo-osmolality and hyponatremia; I47.19 Other supraventricular tachycardia; L03.115 Cellulitis of right lower limb; L03.116 Cellulitis of left lower limb; E78.00 Pure hypercholesterolemia, unspecified; F41.9 Anxiety disorder, unspecified; D64.9 Anemia, unspecified; K21.9 Gastro-esophageal reflux disease without esophagitis; E88.09 Other disorders of plasma-protein metabolism, not elsewhere classified; R06.89 Other abnormalities of breathing; I87.8 Other specified disorders of veins; I48.0 Paroxysmal atrial fibrillation; I25.10 Atherosclerotic heart disease of native coronary artery without angina pectoris; R47.81 Slurred speech; R34 Anuria and oliguria; E87.8 Other disorders of electrolyte and fluid balance, not elsewhere classified; I44.0 Atrioventricular block, first degree; E87.5 Hyperkalemia; Z66 Do not resuscitate; I69.328 Other speech and language deficits following cerebral infarction; Z79.01 Long term (current) use of anticoagulants; Z79.899 Other long term (current) drug therapy; Z87.01 Personal history of pneumonia (recurrent); Z82.49 Family history of ischemic heart disease and other diseases of the circulatory system; Z83.3 Family history of diabetes mellitus; Z86.16 Personal history of COVID-19
CPT/HCPCS: 32555; 36600; 71045; 80048; 80053; 81003; 81015; 82805; 83735; 83880; 84443; 84484; 85025; 85027; 87015; 87070; 87205; 87502; 88112; 88305; 89051; 93005; 93451; 94640; 96361; 96374; 99291; C1769; C1894

== ENCOUNTER 2025-02-17 11:40 | Inpatient (IN) | payer OTHER, SELFPAY ==
--- NOTE | 2025-02-17 11:02 | ADM.HSP ---
Admission - Hospice
History of Present Illness
79-year-old male past medical history of hyperlipidemia, CLL, stroke, venous stasis bilateral lower extremity, recurrent pleural effusion, atrial fibrillation, history of CVA, chronic HFpEF, anemia who is presented from home with worsening
shortness of breath. Patient stated at home he was not having much urination. States his mouth felt dry. Upon admission patient was eval by cardiology, nephrology and pulmonary. Patient was also found to have a pleural effusion and underwent
thoracentesis. Per pulmonary patient with multiple thoracentesis and likely may require chest tube placement. Patient creatinine was found to be significantly elevated 5 with elevated potassium status post temporizing measures. Patient underwent
right heart catheterization with severe volume overloaded. Was started on 80 mg IV Lasix twice daily per nephrology. Patient without much urinary output. Patient remained with persistent hypoxemia and worsening respiratory status. Potassium
continued to worsen. Lokelma was started on admission. Creatinine continued to uptrend. Patient continued to remain oliguric. Overall patient with significant decline and thus family decided to transition patient to hospice. They want patient
to be comfortable. Hospice was consulted and patient will be transition to [facility].
Reason for Hospice Admission
[facility]
Review of Systems
Unable to obtain full review of systems at this time due to: Acuity
Physical Exam
General: Respiratory Distress
Respiratory: Accessory Resp Muscle Use and Tachypnea
Cardiology: Regular Rhythm (on tele)
GI: Nondistended
Musculoskeletal: Edema, Right Upper Extremity, Edema, Left Upper Extremmity, Edema, Right Lower Extremity and Edema, Left Lower Extremity
Psych: Calm
Assessment/Medication Plan
79-year-old male past medical history of hyperlipidemia, CLL, stroke, venous stasis bilateral lower extremity, recurrent pleural effusion, atrial fibrillation, history of CVA, chronic HFpEF, anemia who is presented from home with worsening
shortness of breath. Patient stated at home he was not having much urination. States his mouth felt dry. Upon admission patient was eval by cardiology, nephrology and pulmonary. Patient was also found to have a pleural effusion and underwent
thoracentesis. Per pulmonary patient with multiple thoracentesis and likely may require chest tube placement. Patient creatinine was found to be significantly elevated 5 with elevated potassium status post temporizing measures. Patient underwent
right heart catheterization with severe volume overloaded. Was started on 80 mg IV Lasix twice daily per nephrology. Patient without much urinary output. Patient remained with persistent hypoxemia and worsening respiratory status. Potassium
continued to worsen. Lokelma was started on admission. Creatinine continued to uptrend. Patient continued to remain oliguric. Overall patient with significant decline and thus family decided to transition patient to hospice. They want patient
to be comfortable. Hospice was consulted and patient will be transition to [facility].
Assessment
Acute hypoxic respiratory failure secondary to acute on chronic diastolic heart failure exacerbation
Acute kidney injury
Hyperkalemia
Hyponatremia
Pleural effusion recurrent
CLL
Anemia
Plan
Patient will be transition to [facility]
patient with persistent respiratory symptoms and require increased amount of oxygen will be started on Dilaudid infusion
Valium as needed
Antisecretory meds
Hospice team following
DVT prophylaxis
DNR/DNI
Discussed with hospice team
Discussed with patient spouse at bedside in detail. Agreeable with the plan. Spouse wants patient's to be comfortable and without any pain or discomfort.
[2025-02-17] MEDS: DILAUDID 50 IV (12:24)
[2025-02-17] MEDS: DILAUDID 0.25 MG IV (12:38)
--- NOTE | 2025-02-17 13:02 | CM ---
pt currently being managed by [facility].
[2025-02-17] MEDS: VALIUM INJECTION 2 MG IV (13:36)
[2025-02-17] MEDS: ROBINUL 0.2 MG IV (15:14)
--- NOTE | 2025-02-17 17:02 | W.PN.DEATH ---
Pronouncement of
-
Called to see patient to pronounce.
No spontaneous heart tones or respirations noted.
Patient not responsive to verbal stimuli.
Patient is pronounced .
Time of : 16:45
Date of : 02/17/25
Cause of : Acute hypoxic respiratory failure
Family Notified: Yes
--- NOTE | 2025-02-17 17:02 | PTCARENOTE ---
Pt at 1645 w/ and family at bedside. Hospitalist in to pronounce pt. senior contract specialist notified. [facility] called.
--- NOTE | 2025-02-17 18:59 | W.DCSUMMARY ---
Discharge Summary
Discharge Data
Date of Admission: 02/17/25
Date of Discharge: 02/17/25
-
Pending Results: No
Hospital Course
79-year-old male past medical history of hyperlipidemia, CLL, stroke, venous stasis bilateral lower extremity, recurrent pleural effusion, atrial fibrillation, history of CVA, chronic HFpEF, anemia who is presented from home with worsening
shortness of breath. Patient was admitted with acute on chronic heart failure exacerbation, acute kidney injury, hyperkalemia, oligoanuria, pleural effusion status post thoracentesis. overall patient with significant decline and thus family decided
to transition patient to hospice. They want patient to be comfortable. Hospice was consulted and patient will be transition to [facility]. Patient was started on Dilaudid infusion and Valium as patient was severely symptomatic. Patient's symptoms
improved with IV medication. Patient on hospice measures on 02/17/2025 1645.
Discharge Plan
-
Patient Disposition:
Date/Time
Date/Time: 02/17/25 16:45
Discharge Date and Time
Discharge Date/Time: 02/17/25 16:45
Print Language: SINHAL[place]
== END 2025-02-17 16:45 | disposition expired | DRG 951 ==
LOC: IVU 11:40
PROVIDERS: ADMITTING PHYSICIAN Hospitalist
DX: Z51.5 Encounter for palliative care (principal); I50.33 Acute on chronic diastolic (congestive) heart failure; J96.01 Acute respiratory failure with hypoxia; C91.10 Chronic lymphocytic leukemia of B-cell type not having achieved remission; E87.1 Hypo-osmolality and hyponatremia; N17.9 Acute kidney failure, unspecified; E78.5 Hyperlipidemia, unspecified; I48.91 Unspecified atrial fibrillation; I87.8 Other specified disorders of veins; D64.9 Anemia, unspecified; R34 Anuria and oliguria; E87.5 Hyperkalemia; Z66 Do not resuscitate; Z86.73 Personal history of transient ischemic attack (TIA), and cerebral infarction without residual deficits